=== PATIENT | female | born 1980 | race African-American/Black ===

== ENCOUNTER 2017-07-19 01:20 | Emergency (ER) | payer OTHER ==
[~2017-07-19] VITALS: Ht 170.2 cm; Wt 112.8 kg
[~2017-07-19 01:20] MED LIST: LISI-461 PO; METO25TA3 PO
[2017-07-19 01:25] VITALS: TEMP 36.7; Ht 170.2 cm; Wt 112.8 kg
[2017-07-19] MEDS ORDERED: SODIUM CHLORIDE 0.9% 1000ML 1,000 ML IV STA (01:42)
[2017-07-19] MEDS ORDERED: LORAZEPAM 2 MG/ML 1 ML VIAL IV STA (01:42)
[2017-07-19] MEDS ORDERED: LISI10TA PO (01:58)
[2017-07-19] MEDS ORDERED: METO50TA7 PO (01:58)
[2017-07-19 02:03] VITALS: O2SAT 98
[2017-07-19 02:10] LABS: BASO % 0.5 %; BASO ABS # 0.04 K/uL (0-0.2); COMPLETE YES; EOS % 1.8 %; HEMATOCRIT 42.2 % (37-47); IG% 0.1 %; LYMPH % 34.8 %; LYMPH ABS # 2.53 K/uL (1.2-3.4); MEAN CELL VOLUME 81.8 fL (80-100); MEAN CORPUSCULAR HEMOGLOBIN 26.9 pg (25-34); MEAN CORPUSCULAR HGB CONC 32.9 g/dl (32-36); MEAN PLATELET VOLUME 11.1 fL (7.4-10.4); MONO % 6.5 %; NEUT % 56.3 %; PLATELET COUNT 242 K/uL (130-400); RED BLOOD COUNT 5.16 M/uL (4.2-5.4); WHITE BLOOD COUNT 7.28 K/uL (4.8-10.8)
[2017-07-19 02:30] LABS: ALT/SGPT 23 U/L (12-78); AST/SGOT 13 U/L (15-37); BLOOD UREA NITROGEN 12 mg/dl (7-18); BUN/CREATININE RATIO 15.3 (10-20); CALCIUM 8.5 mg/dl (8.5-10.1); CARBON DIOXIDE 27 mmol/L (21-32); CHLORIDE 108 mmol/L (98-107); CREATININE 0.78 mg/dl (0.60-1.20); GLUCOSE 115 mg/dl (70-99); POTASSIUM 3.4 mmol/L (3.5-5.1); SODIUM 141 mmol/L (136-145)
[2017-07-19 02:34] LABS: ALKALINE PHOSPHATASE 32 U/L (45-117)
[2017-07-19 02:59] VITALS: BP 173/115; PULSE 82; O2SAT 99
--- NOTE | 2017-07-19 03:06 | EMERGENCY ROOM VISIT NOTE ---
History First contact with patient: :28 Chief Complaint: HEAD PAIN Stated Complaint: HEAD PAIN, DIZZY History of Present Illness The patient is a 37 year old female who presents to the Emergency Room with complaints of feeling stressed out and overwhelmed after finding out that her and is dying and will pass away within 24 hours. Patient states she is very upset about this. She now has a headache. Patient denies suicidal or homicidal ideations. Patient denies chest pain, dyspnea, fever, chills, cough, congestion, abdominal pain. Patient states she just feels overwhelmed about this news. She states she has a history of depression. Review of Systems See HPI for pertinent positives & negatives. A total of 10 systems reviewed and were otherwise negative. Past Medical/Surgical History Surgical Problems: (1) No pertinent past surgical history Hypertension Family History No pertinent family history Social History Smoking Status: Current Every Day Smoker Drug Use: none Marital Status: Housing Status: lives with family Occupation Status: employed Current/Historical Medications Scheduled Lisinopril (Prinivil), 10 MG PO DAILY Metoprolol Succ (Toprol Xl) (Toprol-Xl), 50 MG PO DAILY Physical Exam Vital Signs Date Time Temp Pulse Resp B/P (MAP) Pulse Ox O2 Delivery O2 Flow Rate FiO2 07/19/17 02:59 82 18 173/115 99 Room Air 07/19/17 02:03 98 Room Air 07/19/17 02:03 98 Room Air 07/19/17 01:25 36.7 76 20 198/126 98 Room Air Physical Exam VITALS: Vitals are noted on the nurse's note and reviewed by myself. Vital signs hypertensive GENERAL: Anxious tearful female who appears upset, in no acute distress, nondiaphoretic, well-developed well-nourished. SKIN: The skin was without rashes, erythema, edema, or bruising. There is no tenting of the skin. Capillary reflex less than 2 seconds. HEAD: Normocephalic atraumatic. EARS: External auditory canals clear, tympanic membranes pearly perez without erythema or effusion bilaterally. EYES: Pupils equal round and reactive to light and accommodation. Conjunctivae without injection, sclerae without icterus. Extraocular movements intact. NOSE: Patent, turbinates without inflammation or discharge. No sinus tenderness. MOUTH: Mucous membranes moist. Pharynx without erythema or exudate. Uvula midline. Airway patent. Tongue does not deviate. NECK: Supple without nuchal rigidity. No lymphadenopathy. No thyromegaly. Cervical spine is nontender. No JVD. HEART: Regular rate and rhythm without murmurs gallops or rubs. LUNGS: Clear to auscultation bilaterally without wheezes, rales or rhonchi. No dullness to percussion. No retractions or accessory muscle use. ABDOMEN: Positive bowel sounds x 4. Normal tympanic percussion. Soft, nontender, without masses or organomegaly. Dao sign negative. No guarding or rebound tenderness. MUSCULOSKELETAL: No muscle atrophy, erythema, or edema noted. NEURO: Patient was alert and oriented to person place and time. Normal sensation to light and sharp touch. No focal neurological deficits. Medical Decision & Procedures Laboratory Results 07/19/17 02:00 Red Blood Count 5.16, Mean Corpuscular Volume 81.8, Mean Corpuscular Hemoglobin 26.9, Mean Corpuscular Hemoglobin Concent 32.9, Mean Platelet Volume 11.1, Neutrophils (%) (Auto) 56.3, Lymphocytes (%) (Auto) 34.8, Monocytes (%) (Auto) 6.5, Eosinophils (%) (Auto) 1.8, Basophils (%) (Auto) 0.5, Neutrophils # (Auto) 4.10, Lymphocytes # (Auto) 2.53, Monocytes # (Auto) 0.47, Eosinophils # (Auto) 0.13, Basophils # (Auto) 0.04 07/19/17 02:00 Test 07/19/17 02:00 White Blood Count 7.28 K/uL (4.8-10.8) Red Blood Count 5.16 M/uL (4.2-5.4) Hemoglobin 13.9 g/dL (12.0-16.0) Hematocrit 42.2 % (37-47) Mean Corpuscular Volume 81.8 fL (80-100) Mean Corpuscular Hemoglobin 26.9 pg (25-34) Mean Corpuscular Hemoglobin Concent 32.9 g/dl (32-36) Platelet Count 242 K/uL (130-400) Mean Platelet Volume 11.1 fL (7.4-10.4) Neutrophils (%) (Auto) 56.3 % Lymphocytes (%) (Auto) 34.8 % Monocytes (%) (Auto) 6.5 % Eosinophils (%) (Auto) 1.8 % Basophils (%) (Auto) 0.5 % Neutrophils # (Auto) 4.10 K/uL (1.4-6.5) Lymphocytes # (Auto) 2.53 K/uL (1.2-3.4) Monocytes # (Auto) 0.47 K/uL (0.11-0.59) Eosinophils # (Auto) 0.13 K/uL (0-0.5) Basophils # (Auto) 0.04 K/uL (0-0.2) RDW Standard Deviation 43.3 fL (36.4-46.3) RDW Coefficient of Variation 14.5 % (11.5-14.5) Immature Granulocyte % (Auto) 0.1 % Immature Granulocyte # (Auto) 0.01 K/uL (0.00-0.02) Anion Gap 6.0 mmol/L (3-11) Est Creatinine Clear Calc Drug Dose 129.2 ml/min Estimated GFR () 113.4 Estimated GFR (Non- 97.8 BUN/Creatinine Ratio 15.3 (10-20) Calcium Level 8.5 mg/dl (8.5-10.1) Total Bilirubin 0.2 mg/dl (0.2-1) Direct Bilirubin < 0.1 mg/dl (0-0.2) Aspartate Amino Transf (AST/SGOT) 13 U/L (15-37) Alanine Aminotransferase (ALT/SGPT) 23 U/L (12-78) Alkaline Phosphatase 32 U/L (45-117) Troponin I < 0.015 ng/ml (0-0.045) Total Protein 7.5 gm/dl (6.4-8.2) Albumin 3.3 gm/dl (3.4-5.0) Medications Administered Medications (Trade) Dose Ordered Sig/Ronny Route Start Time Stop Time Status Last Admin Dose Admin Sodium Chloride 1,000 ml @ 999 mls/hr Q1H1M STAT IV 07/19/17 01:42 07/19/17 02:42 DC 07/19/17 02:00 999 MLS/HR Lorazepam (Ativan Inj) 1 mg NOW STAT IV 07/19/17 01:42 07/19/17 01:43 DC 07/19/17 02:01 1 MG ED Course Prior records/ancillary studies reviewed and summarized above. Nursing notes reviewed. The patient's history was concerning for feeling overwhelmed and stressed with headache after hearing that news about her grandmother passing away. Differential diagnosis: Etiologies such as situational response, stress reaction, behavior health, metabolic, infection, hypo/hyperglycemia, electrolyte abnormalities, cardiac sources, intracerebral event, toxicologic, neurologic, as well as others were entertained. Physical examination: As above. ER treatment provided: IV Lock Ativan On reassessment the patient felt better. Diagnostics interpretation by me: ECG: Normal sinus, normal intervals, no acute ST-T wave changes, impression normal sinus rhythm interpreted by myself The labs revealed negative troponin. Stable H&H Exam and history seem consistent with headache and high blood pressure most likely related to patient's recent bad news about her grandmother passing. This mostly the is a stress reaction. Patient felt better after being medicated as above. She denies any suicidal or homicidal ideations. She is advised to rest, decrease stress and follow-up family care in a few days or here in the ER sooner for headache, fevers, chest pains, no S4 yourself, worsening signs or symptoms or as needed. By the evaluation outlined above emergent etiologies such as infection, electrolyte abnormalities, cardiac sources, intracerebral event, toxologic, neurologic, abnormalities blood glucose, metabolic, as well as others were deemed relatively unlikely. The pt informed about the findings as listed above. All questions were answered and pleased with the treatment. Return instructions were outlined and the patient was discharged in stable condition. Outpatient prescription management: ativan Referral: The patient was referred back to primary care physician for follow-up in 2 to 3 days for a recheck of the current condition. case reviewed with my Attending Medical Decision As above Impression Primary Impression: Stress reaction Departure Information Dispostion Home / Self-Care Condition GOOD Referrals Disha CHOU M.D. (PCP) Patient Instructions My [facility] Additional Instructions DO NOT drive, drink alcohol, operate machinery, or perform dangerous activities today. You were given medications in the ER that can affect your ability to safely function or operate a vehicle. Ibuprofen(Motrin, Advil) may be used for fever or pain. Use 600mg every six hours as needed. Take with food. Avoid using more than 2400mg in a 24 hour period. Do not use 2400mg per day for more than three consecutive days without physician direction. Prolonged inappropriate use can lead to stomach upset or ulcers. (AND/OR) Acetaminophen(Tylenol) may be used for fever or pain. Use 1000mg every six hours as needed. Avoid using more than 3000mg in a 24 hour period. Ativan 1 m tablet every 6-8 hours as needed for anxiety. No alcohol Or driving on this medication. Rest and drink plenty of fluids as tolerated. Decrease stress. Continue current medications. Return to the ER immediately for abdominal pain, vomiting, fevers, chest pains, difficulty breathing, mood problems, worsening of your condition, or as needed. Follow up with your primary physician in 2-3 days for a recheck of your current condition.
[2017-07-19] MEDS ORDERED: ATIVAN 1MG HOMEPACK PO ONE (03:15)
== END 2017-07-19 03:22 | disposition home or self-care (01) ==
LOC: C.EDB 01:20
DX: F43.9 Reaction to severe stress, unspecified (principal); I10 Essential (primary) hypertension; F32.9 Major depressive disorder, single episode, unspecified; F17.210 Nicotine dependence, cigarettes, uncomplicated; Z79.899 Other long term (current) drug therapy

== ENCOUNTER 2024-01-22 20:47 | Observation (INO) ==
--- NOTE | 2024-01-22 21:29 | Emergency Department Note ---
Impression & Plan Vertigo, Abnormal angiogram of head, Hypomagnesemia, Hyperglycemia ED Provider Note NAME: MEAGAN DONNELLY AGE: 43 SEX: F : 1980 ARRIVES VIA: Walk-In INFORMANT: Patient ED PROVIDER(S): Kam Valiente DO CHIEF COMPLAINT: Dizzy and nauseated HPI: Patient is a 43-year-old female who presents to the ER for 3 to 4 days worth of dizziness. She notes she feels the room spinning. This generally occurs in the afternoon. It resolves throughout the remainder of the day. It is worse with movement of the head and any changing of positions. If she states still goes away. She denies any change or loss of vision. No chest pain or shortness of breath. No weakness or numbness in the arms or legs. She does admit to some nausea. No dysuria urgency or frequency. No other exacerbating or remitting factors. ADDITIONAL HISTORY OBTAINED: Per HPI Chronic Medical/Social Conditions Affecting Care: Per HPI PAST MEDICAL HISTORY:See Below PAST SURGICAL HISTORY:See Below FAMILY HISTORY:See Below SOCIAL HISTORY:See Below HOME MEDICATIONS:See Below ALLERGIES:See Below VITALS:See Below PHYSICAL EXAMINATION: GENERAL: Sitting up in bed, alert, well appearing, well nourished, no distress, non-toxic EYE EXAM: normal conjunctiva. PERRL and EOM's intact. OROPHARYNX: no exudate, no erythema, lips, buccal mucosa, and tongue normal and mucous membranes are moist NECK: supple, no nuchal rigidity, no adenopathy, non-tender LUNGS: Clear to auscultation. Normal chest wall mechanics HEART: no murmurs, S1 normal and S2 normal ABDOMEN: abdomen soft, non-tender, normo-active bowel sounds, no masses, no rebound or guarding. BACK: Back is symmetrical on inspection and there is no deformity, no midline tenderness, no CVA tenderness. SKIN: no rashes and no bruising UPPER EXTREMITIES: upper extremities are grossly normal. LOWER EXTREMITIES: No pitting edema. NEURO EXAM: Normal sensorium, cranial nerves II-XII intact, normal speech, no weakness of arms, no weakness of legs. No drift. Finger to nose intact. Gross sensation intact. MEDICAL DECISION MAKING: Patient is a 43-year-old female who presents ER for above-stated complaint. IV was established blood work was obtained. Labs show no significant leukocytosis or anemia. BMP with mild hypokalemia 3.2. Creatinine slightly elevated at 1.6. LFTs bilirubin was unremarkable. Mag at 1.4. Lipase was normal. hCG was negative. UA was contaminated. No urinary symptoms. She was given Antivert and fluids and her symptoms did not improve. CT angio of the head and neck does suggest abnormality of the right vert. This was discussed with Dr. Taz Lara from [facility] neurology. He recommended admission and MRI and full workup. I discussed this with the patient as well as the hospitalist for further evaluation management treatment. Consults/Care Managements Discussions: Per [facility] Triage Nursing notes reviewed. Limited review of prior medical records performed Vital Signs: reviewed and remarkable for no significant abnormalities Differential diagnosis: Differential diagnosis includes etiologies such as benign positional vertigo, dehydration, hypovolemia, anemia, tumor, infection, hypoglycemia, electrolyte abnormalities, cardiac sources, intracerebral event, toxicologic, neurological, as well as others were entertained. ER treatment provided: See below Diagnostics interpreted by me include EKG and cardiac monitoring as listed below: -Cardiac Monitoring: An order was placed for continuous cardiac monitoring. The monitor shows a rate of 80 with sinus rhythm. -ECG: Sinus rhythm rate 85 Normal axis No PVCs QTc 442 -Laboratory studies:Interpreted by me as stated above in MDM and shown below. Imaging studies: Xrays: As interpreted by me: Portable AP upright 1 view of the chest shows no focal CTs show: CT angios of the head and neck as described above Procedures:none Critical Care: None Past Med/Surg History Medical History Diabetes Hypertension Surgical History History of carpal tunnel surgery Social History Smoking Status: Current some day smoker Tobacco Type: Cigarettes Preferred Language: Lebanese Feels Safe at Home: Yes Allergies Allergies Allergy/AdvReac Type Severity Reaction Status Date / Time No Known Allergies Allergy Verified 01/23/24 00:05 Home Meds Home Medications Medication Instructions Recorded Confirmed hydrochlorothiazide 25 mg tablet 25 mg PO QAM 11/22/18 01/22/24 lisinopril 40 mg tablet 40 mg PO QAM 11/22/18 01/23/24 metformin 500 mg tablet,extended 1,000 mg PO QDD 11/22/18 01/23/24 release 24 hr metoprolol succinate 100 mg 100 mg PO QAM 11/22/18 01/23/24 tablet,extended release 24 hr albuterol sulfate 90 mcg/actuation 2 puff inhalation Q4H PRN Wheezing 09/21/22 01/23/24 aerosol inhaler amlodipine 5 mg tablet 5 mg PO QAM 09/21/22 01/23/24 metoprolol succinate 50 mg 50 mg PO QAM 09/21/22 01/22/24 tablet,extended release 24 hr hydralazine 25 mg tablet 25 mg PO DAILY 03/01/23 01/22/24 liraglutide 0.6 mg/0.1 mL (18 mg/3 1.8 mg subcut DAILY 01/22/24 01/22/24 mL) subcutaneous pen injector (eXpresso 3-Raul) escitalopram oxalate 10 mg tablet 10 mg PO QAM 01/23/24 01/23/24 Results & Data (ED) Vital Signs Vital Signs - 24 hr 01/22/24 20:51 01/22/24 21:09 01/22/24 21:10 Temperature 36.1 C L Temperature Source Temporal Artery Scan Pulse Rate 86 86 88 Pulse Rate [Finger] Pulse Rate from SpO2 Sensor Pulse Rhythm [Finger] Respiratory Rate 16 17 Respiratory Effort / Characteristics Respiratory Depth Blood Pressure 135/89 Blood Pressure [Left Arm] Blood Pressure Mean 104 Blood Pressure Mean [Left Arm] Pulse Oximetry 98 Oxygen Delivery Method Room Air Sepsis Recent Fever Within 48 Hours No Sepsis New/Unexplained Change in Mental Status No Sepsis Action Taken by Nursing No Action Required 01/22/24 21:10 01/22/24 21:16 01/22/24 21:16 Temperature Temperature Source Pulse Rate 94 H 90 90 Pulse Rate [Finger] Pulse Rate from SpO2 Sensor 90 Pulse Rhythm [Finger] Respiratory Rate 15 20 20 Respiratory Effort / Characteristics Respiratory Depth Blood Pressure 116/90 Blood Pressure [Left Arm] Blood Pressure Mean 99 Blood Pressure Mean [Left Arm] Pulse Oximetry 98 98 Oxygen Delivery Method Sepsis Recent Fever Within 48 Hours Sepsis New/Unexplained Change in Mental Status Sepsis Action Taken by Nursing 01/22/24 21:17 01/22/24 21:20 01/22/24 21:30 Temperature Temperature Source Pulse Rate 99 H 78 Pulse Rate [Finger] 87 Pulse Rate from SpO2 Sensor 80 78 Pulse Rhythm [Finger] Regular Respiratory Rate 14 12 14 Respiratory Effort / Characteristics Non-Labored Respiratory Depth Normal Blood Pressure Blood Pressure [Left Arm] 116/90 Blood Pressure Mean Blood Pressure Mean [Left Arm] 98 Pulse Oximetry 98 99 99 Oxygen Delivery Method Room Air Sepsis Recent Fever Within 48 Hours Sepsis New/Unexplained Change in Mental Status Sepsis Action Taken by Nursing 01/22/24 21:55 01/22/24 22:00 01/22/24 22:03 Temperature Temperature Source Pulse Rate 93 H 81 81 Pulse Rate [Finger] Pulse Rate from SpO2 Sensor 81 80 Pulse Rhythm [Finger] Respiratory Rate 11 L 15 15 Respiratory Effort / Characteristics Respiratory Depth Blood Pressure Blood Pressure [Left Arm] Blood Pressure Mean Blood Pressure Mean [Left Arm] Pulse Oximetry 98 99 Oxygen Delivery Method Sepsis Recent Fever Within 48 Hours Sepsis New/Unexplained Change in Mental Status Sepsis Action Taken by Nursing 01/22/24 22:03 01/22/24 22:10 01/22/24 22:20 Temperature Temperature Source Pulse Rate 81 75 74 Pulse Rate [Finger] Pulse Rate from SpO2 Sensor 76 75 Pulse Rhythm [Finger] Respiratory Rate 15 12 16 Respiratory Effort / Characteristics Respiratory Depth Blood Pressure 119/74 Blood Pressure [Left Arm] Blood Pressure Mean 95 Blood Pressure Mean [Left Arm] Pulse Oximetry 99 98 100 Oxygen Delivery Method Sepsis Recent Fever Within 48 Hours Sepsis New/Unexplained Change in Mental Status Sepsis Action Taken by Nursing 01/22/24 22:30 01/22/24 22:30 01/22/24 22:40 Temperature Temperature Source Pulse Rate 75 75 89 Pulse Rate [Finger] Pulse Rate from SpO2 Sensor 75 88 Pulse Rhythm [Finger] Respiratory Rate 13 13 21 Respiratory Effort / Characteristics Respiratory Depth Blood Pressure 130/88 Blood Pressure [Left Arm] Blood Pressure Mean 101 Blood Pressure Mean [Left Arm] Pulse Oximetry 100 100 97 Oxygen Delivery Method Sepsis Recent Fever Within 48 Hours Sepsis New/Unexplained Change in Mental Status Sepsis Action Taken by Nursing 01/22/24 22:50 01/22/24 23:00 01/22/24 23:00 Temperature Temperature Source Pulse Rate 82 71 71 Pulse Rate [Finger] Pulse Rate from SpO2 Sensor 77 72 Pulse Rhythm [Finger] Respiratory Rate 15 12 12 Respiratory Effort / Characteristics Respiratory Depth Blood Pressure 135/94 Blood Pressure [Left Arm] Blood Pressure Mean 121 Blood Pressure Mean [Left Arm] Pulse Oximetry 98 99 99 Oxygen Delivery Method Sepsis Recent Fever Within 48 Hours Sepsis New/Unexplained Change in Mental Status Sepsis Action Taken by Nursing 01/22/24 23:10 01/22/24 23:20 01/22/24 23:30 Temperature Temperature Source Pulse Rate 76 89 76 Pulse Rate [Finger] Pulse Rate from SpO2 Sensor 78 90 76 Pulse Rhythm [Finger] Respiratory Rate 26 H 21 16 Respiratory Effort / Characteristics Respiratory Depth Blood Pressure Blood Pressure [Left Arm] Blood Pressure Mean Blood Pressure Mean [Left Arm] Pulse Oximetry 99 96 99 Oxygen Delivery Method Sepsis Recent Fever Within 48 Hours Sepsis New/Unexplained Change in Mental Status Sepsis Action Taken by Nursing 01/22/24 23:31 01/22/24 23:31 01/22/24 23:40 Temperature Temperature Source Pulse Rate 75 75 84 Pulse Rate [Finger] Pulse Rate from SpO2 Sensor 76 82 Pulse Rhythm [Finger] Respiratory Rate 18 18 12 Respiratory Effort / Characteristics Respiratory Depth Blood Pressure 148/96 H Blood Pressure [Left Arm] Blood Pressure Mean 109 Blood Pressure Mean [Left Arm] Pulse Oximetry 99 99 99 Oxygen Delivery Method Sepsis Recent Fever Within 48 Hours Sepsis New/Unexplained Change in Mental Status Sepsis Action Taken by Nursing 01/22/24 23:50 01/23/24 00:00 01/23/24 00:00 Temperature Temperature Source Pulse Rate 81 80 80 Pulse Rate [Finger] Pulse Rate from SpO2 Sensor 80 83 Pulse Rhythm [Finger] Respiratory Rate 17 12 12 Respiratory Effort / Characteristics Respiratory Depth Blood Pressure 143/100 H Blood Pressure [Left Arm] Blood Pressure Mean 106 Blood Pressure Mean [Left Arm] Pulse Oximetry 99 100 100 Oxygen Delivery Method Sepsis Recent Fever Within 48 Hours Sepsis New/Unexplained Change in Mental Status Sepsis Action Taken by Nursing 01/23/24 00:10 01/23/24 00:20 01/23/24 00:30 Temperature Temperature Source Pulse Rate 72 86 71 Pulse Rate [Finger] Pulse Rate from SpO2 Sensor 69 80 72 Pulse Rhythm [Finger] Respiratory Rate 8 L 11 L 14 Respiratory Effort / Characteristics Respiratory Depth Blood Pressure Blood Pressure [Left Arm] Blood Pressure Mean Blood Pressure Mean [Left Arm] Pulse Oximetry 98 99 98 Oxygen Delivery Method Sepsis Recent Fever Within 48 Hours Sepsis New/Unexplained Change in Mental Status Sepsis Action Taken by Nursing 01/23/24 00:31 01/23/24 00:31 01/23/24 00:40 Temperature Temperature Source Pulse Rate 71 71 76 Pulse Rate [Finger] Pulse Rate from SpO2 Sensor 77 76 Pulse Rhythm [Finger] Respiratory Rate 16 16 14 Respiratory Effort / Characteristics Respiratory Depth Blood Pressure 139/88 Blood Pressure [Left Arm] Blood Pressure Mean 99 Blood Pressure Mean [Left Arm] Pulse Oximetry 98 98 98 Oxygen Delivery Method Room Air Sepsis Recent Fever Within 48 Hours Sepsis New/Unexplained Change in Mental Status Sepsis Action Taken by Nursing 01/23/24 00:50 Temperature Temperature Source Pulse Rate 74 Pulse Rate [Finger] Pulse Rate from SpO2 Sensor 76 Pulse Rhythm [Finger] Respiratory Rate 17 Respiratory Effort / Characteristics Respiratory Depth Blood Pressure Blood Pressure [Left Arm] Blood Pressure Mean Blood Pressure Mean [Left Arm] Pulse Oximetry 98 Oxygen Delivery Method Sepsis Recent Fever Within 48 Hours Sepsis New/Unexplained Change in Mental Status Sepsis Action Taken by Nursing Laboratory Data 01/22/24 21:04 01/22/24 21:04 Lab Results 01/22/24 01/22/24 01/22/24 Range/Units 21:04 21:05 21:44 WBC 7.40 (4.8-10.8) K/ul RBC 5.54 H (4.20-5.40) M/uL Hgb 14.3 (12.0-16.0) g/dl Hct 43.0 (37.0-47.0) % MCV 77.6 L (80.0-100.0) fL MCH 25.8 (25.0-34.0) pg MCHC 33.3 (32.0-36.0) g/dL RDW Std Deviation 41.7 (36.4-46.3) fL RDW Coeff of Kd 15.0 H (11.5-14.5) % Plt Count 324 (130-400) K/uL MPV 11.8 (9.4-12.4) fL Immature Gran % (Auto) 0.4 % Neut % (Auto) 56.1 % Lymph % (Auto) 28.8 % Routt % (Auto) 13.0 % Eos % (Auto) 0.5 % Baso % (Auto) 1.2 % Neut # (Auto) 4.15 (1.40-6.50) K/uL Lymph # (Auto) 2.13 (1.20-3.40) K/uL [place] # (Auto) 0.96 H (0.11-0.59) K/uL Eos # (Auto) 0.04 (0.00-0.50) K/uL Baso # (Auto) 0.09 (0.00-0.20) K/uL Immature Gran # (Auto) 0.03 (0.01-0.20) K/uL Sodium 138 (136-145) mmol/L Potassium 3.2 L (3.5-5.1) mmol/L Chloride 100 (98-107) mmol/L Carbon Dioxide 26 (21-32) mmol/L Anion Gap 12 H (3-11) BUN 24 H (6-23) mg/dl Creatinine 1.65 H (0.6-1.2) mg/dl Est Cr Clr Drug Dosing 55.6 ml/min Est GFR ( Amer) 43.9 ml/min Est GFR (Non-Af Amer) 37.9 ml/min BUN/Creatinine Ratio 14.5 (10-20) Glucose 146 H (70-99(Fasting)) mg/dl Calcium 10.0 (8.6-10.3) mg/dl Magnesium 1.4 L (1.7-2.4) mg/dl Total Bilirubin 0.5 (0.2-1.0) mg/dl AST 17 (13-39) U/L ALT 19 (7-52) U/L Alkaline Phosphatase 36 (34-104) U/L Troponin I High Sens 10.0 (0-14) pg/ml Total Protein 7.8 (6.0-8.3) gm/dl Albumin 4.4 (3.4-5.0) gm/dl Globulin 3.4 (2.5-4.0) gm/dl Albumin/Globulin Ratio 1.3 (0.9-2) Lipase 52 (11-82) U/L HCG, Qual Negative (Negative) Urine Color Dark Yellow Urine Appearance Turbid A (Clear) Urine pH 5.0 (4.5-7.5) Ur Specific [place] 1.029 (1.000-1.030) Urine Protein 2+ H (Negative) Urine Glucose (UA) Negative (Negative) Urine Ketones 1+ H (Negative) Urine Blood Negative (Negative) Urine Nitrite Negative (Negative) Urine Bilirubin 1+ H (Negative) Urine Urobilinogen Negative (Negative) Ur Leukocyte Esterase Trace H (Negative) Urine WBC (Auto) 10-30 H (0-5) /hpf Urine RBC (Auto) 0-4 (0-4) /hpf U Hyaline Cast (Auto) 1-5 (0-5) /lpf U Epithel Cells (Auto) >30 H (0-5) /lpf Urine Bacteria (Auto) 4+ H (Negative) Urine Yeast Not Reportable Administered Medications Discontinued Medications Sodium Chloride (Nss) 1,000 mls @ 999 mls/hr IV .Q1H1M KIP Stop: 01/22/24 23:30 Last Infusion: 01/22/24 23:34 Dose: Infused Documented By: Admin: 01/22/24 22:22 Dose: 999 mls/hr Documented By: Infusion: 01/22/24 22:22 Dose: Infused Documented By: Admin: 01/22/24 21:44 Dose: 999 mls/hr Documented By: SOLO Sodium Chloride (Nss) 500 mls @ 999 mls/hr IV .Q31M ONE Stop: 01/22/24 23:58 Last Infusion: 01/23/24 00:15 Dose: Infused Documented By: Admin: 01/22/24 23:42 Dose: 999 mls/hr Documented By: SOLO Ioversol (Optiray 320 125ml) 118 ml IV ONCE ONE Stop: 01/22/24 21:56 Last Admin: 01/22/24 21:55 Dose: 118 ml Documented By: LAURA Meclizine HCl (Meclizine Hcl 25 Mg Tab) 25 mg PO NOW STA Stop: 01/22/24 21:29 Last Admin: 01/22/24 21:43 Dose: 25 mg Documented By: SOLO Potassium Chloride (Potassium Chloride 10 Meq Tabcr) 40 meq PO NOW STA Stop: 01/22/24 23:29 Last Admin: 01/22/24 23:41 Dose: 40 meq Documented By: SOLO Imaging Data Radiologist's Impression: Head CTA 01/22/24 21:27 Exam(s): CTA HEAD W/WO Contrast IV Amt: 118 cc opti 320 EXAM: CT Angiography Head Without and With Intravenous Contrast CLINICAL HISTORY: Reason for exam: dizzy. TECHNIQUE: Axial computed tomographic angiography images of the head without and with intravenous contrast. CTDI is 38.03 mGy and DLP is 1204.43 mGy-cm. Automated exposure control was utilized for the study. A dose lowering technique was utilized adhering to the principles of ALARA. MIP reconstructed images were created and reviewed. CONTRAST: Patient received 118 cc opti 320 of IV contrast COMPARISON: None. FINDINGS: VASCULATURE: Right internal carotid artery: No acute findings. Intracranial segment is patent with no significant stenosis. No aneurysm. Right anterior cerebral artery: Unremarkable. No occlusion or significant stenosis. No aneurysm. Right middle cerebral artery: Unremarkable. No occlusion or significant stenosis. No aneurysm. Right posterior cerebral artery: Unremarkable. No occlusion or significant stenosis. No aneurysm. Right vertebral artery: There is diffuse very small size/hypoplastic right vertebral artery with the distal aspect suboptimally visualized, difficult to exclude stenosis or near occlusion versus congenital small size. Left internal carotid artery: No acute findings. Intracranial segment is patent with no significant stenosis. No aneurysm. Left anterior cerebral artery: Unremarkable. No occlusion or significant stenosis. No aneurysm. Left middle cerebral artery: Unremarkable. No occlusion or significant stenosis. No aneurysm. Left posterior cerebral artery: Unremarkable. No occlusion or significant stenosis. No aneurysm. Left vertebral artery: There is a dominant left-sided vertebral artery otherwise patent and within normal limits. Basilar artery: Unremarkable. No occlusion or significant stenosis. No aneurysm. HEAD: Brain: No acute findings. No hemorrhage. No edema. Normal enhancement. Ventricles: Unremarkable. No ventriculomegaly. Bones/joints: No acute fracture. Soft tissues: Unremarkable. Sinuses: Unremarkable as visualized. No acute sinusitis. Mastoid air cells: Unremarkable as visualized. No mastoid effusion. 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 Otherwise negative CT angiogram of the brain with no focal stenosis, occlusion or aneurysm. Electronically signed by: Rose Mclean MD 01/22/24 22:29 PM Neck CTA 01/22/24 21:27 Exam(s): CTA NECK With Contrast IV Amt: 118 cc opti 320 EXAM: CT Angiography Neck With Intravenous Contrast CLINICAL HISTORY: Reason for exam: dizzy. TECHNIQUE: Routine carotid CT angiography protocol was performed with intravenous contrast. NASCET criteria using the distal ICAs for comparison were used for evaluation of stenoses. CTDI is 38.03 mGy and DLP is 1204.43 mGy-cm. Automated exposure control was utilized for the study. A dose lowering technique was utilized adhering to the principles of ALARA. MIP reconstructed images were created and reviewed. CONTRAST: Patient received 118 cc opti 320 of IV contrast COMPARISON: None. FINDINGS: VASCULATURE: Right common carotid artery: Unremarkable. No occlusion or significant stenosis. No dissection. Right internal carotid artery: Unremarkable. Extracranial segment is patent with no occlusion or significant stenosis. No dissection. Right external carotid artery: Unremarkable. No occlusion. Right vertebral artery: Diffuse very small size of the right vertebral artery otherwise normal preserved patency. No occlusion or significant stenosis. No dissection. Left common carotid artery: Unremarkable. No occlusion or significant stenosis. No dissection. Left internal carotid artery: Unremarkable. Extracranial segment is patent with no occlusion or significant stenosis. No dissection. Left external carotid artery: Unremarkable. No occlusion. Left vertebral artery: Dominant left-sided vertebral artery otherwise normal left vertebral artery. No occlusion or significant stenosis. No dissection. NECK: Bones/joints: Unremarkable. No acute fracture. Soft tissues: Unremarkable. Lung apices: Clear. CAROTID STENOSIS REFERENCE USING NASCET CRITERIA: % ICA stenosis = (1 - narrowest ICA diameter/diameter of distal cervical ICA) x 100. Mild - <50% stenosis. Moderate - 50-69% stenosis. Severe - 70-94% stenosis. Near occlusion - 95-99% stenosis. Occluded - 100% stenosis. IMPRESSION: Negative CT angiogram of the neck with no focal stenosis, occlusion or dissection seen. Electronically signed by: Rose Mclean MD 01/22/24 22:23 PM Discharge Plan Visit Data Chief Complaint: Vertigo Stated Complaint: DIZZY, NAUSEA, SLIGHT VERTIGO ED Provider: Kam Valiente Discharge Problem: Vertigo, Abnormal angiogram of head, Hypomagnesemia, Hyperglycemia Forms Stand Alone Forms: My [facility] Prescriptions Prescriptions: No Action metoprolol succinate 100 mg tablet extended release 24 hr 100 mg PO QAM Rx Instructions: TOTAL DOSE 150 MG--TAKES WITH 50 MG TAB. hydrochlorothiazide 25 mg tablet 25 mg PO QAM lisinopril 40 mg tablet 40 mg PO QAM metformin 500 mg tablet extended release 24 hr 1,000 mg PO QDD metoprolol succinate 50 mg tablet extended release 24 hr 50 mg PO QAM Rx Instructions: TOTAL DOSE 150 MG--TAKES WITH 100 MG TAB. amlodipine 5 mg tablet 5 mg PO QAM albuterol sulfate 90 mcg/actuation HFA aerosol inhaler 2 puff INHALATION Q4H PRN (Reason: Wheezing) hydralazine 25 mg tablet 25 mg PO DAILY Rx Instructions: ORDERED TID BUT TAKES ONLY DAILY Victoza 3-Raul 0.6 mg/0.1 mL (18 mg/3 mL) pen injector 1.8 mg SUBCUT DAILY escitalopram oxalate 10 mg tablet 10 mg PO QAM Referrals Referrals: Hanna Sierra MD [Physician] -
[2024-01-22 21:38] LABS: Albumin Globulin Ratio 1.3 (0.9-2); Albumin Level 4.4 gm/dl (3.4-5.0); BUN Creatinine Ratio 14.5 (10-20); Basophils # (auto) 0.09 K/uL (0.00-0.20); Basophils % (auto) 1.2 %; Bilirubin,Total 0.5 mg/dl (0.2-1.0); Creatinine Clr Calc Pharmacy 55.6 ml/min; Eosinophils # (auto) 0.04 K/uL (0.00-0.50); Eosinophils % (auto) 0.5 %; Est GFR (African American) 43.9 ml/min; Est GFR (Non-African American) 37.9 ml/min; Globulin 3.4 gm/dl (2.5-4.0); Hemoglobin 14.3 g/dl (12.0-16.0); Immature Granulocytes # (auto) 0.03 K/uL (0.01-0.20); Immature Granulocytes % (auto) 0.4 %; Lymphocytes # (auto) 2.13 K/uL (1.20-3.40); Lymphocytes % (auto) 28.8 %; Mean Corpuscular Hemoglobin 25.8 pg (25.0-34.0); Mean Corpuscular Hgb Conc 33.3 g/dL (32.0-36.0); Mean Corpuscular Volume 77.6 fL (80.0-100.0); Mean Platelet Volume 11.8 fL (9.4-12.4); Monocytes # (auto) 0.96 K/uL (0.11-0.59); Neutrophils # (auto) 4.15 K/uL (1.40-6.50); Neutrophils % (auto) 56.1 %; Platelet Count 324 K/uL (130-400); Potassium 3.2 mmol/L (3.5-5.1); RDW Standard Deviation 41.7 fL (36.4-46.3); Red Blood Count 5.54 M/uL (4.20-5.40); Total Protein 7.8 gm/dl (6.0-8.3)
[2024-01-22] MEDS: MECLIZINE HCL 25 MG TAB PO STA (21:43)
[2024-01-22] MEDS: SODIUM CHLORIDE 0.9% 1,000 ML IV SCH (21:44)
[2024-01-22 21:48] LABS: Pregnancy Test, Serum Negative (Negative)
[2024-01-22 21:55] LABS: Appearance Urine Turbid (Clear); Bacteria Urine Automated 4+ (Negative); Blood Urine Negative (Negative); Color Urine Dark Yellow; Epithelial Cell Urine Auto >30 /lpf (0-5); Glucose Urine UA Negative (Negative); Ketones Urine 1+ (Negative); Leukocyte Esterase Urine Trace (Negative); Nitrite Urine Negative (Negative); Protein Urine 2+ (Negative); Specific Gravity Urine 1.029 (1.000-1.030); Urobilinogen Urine Negative (Negative)
[2024-01-22] MEDS: OPTIRAY 320 125ml IV ONE (21:55)
[2024-01-22 21:59] LABS: Bilirubin Urine 1+ (Negative)
[2024-01-22 22:18] LABS: RBC Urine Automated 0-4 /hpf (0-4)
--- NOTE | 2024-01-22 22:24 | CT Scan Report ---
Exam(s): CTA NECK With Contrast IV Amt: 118 cc opti 320 EXAM: CT Angiography Neck With Intravenous Contrast CLINICAL HISTORY: Reason for exam: dizzy. TECHNIQUE: Routine carotid CT angiography protocol was performed with intravenous contrast. NASCET criteria using the distal ICAs for comparison were used for evaluation of stenoses. CTDI is 38.03 mGy and DLP is 1204.43 mGy-cm. Automated exposure control was utilized for the study. A dose lowering technique was utilized adhering to the principles of ALARA. MIP reconstructed images were created and reviewed. CONTRAST: Patient received 118 cc opti 320 of IV contrast COMPARISON: None. FINDINGS: VASCULATURE: Right common carotid artery: Unremarkable. No occlusion or significant stenosis. No dissection. Right internal carotid artery: Unremarkable. Extracranial segment is patent with no occlusion or significant stenosis. No dissection. Right external carotid artery: Unremarkable. No occlusion. Right vertebral artery: Diffuse very small size of the right vertebral artery otherwise normal preserved patency. No occlusion or significant stenosis. No dissection. Left common carotid artery: Unremarkable. No occlusion or significant stenosis. No dissection. Left internal carotid artery: Unremarkable. Extracranial segment is patent with no occlusion or significant stenosis. No dissection. Left external carotid artery: Unremarkable. No occlusion. Left vertebral artery: Dominant left-sided vertebral artery otherwise normal left vertebral artery. No occlusion or significant stenosis. No dissection. NECK: Bones/joints: Unremarkable. No acute fracture. Soft tissues: Unremarkable. Lung apices: Clear. CAROTID STENOSIS REFERENCE USING NASCET CRITERIA: % ICA stenosis = (1 - narrowest ICA diameter/diameter of distal cervical ICA) x 100. Mild - <50% stenosis. Moderate - 50-69% stenosis. Severe - 70-94% stenosis. Near occlusion - 95-99% stenosis. Occluded - 100% stenosis. IMPRESSION: Negative CT angiogram of the neck with no focal stenosis, occlusion or dissection seen. Electronically signed by: Rose Mclean MD 01/22/24 22:23 PM
--- NOTE | 2024-01-22 22:30 | CT Scan Report ---
Exam(s): CTA HEAD W/WO Contrast IV Amt: 118 cc opti 320 EXAM: CT Angiography Head Without and With Intravenous Contrast CLINICAL HISTORY: Reason for exam: dizzy. TECHNIQUE: Axial computed tomographic angiography images of the head without and with intravenous contrast. CTDI is 38.03 mGy and DLP is 1204.43 mGy-cm. Automated exposure control was utilized for the study. A dose lowering technique was utilized adhering to the principles of ALARA. MIP reconstructed images were created and reviewed. CONTRAST: Patient received 118 cc opti 320 of IV contrast COMPARISON: None. FINDINGS: VASCULATURE: Right internal carotid artery: No acute findings. Intracranial segment is patent with no significant stenosis. No aneurysm. Right anterior cerebral artery: Unremarkable. No occlusion or significant stenosis. No aneurysm. Right middle cerebral artery: Unremarkable. No occlusion or significant stenosis. No aneurysm. Right posterior cerebral artery: Unremarkable. No occlusion or significant stenosis. No aneurysm. Right vertebral artery: There is diffuse very small size/hypoplastic right vertebral artery with the distal aspect suboptimally visualized, difficult to exclude stenosis or near occlusion versus congenital small size. Left internal carotid artery: No acute findings. Intracranial segment is patent with no significant stenosis. No aneurysm. Left anterior cerebral artery: Unremarkable. No occlusion or significant stenosis. No aneurysm. Left middle cerebral artery: Unremarkable. No occlusion or significant stenosis. No aneurysm. Left posterior cerebral artery: Unremarkable. No occlusion or significant stenosis. No aneurysm. Left vertebral artery: There is a dominant left-sided vertebral artery otherwise patent and within normal limits. Basilar artery: Unremarkable. No occlusion or significant stenosis. No aneurysm. HEAD: Brain: No acute findings. No hemorrhage. No edema. Normal enhancement. Ventricles: Unremarkable. No ventriculomegaly. Bones/joints: No acute fracture. Soft tissues: Unremarkable. Sinuses: Unremarkable as visualized. No acute sinusitis. Mastoid air cells: Unremarkable as visualized. No mastoid effusion. 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 Otherwise negative CT angiogram of the brain with no focal stenosis, occlusion or aneurysm. Electronically signed by: Rose Mclean MD 01/22/24 22:29 PM
[2024-01-22] MEDS: POTASSIUM CHLORIDE 10 MEQ TABCR PO STA (23:41)
[2024-01-22] MEDS: SODIUM CHLORIDE 0.9% 500 ML IV ONE (23:42)
[2024-01-23 00:29] LABS: Magnesium 1.4 mg/dl (1.7-2.4)
--- NOTE | 2024-01-23 01:30 | History & Physical Report ---
Date of Service January 23, 2024 Assessment & Plan (1) Dizziness: Plan: Likely BPPV given spinning description Rule out orthostasis given some worsening with bending over. Rule out CVA given abnormal brain vasculature on CT angio ARF, possible clinical dehydration given ketonuria HTN, slightly elevated hyperlipidemia, not on maintenance Rx DM 2 on oral medications, suboptimal control as of hemoglobin A1c of 7.16 December 2203 mood disorder, stable past tobacco abuse OBS Neurochecks Supportive management for BPPV Silvino maneuver by PT if still persistent in a.m. Check orthostatic vitals MRI brain Re: Dizziness with abnormal CT angio Additional stroke workup contingent on MRI results Permissive hypertension for now Monitor creatinine response to IVF, hold lisinopril until creatinine back to baseline Basal bolus insulin, ISS BG goal 1 10-1 40, carb count coverage DVT prophylaxis with Heparin subcu Full code Text document was generated using [employer] voice recognition software. It may contain grammatical or spelling errors. Kindly contact undersigned for clarification of any documentation item in question. History of Present Illness Chief Complaint: Dizziness Primary Care Provider: Heather Wiggins PA-C History obtained from patient and records. Medical history significant for HTN, hyperlipidemia, DM 2 on oral medications, mood disorder, past tobacco abuse. Last ER visit November 2023 for ectopic . Patient given methotrexate at the ER and discharged home by OB service. Few days history of dizziness described as both spinning and lightheadedness. Symptoms somewhat made worse with head motion and bending over.. No actual headache, hearing loss, or tinnitus symptoms. Intermittent episodes lasting minutes throughout the day. Patient wondering if symptoms secondary to decision to stop smoking recently. No chest pain, no SOB, no unusual cough symptoms. 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 Allergies Allergy/AdvReac Type Severity Reaction Status Date / Time No Known Allergies Allergy Verified 01/23/24 00:05 Home Medications Medication Instructions Recorded Confirmed Type hydrochlorothiazide 25 mg tablet 25 mg PO QAM 11/22/18 01/22/24 History lisinopril 40 mg tablet 40 mg PO QAM 11/22/18 01/23/24 History metformin 500 mg tablet,extended 1,000 mg PO QDD 11/22/18 01/23/24 History release 24 hr metoprolol succinate 100 mg 100 mg PO QAM 11/22/18 01/23/24 History tablet,extended release 24 hr albuterol sulfate 90 mcg/actuation 2 puff inhalation Q4H PRN Wheezing 09/21/22 01/23/24 History aerosol inhaler amlodipine 5 mg tablet 5 mg PO QAM 09/21/22 01/23/24 History metoprolol succinate 50 mg 50 mg PO QAM 09/21/22 01/22/24 History tablet,extended release 24 hr hydralazine 25 mg tablet 25 mg PO DAILY 03/01/23 01/22/24 History liraglutide 0.6 mg/0.1 mL (18 mg/3 1.8 mg subcut DAILY 01/22/24 01/22/24 History mL) subcutaneous pen injector (Victoza 3-Raul) escitalopram oxalate 10 mg tablet 10 mg PO QAM 01/23/24 01/23/24 History Past Med/Surg History Medical History Diabetes Hypertension Surgical History History of carpal tunnel surgery Social History Smoking Status: Never smoker Tobacco Type: Cigarettes Second Hand Exposure: No; Do You Dip or Chew Tobacco: No; Tobacco Cessation Education Requested by Patient: No Hx Alcohol Use: No Hx Substance Use: No Preferred Language: Mexican Communication Ability: Effective Dockmaster Required: No Beliefs That Will Affect Care: None Current Living Situation: Family Other Information That Helps Us Care for You: No Feels Safe at Home: Yes Safety Concerns: Feels Safe At This Time Assistive Devices: None Review of Systems Review of Systems: As per HPI, all other systems reviewed and negative Physical Exam Physical Exam: GENERAL: Comfortable, pleasant, obese, no respiratory distress SKIN: Normal color, warm HEENT: [place] palpebral conjunctivae, no ptosis, dry buccal mucosa NECK : Supple, no tenderness CHEST : CTA, no tenderness HEART : RRR, no obvious murmurs ABDOMEN: Some distention, nontender EXTREMITIES : Minimal LE swelling, no LE, tenderness, no other conspicuous deformities noted NEUROLOGIC : Coherent, no facial asymmetry, no other gross focality Results & Data Results & Data Vital Signs (Past 12 Hours) Vital Signs Temp Pulse Pulse Resp BP BP Pulse Ox 01/23/24 00:50 74 17 98 01/23/24 00:40 76 14 98 01/23/24 00:31 71 16 139/88 98 01/23/24 00:31 71 16 98 01/23/24 00:30 71 14 98 01/23/24 00:20 86 11 L 99 01/23/24 00:10 72 8 L 98 01/23/24 00:00 80 12 143/100 H 100 01/23/24 00:00 80 12 100 01/22/24 23:50 81 17 99 01/22/24 23:40 84 12 99 01/22/24 23:31 75 18 99 01/22/24 23:31 75 18 148/96 H 99 01/22/24 23:30 76 16 99 01/22/24 23:20 89 21 96 01/22/24 23:10 76 26 H 99 01/22/24 23:00 71 12 135/94 99 01/22/24 23:00 71 12 99 01/22/24 22:50 82 15 98 01/22/24 22:40 89 21 97 01/22/24 22:30 75 13 100 01/22/24 22:30 75 13 130/88 100 01/22/24 22:20 74 16 100 01/22/24 22:10 75 12 98 01/22/24 22:03 81 15 119/74 99 01/22/24 22:03 81 15 99 01/22/24 22:00 81 15 98 01/22/24 21:55 93 H 11 L 01/22/24 21:30 78 14 99 01/22/24 21:20 99 H 12 99 01/22/24 21:17 87 14 116/90 98 01/22/24 21:16 90 20 98 01/22/24 21:16 90 20 116/90 98 01/22/24 21:10 94 H 15 01/22/24 21:10 88 01/22/24 21:09 86 17 01/22/24 20:51 36.1 C L 86 16 135/89 98 O2 Del Method 01/23/24 00:50 01/23/24 00:40 01/23/24 00:31 Room Air 01/23/24 00:31 01/23/24 00:30 01/23/24 00:20 01/23/24 00:10 01/23/24 00:00 01/23/24 00:00 01/22/24 23:50 01/22/24 23:40 01/22/24 23:31 01/22/24 23:31 01/22/24 23:30 01/22/24 23:20 01/22/24 23:10 01/22/24 23:00 01/22/24 23:00 01/22/24 22:50 01/22/24 22:40 01/22/24 22:30 01/22/24 22:30 01/22/24 22:20 01/22/24 22:10 01/22/24 22:03 01/22/24 22:03 01/22/24 22:00 01/22/24 21:55 01/22/24 21:30 01/22/24 21:20 01/22/24 21:17 Room Air 01/22/24 21:16 01/22/24 21:16 01/22/24 21:10 01/22/24 21:10 01/22/24 21:09 01/22/24 20:51 Room Air Laboratory Results Laboratory Results WBC 7.40 K/ul (4.8-10.8) 01/22/24 21:04 RBC 5.54 M/uL (4.20-5.40) H 01/22/24 21:04 Hgb 14.3 g/dl (12.0-16.0) 01/22/24 21:04 Hct 43.0 % (37.0-47.0) 01/22/24 21:04 MCV 77.6 fL (80.0-100.0) L 01/22/24 21:04 MCH 25.8 pg (25.0-34.0) 01/22/24 21:04 MCHC 33.3 g/dL (32.0-36.0) 01/22/24 21:04 RDW Std Deviation 41.7 fL (36.4-46.3) 01/22/24 21:04 RDW Coeff of Kd 15.0 % (11.5-14.5) H 01/22/24 21:04 Plt Count 324 K/uL (130-400) 01/22/24 21:04 MPV 11.8 fL (9.4-12.4) 01/22/24 21:04 Immature Gran % (Auto) 0.4 % 01/22/24 21:04 Neut % (Auto) 56.1 % 01/22/24 21:04 Lymph % (Auto) 28.8 % 01/22/24 21:04 [place] % (Auto) 13.0 % 01/22/24 21:04 Eos % (Auto) 0.5 % 01/22/24 21:04 Baso % (Auto) 1.2 % 01/22/24 21:04 Neut # (Auto) 4.15 K/uL (1.40-6.50) 01/22/24 21:04 Lymph # (Auto) 2.13 K/uL (1.20-3.40) 01/22/24 21:04 [place] # (Auto) 0.96 K/uL (0.11-0.59) H 01/22/24 21:04 Eos # (Auto) 0.04 K/uL (0.00-0.50) 01/22/24 21:04 Baso # (Auto) 0.09 K/uL (0.00-0.20) 01/22/24 21:04 Immature Gran # (Auto) 0.03 K/uL (0.01-0.20) 01/22/24 21:04 Sodium 138 mmol/L (136-145) 01/22/24 21:04 Potassium 3.2 mmol/L (3.5-5.1) L 01/22/24 21:04 Chloride 100 mmol/L (98-107) 01/22/24 21:04 Carbon Dioxide 26 mmol/L (21-32) 01/22/24 21:04 Anion Gap 12 (3-11) H 01/22/24 21:04 BUN 24 mg/dl (6-23) H 01/22/24 21:04 Creatinine 1.65 mg/dl (0.6-1.2) H 01/22/24 21:04 Est Cr Clr Drug Dosing 55.6 ml/min 01/22/24 21:04 Est GFR ( Amer) 43.9 ml/min 01/22/24 21:04 Est GFR (Non-Af Amer) 37.9 ml/min 01/22/24 21:04 BUN/Creatinine Ratio 14.5 (10-20) 01/22/24 21:04 Glucose 146 mg/dl (70-99(Fasting)) H 01/22/24 21:04 Calcium 10.0 mg/dl (8.6-10.3) 01/22/24 21:04 Magnesium 1.4 mg/dl (1.7-2.4) L 01/22/24 21:04 Total Bilirubin 0.5 mg/dl (0.2-1.0) 01/22/24 21:04 AST 17 U/L (13-39) 01/22/24 21:04 ALT 19 U/L (7-52) 01/22/24 21:04 Alkaline Phosphatase 36 U/L (34-104) 01/22/24 21:04 Troponin I High Sens 10.0 pg/ml (0-14) 01/22/24 21:04 Total Protein 7.8 gm/dl (6.0-8.3) 01/22/24 21:04 Albumin 4.4 gm/dl (3.4-5.0) 01/22/24 21:04 Globulin 3.4 gm/dl (2.5-4.0) 01/22/24 21:04 Albumin/Globulin Ratio 1.3 (0.9-2) 01/22/24 21:04 Lipase 52 U/L (11-82) 01/22/24 21:04 HCG, Qual Negative (Negative) 01/22/24 21:05 Urine Color Dark Yellow 01/22/24 21:44 Urine Appearance Turbid (Clear) A 01/22/24 21:44 Urine pH 5.0 (4.5-7.5) 01/22/24 21:44 Ur Specific [place] 1.029 (1.000-1.030) 01/22/24 21:44 Urine Protein 2+ (Negative) H 01/22/24 21:44 Urine Glucose (UA) Negative (Negative) 01/22/24 21:44 Urine Ketones 1+ (Negative) H 01/22/24 21:44 Urine Blood Negative (Negative) 01/22/24 21:44 Urine Nitrite Negative (Negative) 01/22/24 21:44 Urine Bilirubin 1+ (Negative) H 01/22/24 21:44 Urine Urobilinogen Negative (Negative) 01/22/24 21:44 Ur Leukocyte Esterase Trace (Negative) H 01/22/24 21:44 Urine WBC (Auto) 10-30 /hpf (0-5) H 01/22/24 21:44 Urine RBC (Auto) 0-4 /hpf (0-4) 01/22/24 21:44 U Hyaline Cast (Auto) 1-5 /lpf (0-5) 01/22/24 21:44 U Epithel Cells (Auto) >30 /lpf (0-5) H 01/22/24 21:44 Urine Bacteria (Auto) 4+ (Negative) H 01/22/24 21:44 Urine Yeast Not Reportable 01/22/24 21:44 Impressions Head CTA 01/22/24 21:27 Exam(s): CTA HEAD W/WO Contrast IV Amt: 118 cc opti 320 EXAM: CT Angiography Head Without and With Intravenous Contrast CLINICAL HISTORY: Reason for exam: dizzy. TECHNIQUE: Axial computed tomographic angiography images of the head without and with intravenous contrast. CTDI is 38.03 mGy and DLP is 1204.43 mGy-cm. Automated exposure control was utilized for the study. A dose lowering technique was utilized adhering to the principles of ALARA. MIP reconstructed images were created and reviewed. CONTRAST: Patient received 118 cc opti 320 of IV contrast COMPARISON: None. FINDINGS: VASCULATURE: Right internal carotid artery: No acute findings. Intracranial segment is patent with no significant stenosis. No aneurysm. Right anterior cerebral artery: Unremarkable. No occlusion or significant stenosis. No aneurysm. Right middle cerebral artery: Unremarkable. No occlusion or significant stenosis. No aneurysm. Right posterior cerebral artery: Unremarkable. No occlusion or significant stenosis. No aneurysm. Right vertebral artery: There is diffuse very small size/hypoplastic right vertebral artery with the distal aspect suboptimally visualized, difficult to exclude stenosis or near occlusion versus congenital small size. Left internal carotid artery: No acute findings. Intracranial segment is patent with no significant stenosis. No aneurysm. Left anterior cerebral artery: Unremarkable. No occlusion or significant stenosis. No aneurysm. Left middle cerebral artery: Unremarkable. No occlusion or significant stenosis. No aneurysm. Left posterior cerebral artery: Unremarkable. No occlusion or significant stenosis. No aneurysm. Left vertebral artery: There is a dominant left-sided vertebral artery otherwise patent and within normal limits. Basilar artery: Unremarkable. No occlusion or significant stenosis. No aneurysm. HEAD: Brain: No acute findings. No hemorrhage. No edema. Normal enhancement. Ventricles: Unremarkable. No ventriculomegaly. Bones/joints: No acute fracture. Soft tissues: Unremarkable. Sinuses: Unremarkable as visualized. No acute sinusitis. Mastoid air cells: Unremarkable as visualized. No mastoid effusion. 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 Otherwise negative CT angiogram of the brain with no focal stenosis, occlusion or aneurysm. Electronically signed by: Rose Mclean MD 01/22/24 22:29 PM Neck CTA 01/22/24 21:27 Exam(s): CTA NECK With Contrast IV Amt: 118 cc opti 320 EXAM: CT Angiography Neck With Intravenous Contrast CLINICAL HISTORY: Reason for exam: dizzy. TECHNIQUE: Routine carotid CT angiography protocol was performed with intravenous contrast. NASCET criteria using the distal ICAs for comparison were used for evaluation of stenoses. CTDI is 38.03 mGy and DLP is 1204.43 mGy-cm. Automated exposure control was utilized for the study. A dose lowering technique was utilized adhering to the principles of ALARA. MIP reconstructed images were created and reviewed. CONTRAST: Patient received 118 cc opti 320 of IV contrast COMPARISON: None. FINDINGS: VASCULATURE: Right common carotid artery: Unremarkable. No occlusion or significant stenosis. No dissection. Right internal carotid artery: Unremarkable. Extracranial segment is patent with no occlusion or significant stenosis. No dissection. Right external carotid artery: Unremarkable. No occlusion. Right vertebral artery: Diffuse very small size of the right vertebral artery otherwise normal preserved patency. No occlusion or significant stenosis. No dissection. Left common carotid artery: Unremarkable. No occlusion or significant stenosis. No dissection. Left internal carotid artery: Unremarkable. Extracranial segment is patent with no occlusion or significant stenosis. No dissection. Left external carotid artery: Unremarkable. No occlusion. Left vertebral artery: Dominant left-sided vertebral artery otherwise normal left vertebral artery. No occlusion or significant stenosis. No dissection. NECK: Bones/joints: Unremarkable. No acute fracture. Soft tissues: Unremarkable. Lung apices: Clear. CAROTID STENOSIS REFERENCE USING NASCET CRITERIA: % ICA stenosis = (1 - narrowest ICA diameter/diameter of distal cervical ICA) x 100. Mild - <50% stenosis. Moderate - 50-69% stenosis. Severe - 70-94% stenosis. Near occlusion - 95-99% stenosis. Occluded - 100% stenosis. IMPRESSION: Negative CT angiogram of the neck with no focal stenosis, occlusion or dissection seen. Electronically signed by: Rose Mclean MD 01/22/24 22:23 PM Diagnostic Findings EKG as per my interpretation : Rate 85, NSR, normal axis, no ischemia
[2024-01-23] MEDS ORDERED: MECLIZINE HCL 25 MG TAB PO PRN (01:33)
[2024-01-23] MEDS ORDERED: PROMETHAZINE HCL 12.5 MG in SODIUM CHLORIDE 0.9% 50 ML IV PRN (01:33)
[2024-01-23] MEDS ORDERED: PHARMACIST DISCHARGE MED REC CONSULT PRN (01:33)
[2024-01-23] MEDS ORDERED: LORazepam 0.5 MG TAB PO PRN (01:33)
--- NOTE | 2024-01-23 02:44 | Magnetic Resonance Report ---
Exam(s): MRI HEAD Without Contrast EXAM: MR Head Without Intravenous Contrast CLINICAL HISTORY: Reason for exam: vertigo. TECHNIQUE: Magnetic resonance images of the head/brain without intravenous contrast in multiple planes. COMPARISON: CT brain 03/01/2023. FINDINGS: Brain: Few, small scattered, foci of increased signal within the deep white matter most compatible with mild microangiopathic disease versus sequela of migraine headaches. No hemorrhage. No restricted diffusion abnormality to suggest acute stroke. Ventricles: Unremarkable. No ventriculomegaly. Bones/joints: Unremarkable. No acute fracture. Sinuses: Unremarkable as visualized. No acute sinusitis. Mastoid air cells: Unremarkable as visualized. No mastoid effusion. Orbits: Unremarkable as visualized. IMPRESSION: Mild microangiopathic white matter changes versus sequela of chronic headaches. Otherwise no acute stroke or intracranial hemorrhage. No intracranial space-occupying lesion. Electronically signed by: Rose Mclean MD 01/23/24 02:43 AM
--- NOTE | 2024-01-23 02:46 | Communication Note ---
Date of Service: January 23, [address] Valiente about the patient whom has had vertiginous complaints for the past 4 days. CTA shows R vert likely ends in PICA with a dominant ve rtebral artery. It sounds as though this is likely peripheral vertigo--however given CTA report would be reasonable to obtain MRI brain (this can be with and without which would also screen for cerebellopontine angle lesions). If MRI brain is unremarkable for ischemia, no need for further stroke evaluation and should consider follow up with physical therapy or balance center for further evaluation. If evidence of ischemia would recommend further discussion with Neurology regarding additional recommendations
[2024-01-23] MEDS ORDERED: GLUCAGON FOR INJ 1 MG VIAL SQ PRN (02:47)
[2024-01-23] MEDS ORDERED: GLUCOSE 40% GEL 15 GM TUBE PO PRN (02:47)
[2024-01-23] MEDS ORDERED: GLUCOSE 10 TAB/TUBE PO PRN (02:47)
[2024-01-23] MEDS ORDERED: DEXTROSE 50% 50 ML SYRINGE IV PRN (02:47)
[2024-01-23] MEDS ORDERED: ACETAMINOPHEN 325 MG TAB PO PRN (02:47)
[2024-01-23] MEDS ORDERED: CARBOHYDRATES FOR HYPOGLYCEMIA PO PRN (02:47)
[2024-01-23] MEDS: INSULIN ASPART PER UNIT CHARGE SC SCH (03:02)
[2024-01-23] MEDS: NSS + 20MEQ KCL 20 MEQ/1,000 ML BAG IV ONE (03:29)
[2024-01-23] MEDS: HEPARIN SOD 5,000 UNIT/0.5 ML VIAL SQ SCH (05:18)
--- NOTE | 2024-01-23 07:28 | XRay Report ---
XR chest 1V portable CLINICAL HISTORY: Chest pain, nonspecific COMPARISON STUDY: Chest radiograph and chest CT April or 2023. FINDINGS: Lung volumes are normal. Lungs are clear. There is no pneumothorax or pleural effusion. Car diac size is normal. Mediastinal contours are normal. There is no evidence for pulmonary edema. IMPRESSION: No acute cardiopulmonary findings. ACT 112: Negative or not required by law. Electronically signed by: Augustus Herrera M.D. 01/23/2024 7:27 AM
[2024-01-23 07:58] LABS: Basophils # (auto) 0.09 K/uL (0.00-0.20); Basophils % (auto) 1.1 %; Eosinophils # (auto) 0.13 K/uL (0.00-0.50); Eosinophils % (auto) 1.6 %; Hematocrit (blood only) 38.6 % (37.0-47.0); Hemoglobin 12.5 g/dl (12.0-16.0); Immature Granulocytes # (auto) 0.02 K/uL (0.01-0.20); Immature Granulocytes % (auto) 0.2 %; Lymphocytes % (auto) 38.6 %; Mean Corpuscular Hemoglobin 25.9 pg (25.0-34.0); Mean Corpuscular Hgb Conc 32.4 g/dL (32.0-36.0); Mean Corpuscular Volume 79.9 fL (80.0-100.0); Mean Platelet Volume 11.4 fL (9.4-12.4); Monocytes # (auto) 0.92 K/uL (0.11-0.59); Monocytes % (auto) 11.1 %; Neutrophils # (auto) 3.92 K/uL (1.40-6.50); Neutrophils % (auto) 47.4 %; Platelet Count 267 K/uL (130-400); RDW Coefficient of Variation 15.3 % (11.5-14.5); RDW Standard Deviation 44.4 fL (36.4-46.3); Red Blood Count 4.83 M/uL (4.20-5.40); White Blood Count 8.28 K/ul (4.8-10.8)
[2024-01-23 08:10] LABS: BUN Creatinine Ratio 22.9 (10-20); Calcium 8.5 mg/dl (8.6-10.3); Chol HDL Ratio 3.5 (0-5); Creatinine Clr Calc Pharmacy 111.8 ml/min; Est GFR (African American) 100.8 ml/min; Potassium 3.5 mmol/L (3.5-5.1)
--- OUTSIDE RECORDS SUMMARY | 2024-01-23 08:22 | External Medical Summary | Summary of Care ---
Author Name Unknown Organization [facility] Address [address] [facility] [place] [address] Phone [phone] Care Team Providers Care Implementation Lead Name Role Phone Heather Wiggins PA-C Primary Care Provide r Reason for Visit * Reason Onset Date Comments Medication Refill 12/25/2023 Encounter Details Date Type Department Care Team (Late st Contact Info) Description 12/25/2023 Refill Family Practice [facility] [address] [facility] [place] [address] Heather Wiggins PA-C [address] [facility] [address] Type 2 diabetes mellitus with hemoglobin A1c goal of less than 7.0% (HCC) Allergies No known active allergiesdocumented as of this encounter (statuses as of 01/15/2024) Medications Medication Sig Dispensed Refills Start Date End Date Status OneTouch Verio w/Device KitIndications:Ty pe 2 diabetes mellitus with hemoglobin A1c goal of less than 7.0% (HCC) Use up to 4 times a day E11.9 1 Kit 0 03/22/2021 Active OneTouch Verio In Vitro Strip (Glucose Blood)Indications :Type 2 diabetes mellitus with hemoglobin A1c goal of less than 7.0% (HCC) Use up to 4 times a day E11.9 100 Strip 11 03/22/2021 Active OneTouch Delica Lancets 33GIndications:Ty pe 2 diabetes mellitus with hemoglobin A1c goal of less than 7.0% (HCC) Use up to 4 times a day E11.9 100 Each 4 03/22/2021 Active BD Pen Needle Jolene 2nd Gen 32G X 4 MM (Insulin Pen Needle) Use once daily with Victoza 100 Each 3 05/11/2022 Active metFORMIN HCl ER 500 MG Oral Tablet Extended Release 24 Hour (Glucophage XR)Indications:Ty pe 2 diabetes mellitus with hemoglobin A1c goal of less than 7.0% ([facility]) TAKE 4 TABLETS BY MOUTH DAILY WITH DINNER. 360 Tablet 1 01/11/2023 Active Additional Information Patient taking differently: 1,000 mg, Indications: 2 tablets in am, Reported on 03/21/2023 amLODIPine Besylate 5 MG Oral Tablet (Norvasc)Indicati ons:HTN, goal below 130/80 Take 1 Tablet by mouth in the morning. 90 Tablet 3 01/20/2023 Active hydroCHLOROthiazi de 25 MG Oral Tablet (Hydrodiuril) TAKE 1 TABLET BY MOUTH EVERY DAY 90 Tablet 3 02/02/2023 Active Metoprolol Succinate ER 50 MG Oral Tablet Extended Release 24 Hour (toPROL XL)Indications:HT N, goal below 130/80 Take 1 tablet by mouth every day at the same time as the 100 mg tab 90 Tablet 3 02/07/2023 Active Additional Information Patient taking differently:, Take 1 tablet by mouth every day at the same time as the 100 mg tab,Indications: in am, Reported on 03/21/2023 Lisinopril 40 MG Oral TabletIndications :Type 2 diabetes mellitus with hemoglobin A1c goal of less than 7.0% ([facility]),Microalbumi maude due to type 2 diabetes mellitus ([facility]),HTN, goal below 130/80 Take 1 Tablet by mouth in the morning. 90 Tablet 1 02/07/2023 Active Albuterol Sulfate HFA 108 (90 Base) MCG/ACT Inhalation Aerosol Solution INHALE 2 PUFFS BY MOUTH EVERY 4 HOURS NEEDED FOR WHEEZING 18 g 1 02/07/2023 Active Escitalopram Oxalate 10 MG Oral Tablet (Lexapro)Indicati ons:ALEX (generalized anxiety disorder) Take 1 Tablet by mouth in the morning. 30 Tablet 5 07/31/2023 Active hydrALAZINE HCl 25 MG Oral Tablet (Apresoline)Indic ations:HTN, goal below 130/80 Take 1 Tablet by mouth in the morning and 1 Tablet at noon and 1 Tablet before bedtime. 90 Tablet 5 07/31/2023 Active Victoza 18 MG/3ML Subcutaneous Solution Pen-injector (Liraglutide)Lenka cations:Type 2 diabetes mellitus with hemoglobin A1c goal of less than 7.0% (HCC) Inject 1.8mg subcutaneously daily 3 mL 5 12/26/2023 Active Metoprolol Succinate ER 100 MG Oral Tablet Extended Release 24 Hour (toPROL XL)Indications:HT N, goal below 130/80 TAKE 1 TABLET BY MOUTH DAILY WITH 50 MG FOR A TOTAL OF 150 MG DAILY. 90 Tablet 3 07/13/2022 01/02/20 24 Discontinu ed(Refill) Victoza 18 MG/3ML Subcutaneous Solution Pen-injector (Liraglutide)Lenka cations:Type 2 diabetes mellitus with hemoglobin A1c goal of less than 7.0% (HCC) INJECT 0.6MG SUBCUTANEOUSLY DAILY FOR 1 WEEK THEN INCREASE TO 1.2MG DAILY 3 mL 1 07/31/2023 12/25/19 24 Discontinu ed(Refill) documented as of this encounter (statuses as of 01/15/2024) Active Problems Problem Noted Date Diagnosed Date Class 2 severe obesity due t o excess calories with serious comorbidity and body mass index (BMI) of 38.0 to 38.9 in adult 12/13/2023 Type 2 diabetes mellitus wit h diabetic mononeuropathy, without long-term current use of insulin 12/13/2023 Food insecurity 12/26/2022 Overview: Per [facility] Protocol Major depressive disorder, single episode, moder ate 11/18/2022 AMA (advanced maternal age) multigravida 35+, unspecified trimester 07/25/2022 Chronic kidney disease (CKD) 07/25/2022 Overview: 07/25/2022: CKD Stage 1 Most recent Hb: 13.8 on 03/17/21 Most recent Cr: 0.9 on 12/28/21 Most recent BUN: 13 on 12/28/21 Most recent GFR: 80 on 12/28/21 History of delivery, currently 07/25/2022 Overview: Get more history Severe obesity with body mas s index (BMI) of 35.0 to 39.9 with serious comorbidity 08/20/2019 History of colon polyps 04/09/2019 Overview: 03/31-csope, sig tics, xle P- Repeat exam in 3 years given multiple polyps, young age--:- Persistent proteinuria 02/08/2019 Dyslipidemia, goal LDL below 100 01/07/2018 Moderate depressive disorder 12/04/2017 Alcohol ingestion, more than 4 drinks/day on alcohol screening 12/04/2017 Pap smear for cervical cancer screening 05/15/20 17 Overview: Neg 12/29 Skin tags, multiple acquired 12/02/2016 Non compliance w medication regimen 07/26/2016 Abnormal facial hair 12/22/2015 History of gestational diabetes 09/07/2015 Type 2 diabetes mellitus wit h hemoglobin A1c goal of less than 7.0% 08/30/2015 Overview: HbA1c 03/17/21: 9.7% HTN, goal below 130/80 08/30/2015 Tobacco use disorder 08/30/2015 documented as of this encounter (statuses as of 01/15/2024) Resolved Problems Problem Noted Date Diagnosed Date Resolved Date Microalbuminuria due to type 2 diabetes mellitus 01/07/2018 11/18/2022 IUD (intrauterine device) in place 05/15/2017 03/24/2021 Overview: 02/2015 Obesity, Class I, BMI 30-34.9 02/11/2016 11/18/2022 Depression 08/30/2015 01/03/2018 documented as of this encounter (statuses as of 01/15/2024) Immunizations Name Administration Dates Next Due Hepatitis B, 20+ yrs 08/10/2017,10/26/2016,12/22 Pneumococcal Conjugate Vacci ne, 20-valent ([id number]) 07/31/2023 Pneumococcal Polysaccharide PPV23 (Pneumovax) 01/03/2018 Seasonal Influenza, PF, 6 M & above, IM , (FluLaval or Fluzone) 07/31/2023,09/14/2020,08/20/2019,01/01,08/10/2017 Seasonal Influenza, Quadriva lent, No Preserve, IM 10/26/2016,08/28/2015 TDAP (age 10 and older)(Boostrix) 05/15/2017 documented as of this encounter Social History Tobacco Use Types Packs/Day Years Used Date Smoking Tobacco: Every Day Cigarettes 0.5 21 Smokeless Tobacco: Never Alcohol Use Standard Drinks/Week Comments Yes 0 (1 standard drink = 0.6 oz pur e alcohol) occ AUDIT-C Answer Date Recorded Q1: How often do you have a drink containing alc ohol? 2-3 times a week 03/24/2021 Q2: How many drinks containi ng alcohol do you have on a typical day when you are drinking? Not asked 03/24/2021 Q3: How often do you have si x or more drinks on one occasion? Not asked 03/24/2021 PHQ-2 Answer Date Recorded PHQ Adult Total Score 0 06/02/2022 Hunger Vital Sign Answer Date Recorded Within the past 12 months, y ou worried that your food would run out before you got the money to buy more. Sometimes true Within the past 12 months, t he food you bought just didn't last and you didn't have money to get more. Sometimes true 06/2023 Sex and Gender Information Value Date Recorded Sex Assigned at Female 03/28/2019 12:58 PM EDT Gender Identity Female 03/28/2019 12:58 PM EDT Sexual Orientation Straight 03/28/2019 12 :58 PM EDT Job Start Date Occupation Industry Not on file Not on file Not on file documented as of this encounter Miscellaneous Notes * Telephone Encounter - Rosana Feliciano LPN - 01/15/2024 3:56 PM EST My g message sent to patient. * Telephone Encounter - Ginger Flower RN - 12/27/2023 9:03 AM EST Left message for pt to call back. Please address below. * Telephone Encounter - Heather Wiggins PA-C - 12/26/2023 1:59 PM EST Signed Prescriptions: Disp Refills Victoza 18 MG/3ML Subcutaneous Solution Pe*3 mL 5 Sig: Inject 1.8mg subcutaneously dailyAuthorizing Provider: HEATHER WIGGINS * Telephone Encounter - Heather Wiggins PA-C - 12/26/2023 1:59 PM EST Dose increased to 1.8mg daily because last A1C was up. Please let patient know. * Telephone Encounter - Aline Lui MED ASSIST - 12/25/2023 1:16 PM EST Pending Prescriptions: Disp Refills Victoza 18 MG/3ML Subcutaneous Solution Pe*3 mL 1 Sig: INJECT 0.6MG SUBCUTANEOUSLY DAILY FOR 1 WEEK THEN INCREASE TO 1.2MG DAILY * Telephone Encounter - Aline Lui MED ASSIST - 12/25/2023 1:15 PM EST Did you pend patient's preferred pharmacy and medication before forwarding?yes Pharmacy: [id number] [address] [place] [address] Pending Prescriptions: Disp Refills Victoza 18 MG/3ML Subcutaneous Solution P*3 mL 1 Sig: INJECT 0.6MG SUBCUTANEOUSLY DAILY FOR 1 WEEK THEN INCREASE TO 1.2MG DAILY Last Visit: 12/13/2023 (in office), Visit date not found (telemedicine) Next Visit: Visit date not found If no future appointments scheduled, and last appointment is greater than a year ago, please schedule patient for a follow-up appointment Last date the medication was ordered: 07/31/2023 Is this request for a controlled substance?No Urine Drug Screen:No results found for this or any previous visit. Patient Phone Numbers Labs: Lab Results Component Value Date/Time CREAT 0.7 12/19/2023 02:37 PM CREAT 0.67 12/01/2023 12:00 AM CREAT 0.8 05/19/2020 12:43 PM POTASSIUM 4.2 12/19/2023 02:37 PM POTASSIUM 3.4 (L) 12/01/2023 12:00 AM POTASSIUM 3.8 05/19/2020 12:43 PM TSH 1.07 04/19/2023 09:03 AM TSH 1.01 05/19/2020 12:43 PM LDLCALC 117 06/02/2022 01:12 PM LDLCALC 71 03/28/2019 01:28 PM LDLDIRECT 89 06/19/2018 12:10 PM ALT 19 12/19/2023 02:37 PM ALT 21 01/15/2020 11:06 AM HGBA1C 7.3 (H) 12/19/2023 02:37 PM HGBA1C 7.8 (H) 05/19/2020 12:43 PM * Telephone Encounter - Estefany Julian OSA - 12/25/2023 12:54 PM EST Did you pend patient's preferred pharmacy and medication before forwarding?yes Pharmacy: [id number] [address] [facility] Pending Prescriptions: Disp Refills Victoza 18 MG/3ML Subcutaneous Solution P*3 mL 1 Sig: INJECT 0.6MG SUBCUTANEOUSLY DAILY FOR 1 WEEK THEN INCREASE TO 1.2MG DAILY Last Visit: 12/13/2023 (in office), Visit date not found (telemedicine) Next Visit: Visit date not found If no future appointments scheduled, and last appointment is greater than a year ago, please schedule patient for a follow-up appointment Last date the medication was ordered: 07/31/23 Is this request for a controlled substance?No Urine Drug Screen:No results found for this or any previous visit. Patient Phone Numbers Labs: Lab Results Component Value Date/Time CREAT 0.7 12/19/2023 02:37 PM CREAT 0.67 12/01/2023 12:00 AM CREAT 0.8 05/19/2020 12:43 PM POTASSIUM 4.2 12/19/2023 02:37 PM POTASSIUM 3.4 (L) 12/01/2023 12:00 AM POTASSIUM 3.8 05/19/2020 12:43 PM TSH 1.07 04/19/2023 09:03 AM TSH 1.01 05/19/2020 12:43 PM LDLCALC 117 06/02/2022 01:12 PM LDLCALC 71 03/28/2019 01:28 PM LDLDIRECT 89 06/19/2018 12:10 PM ALT 19 12/19/2023 02:37 PM ALT 21 01/15/2020 11:06 AM HGBA1C 7.3 (H) 12/19/2023 02:37 PM HGBA1C 7.8 (H) 05/19/2020 12:43 PM documented in this encounter Plan of Treatment Upcoming Encounters Date Type Department Care Team (Late st Contact Info) Description 01/24/2024 2:00 PM EDT Office Visit Gynecology/Obstetrics [facility] [address] [place] [address] Linda Chanel PA-C [address] [place] [address] 04/05/2024 1:30 PM EDT Office Visit Cardiology, [facility] [address] [place] [address] Kelsey Curry CRNP [address] [place] [address] Scheduled Procedures Name Priority Associated Diagnoses Date/Ti me COLONOSCOPY FLEXIBLE PROXIMA L DIAGNOSTIC Recall History of colonic polyps Health Maintenance Due Date Last Done Comments DISCUSS TOBACCO CESSATION (REFER TO SMARTSET #5572) 1981 HPV/Co-Test 2011 Diabetic Foot Exam 03/17/2022 03/17/2021, 0 05/19/2020, 03/28/2019, Additional history exists Mammogram 05/30/2023 05/30/2022 Depression Screening 06/02/2023 06/02/2022 COVID-19 Vaccine (2022- season) 2023 B-12 12/21/2023 12/21/2022, 09/13, 12/28/2021, Additional history exists Cervical Cancer Screening 03/24/2024 Pap Smear 03/24/2024 03/24/2021, 06/14, 07/06/2017, Additional history exists Diabetic Eye Exam 12/13/2024 12/13/2023, , 10/17/2019, Additional history exists GFR 12/19/2024 12/19/2023, 11/13, 11/17/2023, Additional history exists COLONOSCOPY-EVERY 3 YRS AGES 18-100 05/06/2025 05/06/2022, 05/06/2022, 04/09/2019, Additional history exists DTaP,Tdap,and Td Vaccines (2 - Td or Tdap) 05/15/2027 05/15/2017 Lipid Panel 06/02/2027 06/02/2022, 05/0 03/2021, 03/28/2019, Additional history exists Hepatitis B Completed 08/10/2017, 10/13, 12/22/2015 COLONOSCOPY-ANNUAL AGES 18-100 Discontinued 05/06/2022, 05/06/2022, 04/09/2019, Additional history exists Albumin/Creatinine Ratio Discontinued 022, 03/17/2021, 08/20/2019, Additional history exists Influenza Vaccine (FLU shot) Completed 07/31/2023, 09/14/2020, 08/20/2019, Additional history exists Pneumococcal Vaccine: Pediatrics (0 to 5 Years) and At-Risk Patients (6 to 64 Years) Completed 07/31/2023, 01/03/2018 GARDASIL-HPV IMMUNIZATION SERIES Aged Out No longer eligible based on patient's age to complete this topic MENINGOCOCCAL (MENACTRA/MENVEO) Aged Out No longer eligible based on patient's age to complete this topic documented as of this encounter Medical Devices Not on filedocumented as of this encounter Visit Diagnoses Diagnosis Type 2 diabetes mellitus with hemoglobin A1c goal of less than 7.0% (HCC) documented in this encounter Advance Directives Latest Code Status on File Code Status Date Activated Date Inactivated Comments Full Code 03/24/2023 8:08 AM 03/24/2023 1:26 PM This order reflects the patients wishes and were consensually agreed upon. Question Answer Comments Discussion of Advance Directives occurred with: Patient Care Teams Implementation Lead Relationship Specialty Start Date End Date Heather Wiggins PA-C [address] [place] [address] PCP - General Physician Hand Filer Balance Wheel 11/08/23 documented as of this encounter
--- OUTSIDE RECORDS SUMMARY | 2024-01-23 08:23 | External Medical Summary | Summary of Care ---
Author Name Unknown Organization [facility] Address [address] [facility] [address] Phone [phone] Care Team Providers Care Data Entry Coordinator Name Role Phone Heather Wiggins PA-C Primary Care Provide r Reason for Visit * Reason Onset Date Comments Medication Refill 12/25/2023 Encounter Details Date Type Department Care Team (Late st Contact Info) Description 12/25/2023 Refill Family Practice [facility] [address] [facility] [place] [address] [facility] [address] Type 2 diabetes mellitus with hemoglobin A1c goal of less than 7.0% (HCC) Allergies No known active allergiesdocumented as of this encounter (statuses as of 12/27/2023) Medications Medication Sig Dispensed Refills Start Date [...] with Victoza 100 Each 3 05/11/2022 Active Metoprolol Succinate ER 100 MG Oral Tablet Extended Release 24 Hour (toPROL XL)Indications:HT N, goal below 130/80 TAKE 1 TABLET BY MOUTH DAILY WITH 50 MG FOR A TOTAL OF 150 MG DAILY. 90 Tablet 3 07/13/2022 Active Additional Information Patient taking differently: Indications: in am, Reported on 03/21/2023 metFORMIN HCl ER 500 MG Oral Tablet Extended Release 24 Hour (Glucophage XR)Indications:Ty pe 2 diabetes mellitus with hemoglobin A1c goal of less than 7.0% ([facility]) TAKE 4 TABLETS BY MOUTH DAILY WITH DINNER. 360 Tablet 1 01/11/2023 Active Additional Information Patient taking differently: 1,000 mg, Indications: 2 tablets in am, Reported on 03/21/2023 amLODIPine Besylate 5 MG Oral Tablet (Norvasc)Eseti ons:HTN, goal below 130/80 Take 1 Tablet [...] hemoglobin A1c goal of less than 7.0% ([facility]),Microalbumi maude due to type 2 diabetes mellitus (HCC),HTN, goal below 130/80 Take 1 Tablet by [...] subcutaneously daily 3 mL 5 12/26/2023 Active Victoza 18 MG/3ML Subcutaneous Solution Pen-injector (Liraglutide)Lenka cations:Type 2 diabetes mellitus with hemoglobin A1c goal of less than 7.0% (HCC) INJECT 0.6MG SUBCUTANEOUSLY DAILY FOR 1 WEEK THEN INCREASE TO 1.2MG DAILY 3 mL 1 07/31/2023 12/25/19 24 Discontinu ed(Refill) documented as of this encounter (statuses as of 12/27/2023) Active Problems Problem Noted Date Diagnosed Date Class 2 severe obesity due t o excess calories with serious comorbidity and body mass index (BMI) of 38.0 to 38.9 in adult 12/13/2023 Type 2 diabetes mellitus wit h diabetic mononeuropathy, without long-term current use of insulin 12/13/2023 Food insecurity 12/26/2022 Overview: Per [facility] Protocol Major depressive disorder, single [...] as of this encounter (statuses as of 12/27/2023) Resolved Problems Problem Noted Date Diagnosed Date Resolved Date Microalbuminuria due to type 2 diabetes mellitus 01/07/2018 11/18/2022 IUD (intrauterine device) in place 05/15/2017 03/24/2021 Overview: 02/2015 Obesity, Class I, BMI 30-34.9 02/11/2016 11/18/2022 Depression 08/30/2015 01/03/2018 documented as of this encounter (statuses as of 12/27/2023) Immunizations Name Administration Dates Next Due Hepatitis B, 20+ yrs 08/10/2017,10/26/2016,12/22 Pneumococcal Conjugate Vacci ne, 20-valent ([id number]) 07/31/2023 Pneumococcal Polysaccharide PPV23 (Pneumovax) 01/03/2018 Seasonal [...] encounter Miscellaneous Notes * Telephone Encounter - Heather Wiggins PA-C [...] know. * Telephone Encounter - Aline Lui Morphy - 12/25/2023 1:16 PM EST Pending Prescriptions: Disp Refills Victoza 18 MG/3ML Subcutaneous Solution Pe*3 mL 1 Sig: INJECT 0.6MG SUBCUTANEOUSLY DAILY FOR 1 WEEK THEN INCREASE TO 1.2MG DAILY * Telephone Encounter - Aline Lui MED ASSIST - 12/25/2023 1:15 PM EST Did you pend patient's preferred pharmacy and medication before forwarding?yes Pharmacy: [id number] [address] [place] [address] Pending Prescriptions: Disp Refills Victoza 18 MG/3ML [...] and medication before forwarding?yes Pharmacy: [id number] [address] [place] [address] Pending Prescriptions: Disp Refills Victoza 18 MG/3ML [...] or any previous visit. Patient Phone Numbers [facility] [phone] Labs: Lab Results Component Value Date/Time CREAT [...] 01/24/2024 2:00 PM EDT Office Visit Gynecology/Obstetrics [facility] [address] [place] [address] Linda Chanel PA-C [address] [place] [address] 04/05/2024 1:30 PM EDT Office Visit Cardiology, [facility] [address] [place] [address] Kelsey Curry CRNP [address] [place] [address] Scheduled Procedures Name Priority Associated Diagnoses Date/Ti me COLONOSCOPY FLEXIBLE PROXIMA L DIAGNOSTIC Recall History of colonic polyps Health Maintenance Due Date Last Done Comments DISCUSS TOBACCO CESSATION (REFER TO SMARTSET #2249) 1981 COVID-19 Vaccine (#1) 01/13/1982 HPV/Co-Test 2011 Diabetic Foot Exam 03/17/2022 03/17/2021, 0 05/19/2020, 03/28/2019, Additional history exists Mammogram 05/30/2023 05/30/2022 Depression Screening 06/02/2023 06/02/2022 B-12 12/21/2023 12/21/2022, 09/13, 12/28/2021, Additional history [...] Tdap) 05/15/2027 05/15/2017 Lipid Panel 06/02/2027 06/02/2022, 0503/2021, 03/28/2019, Additional history exists Hepatitis B Completed [...] Advance Directives occurred with: Patient Care Teams Data Entry Coordinator Relationship Specialty Start Date End Date Heather Wiggins PA-C [address] [place] [address] PCP - General Physician Skidder Lever Operator 11/08/23 documented as of this encounter
--- OUTSIDE RECORDS SUMMARY | 2024-01-23 08:23 | External Medical Summary ---
Author Name Unknown Address Unknown Organization K01:LABORATORY [address] [facility] [address] Laboratory Report Ordering Provider Test Date Status LUIS MASON 12/28/2023 15:12:39 Final hCG can serve as a screening assay for . However, early may not give a positive hCG test result. In addition, some non- women may have a hCG result slightly higher than the reference limit. Careful interpretation of the hCG with clinical history is required to determine whether the patient may be .
Postmenopausal women have higher hCG than premenopausal women. The reference interval for non- premenopausal women is <= 1 mIU/mL, and for postmenopausal women is <= 7 mIU/mL. Observation Date Value Abnormality Reference (Units ) Status Choriogonadotropin.intact +Beta subunit [Units/volume] in Serum or Plasma 12/28/2023 15:12:39 <0.6 <=1.0 (mIU/mL) Final Performing Location LAB[facility] - [facility] [address] [facility] [address]
--- OUTSIDE RECORDS SUMMARY | 2024-01-23 08:23 | External Medical Summary | Summary of Care ---
Author Name Unknown Organization [facility] Address [address] [facility] [place] [address] Phone [phone] Care Team Providers Care Nurses Medical Assistants Phlebotomists Name Role Phone Heather Wiggins PA-C Primary Care Provide r Reason for Visit * Reason Onset Date Comments Medication Refill 12/25/2023 Encounter Details Date Type Department Care Team (Late st Contact Info) Description 12/25/2023 Refill Family Practice [facility] [address] [facility] [place] [address] Heather [facility]ins [facility]C [facility] [address] Type 2 diabetes mellitus with hemoglobin A1c [...] hemoglobin A1c goal of less than 7.0% ([facility]) TAKE 4 TABLETS BY MOUTH [...] hemoglobin A1c goal of less than 7.0% ([facility]),Microalbumi maude due to type 2 [...] yrs 08/10/2017,10/26/2016,12/22 Pneumococcal Conjugate Vacci ne, 20-valent ([id number]) 07/31/2023 Pneumococcal Polysaccharide PPV23 (Pneumovax) 01/03/2018 Seasonal [...] encounter Miscellaneous Notes * Telephone Encounter - Ginger Flower RN [...] know. * Telephone Encounter - Aline Lui Conisus - 12/25/2023 1:16 PM EST Pending Prescriptions: Disp Refills Victoza 18 MG/3ML Subcutaneous Solution Pe*3 mL 1 Sig: INJECT 0.6MG SUBCUTANEOUSLY DAILY FOR 1 WEEK THEN INCREASE TO 1.2MG DAILY * Telephone Encounter - Aline Lui Conisus - 12/25/2023 1:15 PM EST Did you pend patient's preferred pharmacy and medication before forwarding?yes Pharmacy: [id number] [facility] Pending Prescriptions: Disp Refills Victoza 18 MG/3ML [...] pharmacy and medication before forwarding?yes Pharmacy: E [id number] [address] [place] [address] Pending Prescriptions: Disp Refills Victoza 18 MG/3ML [...] 01/24/2024 2:00 PM EDT Office Visit Gynecology/Obstetrics [facility] [address] [place] [address] Linda Chanel PA-C [address] [place] [address] 04/05/2024 1:30 PM EDT Office Visit Cardiology, [facility] [address] [place] [address] Kelsey Curry CRNP [address] [place] [address] Scheduled Procedures Name Priority Associated Diagnoses Date/Ti me COLONOSCOPY FLEXIBLE PROXIMA L DIAGNOSTIC Recall History of colonic polyps Health Maintenance Due Date Last Done Comments DISCUSS TOBACCO CESSATION (REFER TO SMARTSET #9490) 1981 COVID-19 Vaccine (#1) 01/13/1982 HPV/Co-Test 2011 [...] 04/09/2019, Additional history exists Albumin/Creatinine Ratio Discontinued 09/28/2 022, 03/17/2021, 08/20/2019, Additional history exists Influenza [...] Advance Directives occurred with: Patient Care Teams Nurses Medical Assistants Phlebotomists Relationship Specialty Start Date End Date Heather Wiggins PA-C [address] [place] [address] PCP - General Physician Radiology Special Procedure Tech 11/08/23 documented as of this encounter
--- OUTSIDE RECORDS SUMMARY | 2024-01-23 08:23 | External Medical Summary | Summary of Care ---
Author Name Unknown Organization [facility] Address [address] [place] [address] Phone [phone] Care Team Providers Care Cloth Shrinking Tester Name Role Phone Heather Wiggins PA-C Primary Care Provide r Reason for Visit * Reason Comments Outpatient Testing Encounter Details Date Type Department Care Team (Late st Contact Info) Description 12/28/2023 3:20 PM EST Laboratory Laboratory [facility] [address] [place] [id number] [facility] [address] [place] [address] Right ovarian without intrauterine Allergies No known active allergiesdocumented as of this encounter (statuses as of 12/28/2023) Medications Medication Sig Dispensed Refills Start Date End Date Status OneTouch Verio w/Device KitIndications:Typ e 2 diabetes mellitus with hemoglobin A1c goal of less than 7.0% (HCC) Use up to 4 times a day E11.9 1 Kit 0 03/22/2021 Active OneTouch Verio In Vitro Strip (Glucose Blood)Indications: Type 2 diabetes mellitus with hemoglobin A1c goal of less than 7.0% (HCC) Use up to 4 times a day E11.9 100 Strip 11 03/22/2021 Active OneTouch Delica Lancets 33GIndications:Typ e 2 diabetes mellitus with hemoglobin A1c goal of less than 7.0% (HCC) Use up to 4 times a day E11.9 100 Each 4 03/22/2021 Active BD Pen Needle Jolene 2nd Gen 32G X 4 MM (Insulin Pen Needle) Use once daily with Victoza 100 Each 3 05/11/2022 Active Metoprolol Succinate ER 100 MG Oral Tablet Extended Release 24 Hour (toPROL XL)Indications:HTN , goal below 130/80 TAKE 1 TABLET BY MOUTH DAILY WITH 50 MG FOR A TOTAL OF 150 MG DAILY. 90 Tablet 3 07/13/2022 Active Additional Information Patient taking differently: Indications: in am, Reported on 03/21/2023 metFORMIN HCl ER 500 MG Oral Tablet Extended Release 24 Hour (Glucophage XR)Indications:Typ e 2 diabetes mellitus with hemoglobin A1c goal of less than 7.0% ([facility]) TAKE 4 TABLETS BY MOUTH DAILY WITH DINNER. 360 Tablet 1 01/11/2023 Active Additional Information Patient taking differently: 1,000 mg, Indications: 2 tablets in am, Reported on 03/21/2023 amLODIPine Besylate 5 MG Oral Tablet (Norvasc)Esetio ns:HTN, goal below 130/80 Take 1 Tablet by mouth in the morning. 90 Tablet 3 01/20/2023 Active hydroCHLOROthiazid e 25 MG Oral Tablet (Hydrodiuril) TAKE 1 TABLET BY MOUTH EVERY DAY 90 Tablet 3 02/02/2023 Active Metoprolol Succinate ER 50 MG Oral Tablet Extended Release 24 Hour (toPROL XL)Indications:HTN , goal below 130/80 Take 1 tablet by mouth every day at the same time as the 100 mg tab 90 Tablet 3 02/07/2023 Active Additional Information Patient taking differently:, Take 1 tablet by mouth every day at the same time as the 100 mg tab,Indications: in am, Reported on 03/21/2023 Lisinopril 40 MG Oral TabletIndications: Type 2 diabetes mellitus with hemoglobin A1c goal of less than 7.0% (HCC),Microalbumin uria due to type 2 diabetes mellitus (HCC),HTN, goal below 130/80 Take 1 Tablet by mouth in the morning. 90 Tablet 1 02/07/2023 Active Albuterol Sulfate HFA 108 (90 Base) MCG/ACT Inhalation Aerosol Solution INHALE 2 PUFFS BY MOUTH EVERY 4 HOURS NEEDED FOR WHEEZING 18 g 1 02/07/2023 Active Escitalopram Oxalate 10 MG Oral Tablet (Lexapro)Esetio ns:ALEX (generalized anxiety disorder) Take 1 Tablet by mouth in the morning. 30 Tablet 5 07/31/2023 Active hydrALAZINE HCl 25 MG Oral Tablet (Apresoline)Indica tions:HTN, goal below 130/80 Take 1 Tablet by mouth in the morning and 1 Tablet at noon and 1 Tablet before bedtime. 90 Tablet 07/31/2023 Active Victoza 18 MG/3ML Subcutaneous Solution Pen-injector (Liraglutide)Indic ations:Type 2 diabetes mellitus with hemoglobin A1c goal of less than 7.0% (HCC) Inject 1.8mg subcutaneously daily 3 mL 5 12/26/2023 Active documented as of this encounter (statuses as of 12/28/2023) Active Problems Problem Noted Date Diagnosed Date Class 2 severe obesity due t o excess calories with serious comorbidity and body mass index (BMI) of 38.0 to 38.9 in adult 12/13/2023 Type 2 diabetes mellitus wit h diabetic mononeuropathy, without long-term current use of insulin 12/13/2023 Food insecurity 12/26/2022 Overview: Per [facility] Protocol Major depressive disorder, single [...] as of this encounter (statuses as of 12/28/2023) Resolved Problems Problem Noted Date Diagnosed Date Resolved Date Microalbuminuria due to type 2 diabetes mellitus 01/07/2018 11/18/2022 IUD (intrauterine device) in place 05/15/2017 03/24/2021 Overview: 02/2015 Obesity, Class I, BMI 30-34.9 02/11/2016 11/18/2022 Depression 08/30/2015 01/03/2018 documented as of this encounter (statuses as of 12/28/2023) Immunizations Name Administration Dates Next Due Hepatitis B, 20+ yrs 08/10/2017,10/26/2016,12/22 Pneumococcal Conjugate Vacci ne, 20-valent ([id number]) 07/31/2023 Pneumococcal Polysaccharide PPV23 (Pneumovax) 01/03/2018 Seasonal [...] on file documented as of this encounter Plan of Treatment Upcoming Encounters Date Type Department Care Team (Late st Contact Info) Description 01/24/2024 2:00 PM EDT Office Visit Gynecology/Obstetrics [facility] [address] [place] [address] Linda Chanel PA-C [address] [place] [address] 04/05/2024 1:30 PM EDT Office Visit Cardiology, [facility] [address] [place] [address] Kelsey Curry CRNP [address] [place] [address] Pending Results Name Type Priority Associated Diagnoses Date /Time BETA-HCG, QUANTITATIVE Lab Routine Right ovarian without intrauterine 12/28/2023 3:12 PM EST Scheduled Procedures Name Priority Associated Diagnoses Date/Ti me COLONOSCOPY FLEXIBLE PROXIMA L DIAGNOSTIC Recall History of colonic polyps Health Maintenance Due Date Last Done Comments DISCUSS TOBACCO CESSATION (REFER TO SMARTSET #9647) 1981 COVID-19 Vaccine (#1) 01/13/1982 HPV/Co-Test 2011 [...] Tdap) 05/15/2027 05/15/2017 Lipid Panel 06/02/2027 06/02/2022, 03/2021, 03/28/2019, Additional history exists Hepatitis B [...] as of this encounter Visit Diagnoses Diagnosis Right ovarian without intrauterine documented in this encounter Advance Directives Latest Code Status on File Code Status Date Activated Date Inactivated Comments Full Code 03/24/2023 8:08 AM 03/24/2023 1:26 PM This order reflects the patients wishes and were consensually agreed upon. Question Answer Comments Discussion of Advance Directives occurred with: Patient Care Teams Cloth Shrinking Tester Relationship Specialty Start Date End Date Heather Wiggins PA-C [address] [place] [address] PCP - General Physician Photographer Finish 11/08/23 documented as of this encounter
--- OUTSIDE RECORDS SUMMARY | 2024-01-23 08:23 | External Medical Summary | Summary of Care ---
Author Name Unknown Organization [facility] Address [address] [facility] [address] Phone [phone] Care Team Providers Care Ice Cream Man Name Role Phone Heather Wiggins PA-C Primary Care Provide r Reason for Visit * Reason Onset Date Comments Medication Refill 01/02/2024 Encounter Details Date Type Department Care Team (Late st Contact Info) Description 01/02/2024 Refill Family Practice [facility] [address] [facility] [place] [address] [facility] [address] HTN, goal below 130/80 Allergies No known active allergiesdocumented as of this encounter (statuses as of 01/02/2024) Medications Medication Sig Dispensed Refills Start Date [...] A1c goal of less than 7.0% (HCC) TAKE 4 TABLETS BY MOUTH DAILY WITH [...] hemoglobin A1c goal of less than 7.0% (HCC),Microalbumi maude due to type 2 diabetes mellitus [...] XL)Indications:HT N, goal below 130/80 Take 1 Tablet by mouth in the morning. TAKE 1 TABLET BY MOUTH DAILY WITH 50 MG FOR A TOTAL OF 150 MG DAILY. Strength: 100 mg. 90 Tablet 3 01/02/2024 Active Metoprolol Succinate ER 100 MG Oral Tablet Extended Release 24 Hour (toPROL XL)Indications:HT N, goal below 130/80 TAKE 1 TABLET BY MOUTH DAILY WITH 50 MG FOR A TOTAL OF 150 MG DAILY. 90 Tablet 3 07/13/2022 01/02/20 24 Discontinu ed(Refill) documented as of this encounter (statuses as of 01/02/2024) Active Problems Problem Noted Date Diagnosed Date Class 2 severe obesity due t o excess calories with serious comorbidity and body mass index (BMI) of 38.0 to 38.9 in adult 12/13/2023 Type 2 diabetes mellitus wit h diabetic mononeuropathy, without long-term current use of insulin 12/13/2023 Food insecurity 12/26/2022 Overview: Per [facility] Protocol Major depressive disorder, single episode, [...] as of this encounter (statuses as of 01/02/2024) Resolved Problems Problem Noted Date Diagnosed Date Resolved Date Microalbuminuria due to type 2 diabetes mellitus 01/07/2018 11/18/2022 IUD (intrauterine device) in place 05/15/2017 03/24/2021 Overview: 02/2015 Obesity, Class I, BMI 30-34.9 02/11/2016 11/18/2022 Depression 08/30/2015 01/03/2018 documented as of this encounter (statuses as of 01/02/2024) Immunizations Name Administration Dates Next Due Hepatitis B, 20+ yrs 08/10/2017,10/26/2016,12/22 Pneumococcal Conjugate Vacci ne, 20-valent ([id number]) 07/31/2023 Pneumococcal Polysaccharide PPV23 (Pneumovax) 01/03/2018 Seasonal [...] encounter Miscellaneous Notes * Telephone Encounter - Dolores Johnson PA-C - 01/02/2024 1:46 PM ESTSigned Prescriptions: Disp Refills Metoprolol Succinate ER 100 MG Oral Tablet*90 Tab*3 Sig: Take 1 Tablet by mouth in the morning. TAKE 1 TABLET BY MOUTH DAILY WITH 50 MG FOR A TOTAL OF 150 MG DAILY. Strength: 100 mg. Authorizing Provider: DOLORES JOHNSON * Telephone Encounter - Aline Lui MED ASSIST - 01/02/2024 1:24 PM EST Pending Prescriptions: Disp Refills Metoprolol Succinate ER 100 MG Oral Tablet*90 Tab*3 * Telephone Encounter - Aline Lui MED ASSIST - 01/02/2024 1:23 PM EST Did you pend patient's preferred pharmacy and medication before forwarding?yes Pharmacy: [id number] [facility] Pending Prescriptions: Disp Refills Metoprolol Succinate ER 100 MG Oral Table*90 Tab*3 Last Visit: 12/13/2023 (in office), Visit date not found (telemedicine) Next Visit: Visit date not found If no future appointments scheduled, and last appointment is greater than a year ago, please schedule patient for a follow-up appointment Last date the medication was ordered: 07/13/2022 Is this request for a controlled substance?No Urine Drug Screen:No results found for this or any previous visit. Patient Phone Numbers [employer] [phone] Labs: Lab Results Component Value Date/Time CREAT [...] Telephone Encounter - Estefany Julian OSA - 01/02/2024 1:01 PM EST Did you pend patient's preferred pharmacy and medication before forwarding?yes Pharmacy: [id number] [id number] [facility] Pending Prescriptions: Disp Refills Metoprolol Succinate ER 100 MG Oral Table*90 Tab*3 Last Visit: 12/13/2023 (in office), Visit date not found (telemedicine) Next Visit: Visit date not found If no future appointments scheduled, and last appointment is greater than a year ago, please schedule patient for a follow-up appointment Last date the medication was ordered: 07/13/22 Is this request for a controlled substance?No Urine Drug Screen:No results found for this or any previous visit. Patient Phone Numbers [employer] [phone] Labs: Lab Results Component Value Date/Time CREAT [...] 01/24/2024 2:00 PM EDT Office Visit Gynecology/Obstetrics [facility] [address] [place] [address] Linda Chanel PA-C [address] [place] [address] 04/05/2024 1:30 PM EDT Office Visit Cardiology, [facility] [address] [place] [address] Kelsey Curry CRNP [address] [place] [address] Scheduled Procedures Name Priority Associated Diagnoses Date/Ti me COLONOSCOPY FLEXIBLE PROXIMA L DIAGNOSTIC Recall History of colonic polyps Health Maintenance Due Date Last Done Comments DISCUSS TOBACCO CESSATION (REFER TO SMARTSET #3291) 1981 HPV/Co-Test 2011 Diabetic Foot Exam 03/17/2022 03/17/2021, 0 05/19/2020, 03/28/2019, Additional history exists Mammogram 05/30/2023 05/30/2022 Depression Screening 06/02/2023 06/02/2022 COVID-19 Vaccine ( season) 2023 B-12 12/21/2023 12/21/2022, 09/13, 12/28/2021, [...] as of this encounter Visit Diagnoses Diagnosis HTN, goal below 130/80 Unspecified essential hypertension documented in this encounter Advance Directives Latest Code Status on File Code Status Date Activated Date Inactivated Comments Full Code 03/24/2023 8:08 AM 03/24/2023 1:26 PM This order reflects the patients wishes and were consensually agreed upon. Question Answer Comments Discussion of Advance Directives occurred with: Patient Care Teams Ice Cream Man Relationship Specialty Start Date End Date Heather Wiggins PA-C [address] [place] [address] PCP - General Physician Plate And Weld Inspector 11/08/23 documented as of this encounter
--- OUTSIDE RECORDS SUMMARY | 2024-01-23 08:23 | External Medical Summary | Summary of Care ---
Author Name Unknown Organization [facility] Address [address] [facility] [place] [address] Phone [phone] Care Team Providers Care Betting Agency Counter Clerk Name Role Phone Heather Wiggins PA-C Primary Care Provide r Encounter Details Date Type Department Care Team (Late st Contact Info) Description 12/14/2023 Telephone Gynecology/Obstetrics [facility] [address] [place] [address] Miguel Ángel Connolly MD [address] [place] [address] Allergies No known active allergiesdocumented as of this encounter (statuses as of 12/26/2023) Medications Medication Sig Dispensed Refills Start Date [...] hemoglobin A1c goal of less than 7.0% ([facility]) TAKE 4 TABLETS BY MOUTH DAILY WITH DINNER. 360 Tablet 1 01/11/2023 Active Additional Information Patient taking differently: 1,000 mg, Indications: 2 tablets in am, Reported on 03/21/2023 amLODIPine Besylate 5 MG Oral Tablet (Norvasc)Indicatio ns:HTN, goal below 130/80 Take 1 Tablet [...] hemoglobin A1c goal of less than 7.0% ([facility]),Microalbumin uria due to type 2 diabetes mellitus (HCC),HTN, goal below 130/80 Take 1 Tablet by mouth in the morning. 90 Tablet 1 02/07/2023 Active Albuterol Sulfate HFA 108 (90 Base) MCG/ACT Inhalation Aerosol Solution INHALE 2 PUFFS BY MOUTH EVERY 4 HOURS NEEDED FOR WHEEZING 18 g 1 02/07/2023 Active Escitalopram Oxalate 10 MG Oral Tablet (Lexapro)Indicatio ns:ALEX (generalized anxiety disorder) Take 1 Tablet by mouth in the morning. 30 Tablet 5 07/31/2023 Active Victoza 18 MG/3ML Subcutaneous Solution Pen-injector (Liraglutide)Indic ations:Type 2 diabetes mellitus with hemoglobin A1c goal of less than 7.0% (HCC) INJECT 0.6MG SUBCUTANEOUSLY DAILY FOR 1 WEEK THEN INCREASE TO 1.2MG DAILY 3 mL 1 07/31/2023 Active hydrALAZINE HCl 25 MG Oral Tablet (Apresoline)Indica tions:HTN, goal below 130/80 Take 1 Tablet by mouth in the morning and 1 Tablet at noon and 1 Tablet before bedtime. 90 Tablet 5 07/31/2023 Active Doxycycline Hyclate 100 MG Oral CapsuleIndications :Bronchitis, complicated Take 1 Capsule by mouth in the morning and 1 Capsule before bedtime. Do all this for 10 days. Until gone.. 20 Capsule 0 12/13/2023 documented as of this encounter (statuses as of 12/26/2023) Active Problems Problem Noted Date Diagnosed Date Class 2 severe obesity due t o excess calories with serious comorbidity and body mass index (BMI) of 38.0 to 38.9 in adult 12/13/2023 Type 2 diabetes mellitus wit h diabetic mononeuropathy, without long-term current use of insulin 12/13/2023 Food insecurity 12/26/2022 Overview: Per [facility] Protocol Major depressive disorder, single [...] as of this encounter (statuses as of 12/26/2023) Resolved Problems Problem Noted Date Diagnosed Date Resolved Date Microalbuminuria due to type 2 diabetes mellitus 01/07/2018 11/18/2022 IUD (intrauterine device) in place 05/15/2017 03/24/2021 Overview: 02/2015 Obesity, Class I, BMI 30-34.9 02/11/2016 11/18/2022 Depression 08/30/2015 01/03/2018 documented as of this encounter (statuses as of 12/26/2023) Immunizations Name Administration Dates Next Due Hepatitis B, 20+ yrs 08/10/2017,10/26/2016,12/22 Pneumococcal Conjugate Vacci ne, 20-valent ([id number]) 07/31/2023 Pneumococcal Polysaccharide PPV23 (Pneumovax) 01/03/2018 Seasonal [...] encounter Miscellaneous Notes * Telephone Encounter - Janett Rose RN - 12/14/2023 9:08 AM EST Patient returned call and made aware she verbalized understanding. * Telephone Encounter - Eli Haddad LPN - 12/14/2023 8:53 AM EST left message for patient to call office * Telephone Encounter - Miguel Ángel Connolly MD - 12/14/2023 8:38 AM EST Recommend f/u BHCG weekly until it turns 0. Last one was 21 on 12/06. She may have another one this week. Thank you documented in this encounter Plan of Treatment Upcoming Encounters Date Type Department Care Team (Late st Contact Info) Description 01/24/2024 2:00 PM EDT Office Visit Gynecology/Obstetrics [facility] [address] [place] [address] Linda Chanel PA-C [address] [place] [address] 04/05/2024 1:30 PM EDT Office Visit Cardiology, [facility] [address] [place] [address] Kelsey Curry CRNP [address] [place] [address] Scheduled Procedures Name Priority Associated Diagnoses Date/Ti me COLONOSCOPY FLEXIBLE PROXIMA L DIAGNOSTIC Recall History of colonic polyps Health Maintenance Due Date Last Done Comments DISCUSS TOBACCO CESSATION (REFER TO SMARTSET #3291) 1981 COVID-19 Vaccine (#1) 01/13/1982 HPV/Co-Test 2011 [...] Not on filedocumented as of this encounter Advance Directives Latest Code Status on File Code Status Date Activated Date Inactivated Comments Full Code 03/24/2023 8:08 AM 03/24/2023 1:26 PM This order reflects the patients wishes and were consensually agreed upon. Question Answer Comments Discussion of Advance Directives occurred with: Patient Care Teams Betting Agency Counter Clerk Relationship Specialty Start Date End Date Heather Wiggins PA-C [address] [place] [address] PCP - General Physician General Forecaster 11/08/23 documented as of this encounter
--- OUTSIDE RECORDS SUMMARY | 2024-01-23 08:23 | External Medical Summary | Summary of Care ---
Author Name Unknown Organization [facility] Address [address] [facility] [place] [address] Phone [phone] Care Team Providers Care Die Designer Name Role Phone Heather Wiggins PA-C Primary Care Provide r Reason for Visit * Reason Onset Date Comments Medication Refill 12/25/2023 Encounter Details Date Type Department Care Team (Late st Contact Info) Description 12/25/2023 Refill Family Practice [facility] [address] [facility] [place] [address] Heather [facility]ins [facility]C [facility] [address] Type 2 diabetes mellitus with hemoglobin A1c [...] goal of less than 7.0% ([facility]) TAKE 4 TABLETS BY MOUTH DAILY WITH [...] goal of less than 7.0% ([facility]),Microalbumi maude due to type 2 diabetes mellitus [...] yrs 08/10/2017,10/26/2016,12/22 Pneumococcal Conjugate Vacci ne, 20-valent ([id number]) 07/31/2023 Pneumococcal Polysaccharide PPV23 (Pneumovax) 01/03/2018 Seasonal [...] know. * Telephone Encounter - Aline Lui [employer] - 12/25/2023 1:16 PM EST Pending Prescriptions: Disp Refills Victoza 18 MG/3ML Subcutaneous Solution Pe*3 mL 1 Sig: INJECT 0.6MG SUBCUTANEOUSLY DAILY FOR 1 WEEK THEN INCREASE TO 1.2MG DAILY * Telephone Encounter - Aline Lui MED ASSIST - 12/25/2023 1:15 PM EST Did you pend patient's preferred pharmacy and medication before forwarding?yes Pharmacy: [id number] [address] [place] [address] Pending Prescriptions: Disp Refills Victoza 18 MG/3ML [...] and medication before forwarding?yes Pharmacy: [id number] [address] [place] [address] Pending Prescriptions: Disp Refills Victoza 18 MG/3ML [...] or any previous visit. Patient Phone Numbers [employer] [phone] Labs: Lab Results Component Value Date/Time CREAT [...] 01/24/2024 2:00 PM EDT Office Visit Gynecology/Obstetrics [facility] [address] [place] [address] Linda Chanel PA-C [address] [place] [address] 04/05/2024 1:30 PM EDT Office Visit Cardiology, [facility] [address] [place] [address] Kelsey Curry CRNP [address] [place] [address] Scheduled Procedures Name Priority Associated Diagnoses Date/Ti me COLONOSCOPY FLEXIBLE PROXIMA L DIAGNOSTIC Recall History of colonic polyps Health Maintenance Due Date Last Done Comments DISCUSS TOBACCO CESSATION (REFER TO SMARTSET #8361) 1980 COVID-19 Vaccine (#1) 01/13/1982 HPV/Co-Test 2011 [...] Advance Directives occurred with: Patient Care Teams Die Designer Relationship Specialty Start Date End Date Heather Wiggins PA-C [address] [place] [address] PCP - General Physician Mosaic Technician 11/08/23 documented as of this encounter
--- OUTSIDE RECORDS SUMMARY | 2024-01-23 08:24 | External Medical Summary | Summary of Care ---
Author Name Unknown Organization [facility] [address] [facility] [address] Phone [phone] Care Team Providers Care Wood Floor Refinisher Name Role Phone Heather Wiggins PA-C Primary Care Provide r Reason for Visit * Reason Onset Date Comments Information 12/21/2023 DM eye Encounter Details Date Type Department Care Team (Late st Contact Info) Description 12/21/2023 Telephone Family Practice [facility] [address] [facility] [place] [address] [facility] [address] Information (DM eye) Allergies No known active allergiesdocumented as of this encounter (statuses as of 12/21/2023) Medications Medication Sig Dispensed Refills Start Date [...] 03/21/2023 amLODIPine Besylate 5 MG Oral Tablet (Norvasc)Martha ns:HTN, goal below 130/80 Take 1 Tablet [...] Active Escitalopram Oxalate 10 MG Oral Tablet (Lexapro)Martha ns:ALEX (generalized anxiety disorder) Take 1 Tablet [...] days. Until gone.. 20 Capsule 0 12/13/2023 Active documented as of this encounter (statuses as of 12/21/2023) Active Problems Problem Noted Date Diagnosed Date Class 2 severe obesity due t o excess calories with serious comorbidity and body mass index (BMI) of 38.0 to 38.9 in adult 12/13/2023 Type 2 diabetes mellitus wit h diabetic mononeuropathy, without long-term current use of insulin 12/13/2023 Food insecurity 12/26/2022 Overview: Per [facility] Protocol Major depressive disorder, single episode, [...] as of this encounter (statuses as of 12/21/2023) Resolved Problems Problem Noted Date Diagnosed Date Resolved Date Microalbuminuria due to type 2 diabetes mellitus 01/07/2018 11/18/2022 IUD (intrauterine device) in place 05/15/2017 03/24/2021 Overview: 02/2015 Obesity, Class I, BMI 30-34.9 02/11/2016 11/18/2022 Depression 08/30/2015 01/03/2018 documented as of this encounter (statuses as of 12/21/2023) Immunizations Name Administration Dates Next Due Hepatitis B, 20+ yrs 08/10/2017,10/26/2016,12/22 Pneumococcal Conjugate Vacci ne, 20-valent ([id number]) 07/31/2023 Pneumococcal Polysaccharide PPV23 (Pneumovax) 01/03/2018 Seasonal [...] encounter Miscellaneous Notes * Telephone Encounter - Brittney Velarde LPN - 12/21/2023 1:36 PM EST Patient with a positive Diabetic Retinopathy scan. There is mild retinopathy in right eye Outreach action taken: Left Message and MyChart message sent Brittney Velarde LPN documented in this encounter Plan of Treatment Upcoming Encounters Date Type Department Care Team (Late st Contact Info) Description 01/24/2024 2:00 PM EDT Office Visit Gynecology/Obstetrics Veronica Ward [address] [place] [address] Linda Chanel PA-C [address] [place] [address] 04/05/2024 1:30 PM EDT Office Visit Cardiology, [facility] [address] [place] [address] Kelsey Curry CRNP [address] [place] [address] Scheduled Procedures Name Priority Associated Diagnoses Date/Ti [...] Advance Directives occurred with: Patient Care Teams Wood Floor Refinisher Relationship Specialty Start Date End Date Heather Wiggins PA-C [address] [place] [address] PCP - General Physician Facilities Planner 11/08/23 documented as of this encounter
--- OUTSIDE RECORDS SUMMARY | 2024-01-23 08:24 | External Medical Summary | Summary of Care ---
Author Name Unknown Organization [facility] Address [address] [place] [address] Phone [phone] Care Team Providers Care Die Cutter Name Role Phone Heather Wiggins PA-C Primary Care Provide r Encounter Details Date Type Department Care Team (Late st Contact Info) Description 12/13/2023 9:00 AM EST Office Visit [facility] 200 [facility] [place] [address] Heather Wiggins PA-C [address] [facility] [address] Bronchitis, complicated*; Ovarian without intrauterine , unspecified laterality; Type 2 diabetes mellitus with hemoglobin A1c goal of less than 7.0% (HCC); Type 2 diabetes mellitus with diabetic mononeuropathy, without long-term current use of insulin ([facility]); HTN, goal below 130/80; ALEX (generalized anxiety disorder); Major depressive disorder, single episode, moderate ([facility]); Body mass index 36.0-36.9, adult Allergies No known active allergiesdocumented as of this encounter (statuses as of 12/14/2023) Medications Medication Sig Dispensed Refills Start Date [...] day E11.9 100 Strip 11 03/22/2021 Active OneManuel Barcenas Lancets 33GIndications:Typ e 2 diabetes mellitus with [...] days. Until gone.. 20 Capsule 0 12/13/2023 4 Active documented as of this encounter (statuses as of 12/14/2023) Active Problems Problem Noted Date Diagnosed Date Class 2 severe obesity due t o excess calories with serious comorbidity and body mass index (BMI) of 38.0 to 38.9 in adult 12/13/2023 Type 2 diabetes mellitus wit h diabetic mononeuropathy, without long-term current use of insulin 12/13/2023 Food insecurity 12/26/2022 Overview: Per [email or web address] Protocol Major depressive disorder, single [...] as of this encounter (statuses as of 12/14/2023) Resolved Problems Problem Noted Date Diagnosed Date Resolved Date Microalbuminuria due to type 2 diabetes mellitus 01/07/2018 11/18/2022 IUD (intrauterine device) in place 05/15/2017 03/24/2021 Overview: 02/2015 Obesity, Class I, BMI 30-34.9 02/11/2016 11/18/2022 Depression 08/30/2015 01/03/2018 documented as of this encounter (statuses as of 12/14/2023) Immunizations Name Administration Dates Next Due Hepatitis B, 20+ yrs 08/10/2017,10/26/2016,12/22 Pneumococcal Conjugate Vacci ne, 20-valent ([id number]) 07/31/2023 Pneumococcal Polysaccharide PPV23 (Pneumovax) 01/03/2018 Seasonal [...] on file documented as of this encounter Last Filed Vital Signs Vital Sign Reading Time Taken Comments Blood Pressure 124/78 12/13/2023 8:56 AM EST Pulse 84 12/13/2023 8:56 AM EST Temperature 35.9 C (96.6 F) 12/13/2023 8:56 AM ES T Respiratory Rate 18 12/13/2023 8:56 AM EST Oxygen Saturation - - Inhaled Oxygen Concentration - - Weight 104.3 kg (230 lb) 12/13/2023 8:56 AM EST Height 170.2 cm (5' 7.01") 12/13/2023 8:56 AM ES T Body Mass Index 36.01 12/13/2023 8:56 AM EST documented in this encounter Progress Notes * Heather Wiggins PA-C - 12/13/2023 8:18 PM EST Subjective Gauri Meehan is a 43 year old female that presents for No chief complaint on file. 43 y/o female presents for routine follow-up. Has recently been following with sponge buffer for ectopic . Was in the ER twice, given two methotrexate shots. Is still having some bleeding and cramping. Last HCG draw was last Monday, level was at 21. She hasn't heard back from OB to see when she needs a recheck. Otherwise is doing well. BP is stabilized. She is taking all her medications as prescribed. Is due to have routine labs drawn. She needs her appt with nephrology and cardiology rescheduled for her BP. She can reschedule these today. Having cough, congestion x 3 weeks. Has not been on any medications for it. Denies fevers, chills, chest pain, SOB,nausea, vomiting, diarrhea. Routine -labs ordered -DM eye exam done today -COVId booster recommended Allergies and medications reviewed and updated today. Objective BP 124/78 | Pulse 84 | Temp 35.9 C (96.6 F) (Tympanic) | Resp 18 | Ht 1.702 m (5' 7.01") | Wt 104.3 kg (230 lb) | LMP (LMP Unknown) | BMI 36.01 kg/m | BSA 2.22 m Body mass index is 36.01 kg/m. BP Readings from Last 3 Encounters: 12/13/23 124/78 11/16/23 136/96 07/31/23 144/96 Wt Readings from Last 3 Encounters: 12/13/23 104.3 kg (230 lb) 11/16/23 105.2 kg (232 lb) 07/31/23 103.8 kg (228 lb 12.8 oz) Physical Exam Vitals and nursing note reviewed. Constitutional: General: She is not in acute distress. Appearance: Normal appearance. HENT: Head: Normocephalic and atraumatic. Right Ear: Tympanic membrane and ear canal normal. Left Ear: Tympanic membrane and ear canal normal. Nose: Congestion present. Comments: Erythematous, edematous mucosa with thick discharge. Mouth/Throat: Mouth: Mucous membranes are moist. Pharynx: No oropharyngeal exudate or posterior oropharyngeal erythema. Eyes: General: No scleral icterus. Extraocular Movements: Extraocular movements intact. Conjunctiva/sclera: Conjunctivae normal. Pupils: Pupils are equal, round, and reactive to light. Cardiovascular: Rate and Rhythm: Normal rate and regular rhythm. Heart sounds: Normal heart sounds. No murmur heard. No friction rub. No gallop. Pulmonary: Breath sounds: No stridor. Wheezing and rhonchi present. No rales. Abdominal: General: Bowel sounds are normal. Palpations: Abdomen is soft. Tenderness: There is no abdominal tenderness. There is no right CVA tenderness or left CVA tenderness. Musculoskeletal: General: No swelling, tenderness or deformity. Normal range of motion. Cervical back: Neck supple. No muscular tenderness. Right lower leg: No edema. Left lower leg: No edema. Lymphadenopathy: Cervical: No cervical adenopathy. Skin: General: Skin is warm and dry. Capillary Refill: Capillary refill takes less than 2 seconds. Findings: No rash. Neurological: General: No focal deficit present. Mental Status: She is alert and oriented to person, place, and time. Cranial Nerves: No cranial nerve deficit. Gait: Gait normal. Deep Tendon Reflexes: Reflexes normal. Psychiatric: Mood and Affect: Mood normal. Behavior: Behavior normal. Assessment and plan 1. Bronchitis, complicated -doxycycline as prescribed - Doxycycline Hyclate 100 MG Oral Capsule; Take 1 Capsule by mouth in the morning and 1 Capsule before bedtime. Do all this for 10 days. Until gone.. Dispense: 20 Capsule; Refill: 0 2. Ovarian without intrauterine , unspecified laterality -will reach out to RADAR TESTER to see when they want the next HCG to be drawn 3. Type 2 diabetes mellitus with hemoglobin A1c goal of less than 7.0% ([facility]) -labs as ordered, DM eye done today -continue current med regimen for the time being - TELEMEDICINE DIABETIC EYE - HEMOGLOBIN A1C; Future - COMPREHENSIVE METABOLIC PANEL; Future 4. Type 2 diabetes mellitus with diabetic mononeuropathy, without long-term current use of insulin (HCC) 5. HTN, goal below 130/80 -good control today -reschedule cardio and nephro - COMPREHENSIVE METABOLIC PANEL; Future 6. ALXE (generalized anxiety disorder) 7. Major depressive disorder, single episode, moderate (HCC) 8. Body mass index 36.0-36.9, adult Follow up Follow-up: Return in about 6 months (around 06/12/2024). | Check-out note: Routine follow-up Nephrology reschedule Cardio reschedule Total time today including reviewing chart before the visit, pertinent labs, imaging reports, face to face time, and documentation time was 30 minutes. The above was discussed and understanding was expressed. Heather Wiggins PA-C documented in this encounter Nursing Notes * Rosana Feliciano LPN - 12/13/2023 8:55 AM EST Gauri Fisher Meehan presents for annual physical exam. Medications & HM reviewed. Patient having some pain in her right ankle. She also reports sweating really bad at night. documented in this encounter Plan of Treatment Upcoming Encounters Date Type Department Care Team (Late st Contact Info) Description 12/18/2023 1:00 PM EST Office Visit Nephrology, [facility] [address] [place] [address] Saurav Fu MD [address] [place] [address] 01/24/2024 2:00 PM EDT Office Visit Gynecology/Obstetrics [facility] [address] [place] [address] Linda Chanel PA-C [address] [place] [address] 04/05/2024 1:30 PM EDT Office Visit Cardiology, [facility] [place] [address] [place] [address] Kelsey Curry CRNP [address] [place] [address] Scheduled Orders Name Type Priority Associated Diagnoses Orde r Schedule HEMOGLOBIN A1C Lab Routine Type 2 diabetes mellitus with hemoglobin A1c goal of less than 7.0% (HCC) Expected: 12/13/2023 (Approximate), Expires: 12/12/2024 COMPREHENSIVE METABOLIC PANEL Lab Routine HTN, goal below 130/80 Type 2 diabetes mellitus with hemoglobin A1c goal of less than 7.0% (HCC) Expected: 12/13/2023 (Approximate), Expires: 12/12/2024 Scheduled Procedures Name Priority Associated Diagnoses Date/Ti me COLONOSCOPY FLEXIBLE PROXIMA L DIAGNOSTIC Recall History of colonic polyps Health Maintenance Due Date Last Done Comments DISCUSS TOBACCO CESSATION (REFER TO SMARTSET #8570) 1981 COVID-19 Vaccine (#1) 01/13/1982 HPV/Co-Test 2011 Diabetic Foot Exam 03/17/2022 03/17/2021, 0 05/19/2020, 03/28/2019, Additional history exists Diabetic Eye Exam 04/06/2022 04/06/2021, , 11/01/2018 Mammogram 05/30/2023 05/30/2022 Depression Screening 06/02/2023 06/02/2022 B-12 12/21/2023 12/21/2022, 09/13, 12/28/2021, Additional history exists Cervical Cancer Screening 03/24/2024 Pap Smear 03/24/2024 03/24/2021, 06/14, 07/06/2017, Additional history exists GFR 12/01/2024 12/01/2023, 03/2024, 11/14/2023, Additional history exists COLONOSCOPY-EVERY 3 YRS AGES 18-100 05/06/2025 05/06/2022, 05/06/2022, 04/09/2019, Additional history exists DTaP,Tdap,and Td Vaccines (2 - Td or Tdap) 05/15/2027 05/15/2017 Lipid Panel 06/02/2027 06/02/2022, 0 03/2021, 03/28/2019, Additional history exists Hepatitis B [...] as of this encounter Visit Diagnoses Diagnosis Bronchitis, complicated- Primary Bronchitis, not specified as acute or chronic Ovarian without intrauterine , unspecified laterality Type 2 diabetes mellitus with hemoglobin A1c goal of less than 7.0% (HCC) Type 2 diabetes mellitus with diabetic mononeuropathy, without long-term current use of insulin (HCC) HTN, goal below 130/80 Unspecified essential hypertension ALEX (generalized anxiety disorder) Generalized anxiety disorder Major depressive disorder, single episode, moderate (HCC) Major depressive disorder, single episode, moderate Body mass index 36.0-36.9, adult Body Mass Index 36.0-36.9, adult documented in this encounter Advance Directives Latest Code Status on File Code Status Date Activated Date Inactivated Comments Full Code 03/24/2023 8:08 AM 03/24/2023 1:26 PM This order reflects the patients wishes and were consensually agreed upon. Question Answer Comments Discussion of Advance Directives occurred with: Patient Care Teams Die Cutter Relationship Specialty Start Date End Date Heather Wiggins PA-C [address] [place] [address] PCP - General Physician Seconds Handler 11/08/23 documented as of this encounter
--- OUTSIDE RECORDS SUMMARY | 2024-01-23 08:24 | External Medical Summary ---
Author Name Unknown Address Unknown Organization [id number]:[facility] - [address] [facility] [address] Laboratory Report Ordering Provider Test Date Status MAY PAREDES 12/19/2023 14:37:37 Final Observation Date Value Abnormality Reference (Units ) Status HbA1C 12/19/2023 14:37:37 7.3 Above high normal 4. 0-5.6 (%) Final The use of HbA1c to monitor glycemic status is based on normal hemoglobin and HbA composition. This test should not be used in patients with abnormal hemoglobin that affects the half life of the red blood cell or the in vivo glycation rates. Glucose, estimated average 12/19/2023 14:37:37 163 Above high normal <126 (mg/dL) Kevin solis Performing Location [facility] - [address] [facility] [address]
--- OUTSIDE RECORDS SUMMARY | 2024-01-23 08:24 | External Medical Summary ---
Author Name Unknown Address Unknown Organization [id number]:LABORATORY [address] [facility] [address] Laboratory Report Ordering Provider Test Date Status LUIS MASON 12/19/2023 14:37:37 Final hCG can serve as a screening [...] +Beta subunit [Units/volume] in Serum or Plasma 12/19/2023 14:37:37 <0.6 <=1.0 (mIU/mL) Final Performing Location [facility] [place] [facility] [address] [facility] [address] [facility] [address]
--- OUTSIDE RECORDS SUMMARY | 2024-01-23 08:24 | External Medical Summary | Summary of Care ---
Author Name Unknown Organization [facility] Address [address] [place] [address] Phone [phone] Care Team Providers Care Diamond Setter Apprentice Name Role Phone Heather Wiggins PA-C Primary Care Provide r Encounter Details Date Type Department Care Team (Late st Contact Info) Description 12/13/2023 9:00 AM EST Office Visit [facility] 200 [facility] [place] [address] Heather [facility]iggins PA-C [address] [facility] [address] Bronchitis, complicated*; Ovarian without intrauterine , unspecified laterality; Type 2 diabetes mellitus with hemoglobin A1c goal of less than 7.0% (HCC); Type 2 diabetes mellitus with diabetic mononeuropathy, without long-term current use of insulin ([facility]); HTN, goal below 130/80; ALEX (generalized anxiety disorder); Major depressive disorder, single episode, moderate ([facility]); Body mass index 36.0-36.9, adult Allergies No known active allergiesdocumented as of this encounter (statuses as of 12/13/2023) Medications Medication Sig Dispensed Refills Start Date [...] as of this encounter (statuses as of 12/13/2023) Active Problems Problem Noted Date Diagnosed Date Class 2 severe obesity due t o excess calories with serious comorbidity and body mass index (BMI) of 38.0 to 38.9 in adult 12/13/2023 Type 2 diabetes mellitus wit h diabetic mononeuropathy, without long-term current use of insulin 12/13/2023 Food insecurity 12/26/2022 Overview: Per [facility] Protocol Major depressive disorder, single [...] as of this encounter (statuses as of 12/13/2023) Resolved Problems Problem Noted Date Diagnosed Date Resolved Date Microalbuminuria due to type 2 diabetes mellitus 01/07/2018 11/18/2022 IUD (intrauterine device) in place 05/15/2017 03/24/2021 Overview: 02/2015 Obesity, Class I, BMI 30-34.9 02/11/2016 11/18/2022 Depression 08/30/2015 01/03/2018 documented as of this encounter (statuses as of 12/13/2023) Immunizations Name Administration Dates Next Due Hepatitis B, 20+ yrs 08/10/2017,10/26/2016,12/22 Pneumococcal Conjugate Vacci ne, 20-valent ([id number]) 07/31/2023 Pneumococcal Polysaccharide PPV23 (Pneumovax) 01/03/2018 Seasonal [...] routine follow-up. 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 Was in the ER [...] , unspecified laterality -will reach out to SENIOR OFFICER to see when they want the next HCG to be drawn 3. Type 2 diabetes mellitus with hemoglobin A1c goal of less than 7.0% ([facility]) -labs as ordered, DM eye done today -continue current med regimen for the time being - TELEMEDICINE DIABETIC EYE - HEMOGLOBIN A1C; Future - COMPREHENSIVE METABOLIC PANEL; Future 4. Type 2 diabetes mellitus with diabetic mononeuropathy, without long-term current use of insulin (HCC) 5. HTN, goal below 130/80 -good control today -reschedule cardio and nephro - COMPREHENSIVE METABOLIC PANEL; Future 6. ALEX (generalized anxiety disorder) 7. Major depressive disorder, [...] 12/18/2023 1:00 PM EST Office Visit Nephrology, [facility] [address] [place] [address] Saurav Fu MD [address] [place] [address] 01/24/2024 2:00 PM EDT Office Visit Gynecology/Obstetrics [facility] [address] [place] [address] Linda Chanel PA-C [address] [place] [address] 04/05/2024 1:30 PM EDT Office Visit Cardiology, [facility] [place] [address] [place] [address] Kelsey Curry CRNP [address] [place] [address] Scheduled Orders Name Type Priority Associated Diagnoses [...] Comments DISCUSS TOBACCO CESSATION (REFER TO SMARTSET #9359) 1981 COVID-19 Vaccine (#1) 01/13/1982 HPV/Co-Test 2011 [...] Advance Directives occurred with: Patient Care Teams Diamond Setter Apprentice Relationship Specialty Start Date End Date Heather Wiggins PA-C [address] [place] [address] PCP - General Physician Mica Washer Gluer 11/08/23 documented as of this encounter
--- OUTSIDE RECORDS SUMMARY | 2024-01-23 08:24 | External Medical Summary ---
Author Name Unknown Address Unknown Organization K09:[facility] [place] [address] [place] [address] Laboratory Report Ordering Provider Test Date Status MAY PAREDES 12/19/2023 14:37:37 Final Observation Date Value Abnormality Reference (Units ) Status BUN 12/19/2023 14:37:37 17 6-20 (mg/dL) Final Creatinine 12/19/2023 14:37:37 0.7 0.5-1.0 (mg/dL) Final Glomerular filtration rate/1.73 sq M.predicted [Volume Rate/Area] in Serum, Plasma or Blood by Creatinine-based formula (CKD-EPI) 12/19/2023 14:37:37 >90 >=60 (mL/min) Final eGFR is calculated based on the CKD-EPI 2020 equation SODIUM 12/19/2023 14:37:37 139 135-146 (m mol/L) Final Potassium 12/19/2023 14:37:37 4.2 3.5-5.1 (m mol/L) Final Cl 12/19/2023 14:37:37 105 98-107 (mm ol/L) Final CO2 12/19/2023 14:37:37 24 22-32 (mmo l/L) Final Anion gap 12/19/2023 14:37:37 10 7-15 (mmol /L) Final Glucose 12/19/2023 14:37:37 123 Above high normal 70 -120 (mg/dL) Final Albumin 12/19/2023 14:37:37 4.0 3.8-5.0 (g /dL) Final AST (Aspartate aminotransferase) 12/19/2023 14:37:37 18 10-35 (U/L) Fin al Alk Phos 12/19/2023 14:37:37 41 35-130 (U/ L) Final Bilirubin, Total 12/19/2023 14:37:37 <0.2 <=1 .2 (mg/dL) Final Calcium 12/19/2023 14:37:37 9.2 8.4-10.2 ( mg/dL) Final Protein 12/19/2023 14:37:37 7.0 6.0-8.3 (g /dL) Final ALT (Alanine aminotransferase) 12/19/2023 14:37:37 19 10-35 (U/L) Kevin solis Performing Location [facility] [place] [address] [place] [address]
--- OUTSIDE RECORDS SUMMARY | 2024-01-23 08:24 | External Medical Summary | Summary of Care ---
Author Name Unknown Organization [facility] Address [address] [place] [address] Phone [phone] Care Team Providers Care Mapping Pilot Name Role Phone Heather Wiggins PA-C Primary Care Provide r Reason for Visit * Reason Comments Outpatient Testing Encounter Details Date Type Department Care Team (Late st Contact Info) Description 12/19/2023 2:50 PM EST Laboratory Laboratory [facility] [place] [address] [place] [address] [facility] [address] [place] [address] Right ovarian without intrauterine ; Type 2 diabetes mellitus with hemoglobin A1c goal of less than 7.0% (HCC); HTN, goal below 130/80 Allergies No known active allergiesdocumented as of this encounter (statuses as of 12/19/2023) Medications Medication Sig Dispensed Refills Start Date [...] 03/21/2023 amLODIPine Besylate 5 MG Oral Tablet (Norvasc)Rituo ns:HTN, goal below 130/80 Take 1 Tablet [...] hemoglobin A1c goal of less than 7.0% ([facility]) INJECT 0.6MG SUBCUTANEOUSLY DAILY FOR 1 WEEK [...] as of this encounter (statuses as of 12/19/2023) Active Problems Problem Noted Date Diagnosed Date Class 2 severe obesity due t o excess calories with serious comorbidity and body mass index (BMI) of 38.0 to 38.9 in adult 12/13/2023 Type 2 diabetes mellitus wit h diabetic mononeuropathy, without long-term current use of insulin 12/13/2023 Food insecurity 12/26/2022 Overview: Per [facility] Protocol Major depressive disorder, single [...] as of this encounter (statuses as of 12/19/2023) Resolved Problems Problem Noted Date Diagnosed Date Resolved Date Microalbuminuria due to type 2 diabetes mellitus 01/07/2018 11/18/2022 IUD (intrauterine device) in place 05/15/2017 03/24/2021 Overview: 02/2015 Obesity, Class I, BMI 30-34.9 02/11/2016 11/18/2022 Depression 08/30/2015 01/03/2018 documented as of this encounter (statuses as of 12/19/2023) Immunizations Name Administration Dates Next Due Hepatitis B, 20+ yrs 08/10/2017,10/26/2016,12/22 Pneumococcal Conjugate Vacci ne, 20-valent ([id number]) 07/31/2023 Pneumococcal Polysaccharide PPV23 (Pneumovax) 01/03/2018 Seasonal [...] 01/24/2024 2:00 PM EDT Office Visit Gynecology/Obstetrics [facility] [address] [place] [address] Linda Chanel PA-C [address] [place] [address] 04/05/2024 1:30 PM EDT Office Visit Cardiology, [facility] [address] [place] [address] Kelsey Curry CRNP [address] [place] [address] Pending Results Name Type Priority Associated Diagnoses Date /Time BETA-HCG, QUANTITATIVE Lab Routine Right ovarian without intrauterine 12/19/2023 2:37 PM EST HEMOGLOBIN A1C Lab Routine Type 2 diabetes mellitus with hemoglobin A1c goal of less than 7.0% (HCC) 12/19/2023 2:37 PM EST COMPREHENSIVE METABOLIC PANEL Lab Routine HTN, goal below 130/80 Type 2 diabetes mellitus with hemoglobin A1c goal of less than 7.0% (HCC) 12/19/2023 2:37 PM EST Scheduled Procedures Name Priority Associated Diagnoses Date/Ti me COLONOSCOPY FLEXIBLE PROXIMA L DIAGNOSTIC Recall History of colonic polyps Health Maintenance Due Date Last Done Comments DISCUSS TOBACCO CESSATION (REFER TO SMARTSET #8961) 1981 COVID-19 Vaccine (#1) 01/13/1982 HPV/Co-Test 2011 Diabetic Foot Exam 03/17/2022 03/17/2021, 0 05/19/2020, 03/28/2019, Additional history exists Mammogram 05/30/2023 05/30/2022 Depression Screening 06/02/2023 06/02/2022 B-12 12/21/2023 12/21/2022, 09/13, 12/28/2021, Additional history exists Cervical Cancer Screening 03/24/2024 Pap Smear 03/24/2024 03/24/2021, 06/14, 07/06/2017, Additional history exists GFR 12/01/2024 12/01/2023, 03/2024, 11/14/2023, Additional history exists Diabetic Eye Exam 12/13/2024 12/13/2023, , 10/17/2019, Additional history exists COLONOSCOPY-EVERY 3 YRS AGES 18-100 05/06/2025 05/06/2022, 05/06/2022, 04/09/2019, Additional history exists DTaP,Tdap,and Td Vaccines (2 - Td or Tdap) 05/15/2027 05/15/2017 Lipid Panel 06/02/2027 06/02/2022, 050 03/2021, 03/28/2019, Additional history exists Hepatitis B [...] Visit Diagnoses Diagnosis Right ovarian without intrauterine Type 2 diabetes mellitus with hemoglobin A1c goal of less than 7.0% (HCC) HTN, goal below 130/80 Unspecified essential hypertension documented in this encounter Advance Directives Latest Code Status on File Code Status Date Activated Date Inactivated Comments Full Code 03/24/2023 8:08 AM 03/24/2023 1:26 PM This order reflects the patients wishes and were consensually agreed upon. Question Answer Comments Discussion of Advance Directives occurred with: Patient Care Teams Mapping Pilot Relationship Specialty Start Date End Date Heather Wiggins PA-C [address] [place] [address] PCP - General Physician Cobbler Mckay 11/08/23 documented as of this encounter
--- OUTSIDE RECORDS SUMMARY | 2024-01-23 08:24 | External Medical Summary | Summary of Care ---
Author Name Unknown Organization [facility] Address [address] [facility] [place] [address] Phone [phone] Care Team Providers Care Cabinet Installer Name Role Phone Heather Wiggins PA-C Primary Care Provide r Encounter Details Date Type Department Care Team (Late st Contact Info) Description 12/14/2023 Telephone Gynecology/Obstetrics [facility] [address] [place] [address] Miguel Ángel Connolly MD [address] [place] [address] Allergies No known active allergiesdocumented as of [...] hemoglobin A1c goal of less than 7.0% ([facility]) TAKE 4 TABLETS BY MOUTH DAILY [...] hemoglobin A1c goal of less than 7.0% ([facility]),Microalbumin uria due to type 2 diabetes [...] insulin 12/13/2023 Food insecurity 12/26/2022 Overview: Per [facility] Protocol Major depressive disorder, single [...] yrs 08/10/2017,10/26/2016,12/22 Pneumococcal Conjugate Vacci ne, 20-valent ([id number]) 07/31/2023 Pneumococcal Polysaccharide PPV23 (Pneumovax) 01/03/2018 Seasonal [...] 12/18/2023 1:00 PM EST Office Visit Nephrology, [facility] [address] [place] [address] Saurav Fu MD [address] [facility] [place] [address] 01/24/2024 2:00 PM EDT Office Visit Gynecology/Obstetrics [facility] [address] [place] [address] Linda Chanel PA-C [address] [place] [address] 04/05/2024 1:30 PM EDT Office Visit Cardiology, [facility] [address] [place] [address] Kelsey Curry CRNP [address] [place] [address] Scheduled Procedures Name Priority Associated Diagnoses Date/Ti me COLONOSCOPY FLEXIBLE PROXIMA L DIAGNOSTIC Recall History of colonic polyps Health Maintenance Due Date Last Done Comments DISCUSS TOBACCO CESSATION (REFER TO SMARTSET #3297) 1981 COVID-19 Vaccine (#1) 01/13/1982 HPV/Co-Test 2011 [...] Advance Directives occurred with: Patient Care Teams Cabinet Installer Relationship Specialty Start Date End Date Heather Wiggins PA-C [address] [place] [address] PCP - General Physician Security Architect 11/08/23 documented as of this encounter
--- OUTSIDE RECORDS SUMMARY | 2024-01-23 08:24 | External Medical Summary | Summary of Care ---
Author Name Unknown Organization [facility] Address [address] [place] [address] Phone [phone] Care Team Providers Care Assistant Press Operator Name Role Phone Heather Wiggins PA-C Primary Care Provide r Encounter Details Date Type Department Care Team (Late st Contact Info) Description 12/13/2023 9:00 AM EST Office Visit [facility] [address] [facility] [place] [address] Heather [facility]iggins PA-C [facility] [address] Bronchitis, complicated*; Ovarian without intrauterine , unspecified laterality; Type 2 diabetes mellitus with hemoglobin A1c goal of less than 7.0% (HCC); Type 2 diabetes mellitus with diabetic mononeuropathy, without long-term current use of insulin ([facility]); HTN, goal below 130/80; ALEX (generalized anxiety disorder); Major depressive disorder, single episode, moderate ([facility]); Body mass index 36.0-36.9, adult [...] insulin 12/13/2023 Food insecurity 12/26/2022 Overview: Per [facility] Protocol Major depressive disorder, single [...] yrs 08/10/2017,10/26/2016,12/22 Pneumococcal Conjugate Vacci ne, 20-valent ([id number]) 07/31/2023 Pneumococcal Polysaccharide PPV23 (Pneumovax) 01/03/2018 Seasonal [...] routine follow-up. Has recently been following with supervisor respiratory for ectopic . Was in the ER [...] , unspecified laterality -will reach out to [employer] to see when they want the next HCG to be drawn 3. Type 2 diabetes mellitus with hemoglobin A1c goal of less than 7.0% ([facility]) -labs as ordered, DM eye [...] 12/18/2023 1:00 PM EST Office Visit Nephrology, [facility] [address] [place] [address] Saurav Fu MD [address] [place] [address] 01/24/2024 2:00 PM EDT Office Visit Gynecology/Obstetrics [facility] [address] [place] [address] Linda Chanel PA-C [address] [place] [address] 04/05/2024 1:30 PM EDT Office Visit Cardiology, [facility] [place] [address] [place] [address] Kelsey Curry CRNP [address] [place] [address] Scheduled Orders Name Type Priority Associated Diagnoses [...] Comments DISCUSS TOBACCO CESSATION (REFER TO SMARTSET #1650) 1981 COVID-19 Vaccine (#1) 01/13/1982 HPV/Co-Test 2011 [...] Advance Directives occurred with: Patient Care Teams Assistant Press Operator Relationship Specialty Start Date End Date Heather Wiggins PA-C [address] [place] [address] PCP - General Physician Spreader Operator 11/08/23 documented as of this encounter
--- OUTSIDE RECORDS SUMMARY | 2024-01-23 08:24 | External Medical Summary | Summary of Care ---
Author Name Unknown Organization [facility] Address [address] [facility] [place] [address] Phone [phone] Care Team Providers Care Asparagus Buncher Name Role Phone Heather Wiggins PA-C Primary Care Provide r Encounter Details Date Type Department Care Team (Late st Contact Info) Description 12/14/2023 Orders Only PATIENT PORTAL DO NOT DELETE THIS DEPT USED BY [place] [id number] Allergies No known active allergiesdocumented as of [...] insulin 12/13/2023 Food insecurity 12/26/2022 Overview: Per [facility] Protocol Major depressive disorder, single episode, [...] yrs 08/10/2017,10/26/2016,12/22 Pneumococcal Conjugate Vacci ne, 20-valent ([id number]) 07/31/2023 Pneumococcal Polysaccharide PPV23 (Pneumovax) 01/03/2018 Seasonal [...] 12/18/2023 1:00 PM EST Office Visit Nephrology, [facility] [address] [place] [address] Saurav Fu MD [address] [place] [address] 01/24/2024 2:00 PM EDT Office Visit Gynecology/Obstetrics [facility] [address] [place] [address] Linda Chanel PA-C [address] [place] [address] 04/05/2024 1:30 PM EDT Office Visit Cardiology, [facility] [address] [place] [address] Kelsey Curry CRNP [address] [place] [address] Scheduled Procedures Name Priority Associated Diagnoses Date/Ti me COLONOSCOPY FLEXIBLE PROXIMA L DIAGNOSTIC Recall History of colonic polyps Health Maintenance Due Date Last Done Comments DISCUSS TOBACCO CESSATION (REFER TO SMARTSET #9875) 1981 COVID-19 Vaccine (#1) 01/13/1982 HPV/Co-Test 2011 Diabetic Foot Exam 03/17/2022 03/17/2021, 0 05/19/2020, 03/28/2019, Additional history exists Diabetic Eye Exam 04/06/2022 04/06/2021, , 11/01/2018 Mammogram 05/30/2023 05/30/2022 Depression Screening 06/02/2023 06/02/2022 B-12 12/21/2023 12/21/2022, 09/13, 12/28/2021, Additional history exists Cervical Cancer Screening 03/24/2024 Pap Smear 03/24/2024 03/24/2021, 06/14, 07/06/2017, Additional history exists GFR 12/01/2024 12/01/2023, 01/0 03/2024, 11/14/2023, Additional history exists COLONOSCOPY-EVERY 3 [...] Advance Directives occurred with: Patient Care Teams Asparagus Buncher Relationship Specialty Start Date End Date Heather Wiggins PA-C [address] [place] [address] PCP - General Physician Anatomy Professor 11/08/23 documented as of this encounter
--- OUTSIDE RECORDS SUMMARY | 2024-01-23 08:24 | External Medical Summary | Summary of Care ---
Author Name Unknown Organization [facility] Address [address] [address] Phone [phone] Care Team Providers Care Audio Tape Librarian Name Role Phone Heather Wiggins PA-C Primary Care Provide r Reason for Visit * Reason Onset Date Comments Medication Refill 12/12/2023 Encounter Details Date Type Department Care Team (Late st Contact Info) Description 12/12/2023 Refill Family Practice [facility] [address] [facility] [place] [address] Heather [facility]ins PA[facility]C [facility] [address] HTN, goal below 130/80 Allergies No known [...] before bedtime. 90 Tablet 5 07/31/2023 Active documented as of this encounter (statuses as of 12/14/2023) Active Problems Problem Noted Date Diagnosed Date Class 2 severe obesity due t o excess calories with serious comorbidity and body mass index (BMI) of 38.0 to 38.9 in adult 12/13/2023 Type 2 diabetes mellitus wit h diabetic mononeuropathy, without long-term current use of insulin 12/13/2023 Food insecurity 12/26/2022 Overview: Per [facility] Protocol Major depressive disorder, single [...] Pap smear for cervical cancer screening 05/15/20 Overview: Neg 12/29 Skin tags, multiple acquired [...] yrs 08/10/2017,10/26/2016,12/22 Pneumococcal Conjugate Vacci ne, 20-valent ([id number]) 07/31/2023 Pneumococcal Polysaccharide PPV23 (Pneumovax) 01/03/2018 Seasonal [...] Telephone Encounter - Ginger Flower RN - 12/14/2023 8:36 AM EST Left message for pt to call back. Please address below. * Telephone Encounter - Heather Wiggins PA-C - 12/12/2023 4:09 PM EST Refused Prescriptions: Disp Refills Metoprolol Succinate ER 100 MG Oral Tablet*90 Tab*3 Sig: TAKE 1 TABLET BY MOUTH DAILY WITH 50 MG FOR A TOTAL OF 150 MG DAILY. Strength: 100 mgRefused By: HEATHER WIGGINS for Refusal: Dose needs clarification * Telephone Encounter - Heather Wiggins PA-C - 12/12/2023 4:08 PM EST Pt was just in the hospital for ectopic ? Please confirm she is not . This script has not been filled in over a year. Please confirm she is taking it. * Telephone Encounter - Alejandra Palacios LPN - 12/12/2023 2:54 PM EST Pending Prescriptions: Disp Refills Metoprolol Succinate ER 100 MG Oral Tablet*90 Tab*3 Sig: TAKE 1 TABLET BY MOUTH DAILY WITH 50 MG FOR A TOTAL OF 150 MG DAILY. Strength: 100 mg * Telephone Encounter - Estefany Julian OSA - 12/12/2023 1:16 PM EST Did you pend patient's preferred pharmacy and medication before forwarding?yes Pharmacy: [id number] [address] [place] [address] Pending Prescriptions: Disp Refills Metoprolol Succinate ER 100 MG Oral Table*90 Tab*3 Last Visit: 07/31/2023 (in office), Visit date not found (telemedicine) Next Visit: 12/13/2023 If no future appointments scheduled, and last appointment is greater than a year ago, please schedule patient for a follow-up appointment Last date the medication was ordered: 07/13/22 Is this request for a controlled substance?No Urine Drug Screen:No results found for this or any previous visit. Patient Phone Numbers Labs: Lab Results Component Value Date/Time CREAT 0.67 12/01/2023 12:00 AM CREAT 0.8 05/19/2020 12:43 PM POTASSIUM 3.4 (L) 12/01/2023 12:00 AM POTASSIUM 3.8 05/19/2020 12:43 PM TSH 1.07 04/19/2023 09:03 AM TSH 1.01 05/19/2020 12:43 PM LDLCALC 117 06/02/2022 01:12 PM LDLCALC 71 03/28/2019 01:28 PM LDLDIRECT 89 06/19/2018 12:10 PM ALT 17 11/17/2023 03:02 PM ALT 21 01/15/2020 11:06 AM HGBA1C 6.9 (H) 04/19/2023 09:03 AM HGBA1C 7.8 (H) 05/19/2020 12:43 PM documented in this encounter Plan of Treatment Upcoming Encounters Date Type Department Care Team (Late st Contact Info) Description 12/18/2023 1:00 PM EST Office Visit Nephrology, [facility] [address] [place] [address] Saurav Fu MD 200 [facility] [place] [address] 01/24/2024 2:00 PM EDT Office Visit Gynecology/Obstetrics [facility] [address] [place] [address] Linda Chanel PA-C [address] [place] [address] 04/05/2024 1:30 PM EDT Office Visit Cardiology, [facility] [address] [place] [address] Kelsey Curry CRNP [address] [place] [address] Scheduled Procedures Name Priority Associated Diagnoses Date/Ti me COLONOSCOPY FLEXIBLE PROXIMA L DIAGNOSTIC Recall History of colonic polyps Health Maintenance Due Date Last Done Comments DISCUSS TOBACCO CESSATION (REFER TO SMARTSET #5409) 1981 COVID-19 Vaccine (#1) 01/13/1982 HPV/Co-Test 2011 [...] Advance Directives occurred with: Patient Care Teams Audio Tape Librarian Relationship Specialty Start Date End Date Heather Wiggins PA-C [address] [place] [address] PCP - General Physician Tobacco Stemmer 11/08/23 documented as of this encounter
--- OUTSIDE RECORDS SUMMARY | 2024-01-23 08:24 | External Medical Summary | Summary of Care ---
Author Name Unknown Organization [facility] Address [address] [place] [address] Phone [phone] Care Team Providers Care Assayer Name Role Phone Heather Wiggins PA-C Primary Care Provide r Encounter Details Date Type Department Care Team (Late st Contact Info) Description 12/14/2023 Orders Only PATIENT PORTAL DO NOT DELETE THIS DEPT USED BY [place] [id number] Allergies No known active allergiesdocumented as of [...] insulin 12/13/2023 Food insecurity 12/26/2022 Overview: Per [facility] Protocol Major depressive disorder, single episode, [...] yrs 08/10/2017,10/26/2016,12/22 Pneumococcal Conjugate Vacci ne, 20-valent ([id number]) 07/31/2023 Pneumococcal Polysaccharide PPV23 (Pneumovax) 01/03/2018 Seasonal [...] Visit Nephrology, [facility] [address] [place] [address] Saurav Fu MD [address] [place] [address] 01/24/2024 2:00 PM EDT Office Visit Gynecology/Obstetrics [facility] [address] [place] [address] Linda Chanel PA-C [address] [place] [address] 04/05/2024 1:30 PM EDT Office Visit Cardiology, [facility] [address] [place] [address] Kelsey Curry CRNP [address] [place] [address] Scheduled Procedures Name Priority Associated Diagnoses Date/Ti me COLONOSCOPY FLEXIBLE PROXIMA L DIAGNOSTIC Recall History of colonic polyps Health Maintenance Due Date Last Done Comments DISCUSS TOBACCO CESSATION (REFER TO SMARTSET #3203) 1981 COVID-19 Vaccine (#1) 01/13/1982 HPV/Co-Test 2011 [...] Advance Directives occurred with: Patient Care Teams Assayer Relationship Specialty Start Date End Date Heather Wiggins PA-C [address] [place] [address] PCP - General Physician Yardage Control Clerk 11/08/23 documented as of this encounter
--- OUTSIDE RECORDS SUMMARY | 2024-01-23 08:25 | External Medical Summary | Summary of Care ---
Author Name Unknown Organization [facility] Address [address] [facility] [place] [address] Phone [phone] Care Team Providers Care Rock Duster Name Role Phone Heather Wiggins PA-C Primary Care Provide r Encounter Details Date Type Department Care Team (Late st Contact Info) Description 12/11/2023 Orders Only Family Practice [facility] [place] [address] Heather [facility]iggins PA-C [facility] [address] Allergies No known active allergiesdocumented as of this encounter (statuses as of 12/11/2023) Medications Medication Sig Dispensed Refills Start Date [...] hemoglobin A1c goal of less than 7.0% ([facility]) TAKE 4 TABLETS BY MOUTH [...] hemoglobin A1c goal of less than 7.0% ([facility]),Microalbumin uria due to type 2 diabetes mellitus [...] 1.2MG DAILY 3 mL 1 07/31/2023 Active Additional Information Patient not taking.Reported on 11/16/2023 hydrALAZINE HCl 25 MG Oral Tablet (Apresoline)Indica tions:HTN, goal below 130/80 Take 1 Tablet by mouth in the morning and 1 Tablet at noon and 1 Tablet before bedtime. 90 Tablet 5 07/31/2023 Active documented as of this encounter (statuses as of 12/11/2023) Active Problems Problem Noted Date Diagnosed Date Food insecurity 12/26/2022 Overview: Per [facility] Protocol Major depressive disorder, single episode, [...] as of this encounter (statuses as of 12/11/2023) Resolved Problems Problem Noted Date Diagnosed Date Resolved Date Microalbuminuria due to type 2 diabetes mellitus 01/07/2018 11/18/2022 IUD (intrauterine device) in place 05/15/2017 03/24/2021 Overview: 02/2015 Obesity, Class I, BMI 30-34.9 02/11/2016 11/18/2022 Depression 08/30/2015 01/03/2018 documented as of this encounter (statuses as of 12/11/2023) Immunizations Name Administration Dates Next Due Hepatitis B, 20+ yrs 08/10/2017,10/26/2016,12/22 Pneumococcal Conjugate Vacci ne, 20-valent ([id number]) 07/31/2023 Pneumococcal Polysaccharide PPV23 (Pneumovax) 01/03/2018 Seasonal [...] Description 12/13/2023 9:00 AM EST Office Visit Family Practice [facility] [place] [address] [facility] [address] [place] [address] Heather Wiggins PA-C 200 [facility] [place] [address] 01/24/2024 2:00 PM EDT Office Visit Gynecology/Obstetrics [facility] [address] [place] [address] Linda Chanel PA-C [address] [place] [address] Pending Results Name Type Priority Associated Diagnoses Date /Time OUTSIDE LAB-CORONAVIRUS (COVID-19) Lab Routine 11/14/2023 Scheduled Procedures Name Priority Associated Diagnoses Date/Ti me COLONOSCOPY FLEXIBLE PROXIMA L DIAGNOSTIC Recall History of colonic polyps Health Maintenance Due Date Last Done Comments DISCUSS TOBACCO CESSATION (REFER TO SMARTSET #9890) 1981 COVID-19 Vaccine (#1) 01/13/1982 HPV/Co-Test 2011 Diabetic Foot Exam 03/17/2022 03/17/2021, 0 05/19/2020, 03/28/2019, Additional history exists Diabetic Eye Exam 04/06/2022 04/06/2021, , 11/01/2018 Mammogram 05/30/2023 05/30/2022 Depression Screening 06/02/2023 06/02/2022 B-12 12/21/2023 12/21/2022, 09/13, 12/28/2021, Additional history exists Cervical Cancer Screening 03/24/2024 Pap Smear 03/24/2024 03/24/2021, 06/14, 07/06/2017, Additional history exists GFR 12/01/2024 12/01/2023, 0 03/2024, 11/14/2023, Additional history exists COLONOSCOPY-EVERY 3 [...] Advance Directives occurred with: Patient Care Teams Rock Duster Relationship Specialty Start Date End Date Heather Wiggins PA-C [address] [place] [address] PCP - General Physician Lead Bi Developer 11/08/23 documented as of this encounter
--- OUTSIDE RECORDS SUMMARY | 2024-01-23 08:25 | External Medical Summary | Summary of Care ---
Author Name Unknown Organization [facility] [address] [facility] [address] Phone [phone] Care Team Providers Care County Program Technician Name Role Phone Reggie Wiggins PA-C Primary Care Provide r Reason for Visit * Reason Onset Date Comments Medication Refill 12/12/2023 Encounter Details Date Type Department Care Team (Late st Contact Info) Description 12/12/2023 Refill Family Practice [facility] [address] [facility] [place] [address] Reg[facility]ins PA-C [facility] [address] HTN, goal below 130/80 Allergies No known active allergiesdocumented as of this encounter (statuses as of 12/12/2023) Medications Medication Sig Dispensed Refills Start Date [...] as of this encounter (statuses as of 12/12/2023) Active Problems Problem Noted Date Diagnosed Date Food insecurity 12/26/2022 Overview: Per [facility] Protocol Major depressive disorder, single [...] 12/04/2017 Pap smear for cervical cancer screening 07/03/20 17 Overview: Neg 12/29 Skin tags, multiple acquired 12/02/2016 Non compliance w medication regimen 07/26/2016 Abnormal facial hair 12/22/2015 History of gestational diabetes 09/07/2015 Type 2 diabetes mellitus wit h hemoglobin A1c goal of less than 7.0% 08/30/2015 Overview: HbA1c 03/17/21: 9.7% HTN, goal below 130/80 08/30/2015 Tobacco use disorder 08/30/2015 documented as of this encounter (statuses as of 12/12/2023) Resolved Problems Problem Noted Date Diagnosed Date Resolved Date Microalbuminuria due to type 2 diabetes mellitus 01/07/2018 11/18/2022 IUD (intrauterine device) in place 05/15/2017 03/24/2021 Overview: 02/2015 Obesity, Class I, BMI 30-34.9 02/11/2016 11/18/2022 Depression 08/30/2015 01/03/2018 documented as of this encounter (statuses as of 12/12/2023) Immunizations Name Administration Dates Next Due Hepatitis B, 20+ yrs 08/10/2017,10/26/2016,12/22 Pneumococcal Conjugate Vacci ne, 20-valent ([id number]) 07/31/2023 Pneumococcal Polysaccharide PPV23 (Pneumovax) 01/03/2018 Seasonal [...] encounter Miscellaneous Notes * Telephone Encounter - Reggie Wiggins PA-C - 12/12/2023 4:09 PM EST Refused Prescriptions: Disp Refills Metoprolol Succinate ER 100 MG Oral Tablet*90 Tab*3 Sig: TAKE 1TABLET BY MOUTH DAILY WITH 50 MG FOR A TOTAL OF 150 MG DAILY. Strength: 100 mgRefused By: REGGIE WIGGINS for Refusal: Dose needs clarification * Telephone Encounter - Reggie Wiggins PA-C - 12/12/2023 4:08 PM EST [...] 100 mg * Telephone Encounter - Estefany Julian, PANCHO - 12/12/2023 1:16 PM EST Did you pend patient's preferred pharmacy and medication before forwarding?yes Pharmacy: [id number] Pending Prescriptions: Disp Refills Metoprolol Succinate ER [...] or any previous visit. Patient Phone Numbers [employer] [phone] Labs: Lab Results Component Value Date/Time CREAT [...] EST Office Visit Family Practice [facility] [place] [address] [facility] [place] [address] Reggie Wiggins PA-C [address] [facility] [place] [address] 01/24/2024 2:00 PM EDT Office Visit Gynecology/Obstetrics [facility] [address] [place] [address] Linda Chanel PA-C [address] [place] [address] Scheduled Procedures Name Priority Associated Diagnoses Date/Ti me COLONOSCOPY FLEXIBLE PROXIMA L DIAGNOSTIC Recall History of colonic polyps Health Maintenance Due Date Last Done Comments DISCUSS TOBACCO CESSATION (REFER TO SMARTSET #3175) 1981 COVID-19 Vaccine (#1) 01/13/1982 HPV/Co-Test 2011 [...] Advance Directives occurred with: Patient Care Teams County Program Technician Relationship Specialty Start Date End Date Reggie Wiggins PA-C [address] [place] [address] PCP - General Physician Rehab Technician 11/08/23 documented as of this encounter
--- OUTSIDE RECORDS SUMMARY | 2024-01-23 08:25 | External Medical Summary | Summary of Care ---
Author Name Unknown Organization [facility] Address [address] [place] [address] Phone [phone] Care Team Providers Care Numerologist Name Role Phone Heather Wiggins PA-C Primary Care Provide r Reason for Visit * Reason Comments Outpatient Testing Encounter Details Date Type Department Care Team (Late st Contact Info) Description 12/06/2023 9:20 AM EST Laboratory Laboratory [facility] [address] [place] [id number] [facility] [address] [place] [id number] Right ovarian without intrauterine Allergies No known active allergiesdocumented as of this encounter (statuses as of 12/06/2023) Medications Medication Sig Dispensed Refills Start Date [...] goal of less than 7.0% ([facility]) TAKE 4 TABLETS BY MOUTH DAILY WITH [...] as of this encounter (statuses as of 12/06/2023) Active Problems Problem Noted Date Diagnosed Date Food insecurity 12/26/2022 Overview: Per [facility] Protocol Major depressive disorder, single [...] as of this encounter (statuses as of 12/06/2023) Resolved Problems Problem Noted Date Diagnosed Date Resolved Date Microalbuminuria due to type 2 diabetes mellitus 01/07/2018 11/18/2022 IUD (intrauterine device) in place 05/15/2017 03/24/2021 Overview: 02/2015 Obesity, Class I, BMI 30-34.9 02/11/2016 11/18/2022 Depression 08/30/2015 01/03/2018 documented as of this encounter (statuses as of 12/06/2023) Immunizations Name Administration Dates Next Due Hepatitis B, 20+ yrs 08/10/2017,10/26/2016,12/22 Pneumococcal Conjugate Vacci ne, 20-valent ([id number]) 07/31/2023 Pneumococcal Polysaccharide PPV23 (Pneumovax) 01/03/2018 Seasonal [...] 9:00 AM EST Office Visit Family Practice [facility] [address] [facility] [place] [address] Heather Wiggins PA-C [address] [facility] [place] [address] 01/24/2024 2:00 PM EDT Office Visit Gynecology/Obstetrics [facility] [address] [place] [address] Linda Chanel PA-C [address] [place] [address] Pending Results Name Type Priority Associated Diagnoses Date /Time BETA-HCG, QUANTITATIVE Lab Routine Right ovarian without intrauterine 12/06/2023 8:47 AM EST Scheduled Procedures Name Priority Associated Diagnoses Date/Ti me COLONOSCOPY FLEXIBLE PROXIMA L DIAGNOSTIC Recall History of colonic polyps Health Maintenance Due Date Last Done Comments DISCUSS TOBACCO CESSATION (REFER TO SMARTSET #9532) 1981 COVID-19 Vaccine (#1) 01/13/1982 HPV/Co-Test 2011 [...] Advance Directives occurred with: Patient Care Teams Numerologist Relationship Specialty Start Date End Date Heather Wiggins PA-C [address] [place] [address] PCP - General Physician Coin Teller 11/08/23 documented as of this encounter
--- OUTSIDE RECORDS SUMMARY | 2024-01-23 08:25 | External Medical Summary | Summary of Care ---
Author Name Unknown Organization [facility] Address [address] [facility] [place] [address] Phone [phone] Care Team Providers Care Upsetting Machine Operator Name Role Phone Heather Wiggins PA-C Primary Care Provide r Reason for Visit * Reason Onset Date Comments Emergency Department Follow-Up 12/04/2023 R equest records Encounter Details Date Type Department Care Team (Late st Contact Info) Description 12/04/2023 Telephone Gynecology/Obstetrics [facility] [address] [place] [address] Miguel Ángel Connolly MD [address] [place] [address] Emergency Department Follow-Up (Request re... Allergies No known active allergiesdocumented as of this encounter (statuses as of 12/04/2023) Medications Medication Sig Dispensed Refills Start Date [...] hemoglobin A1c goal of less than 7.0% ([facility]),Microalbumin uria due to type 2 diabetes mellitus [...] hemoglobin A1c goal of less than 7.0% ([facility]) INJECT 0.6MG SUBCUTANEOUSLY DAILY FOR 1 WEEK [...] as of this encounter (statuses as of 12/04/2023) Active Problems Problem Noted Date Diagnosed Date Food insecurity 12/26/2022 Overview: Per [facility] Protocol Major depressive disorder, single episode, [...] as of this encounter (statuses as of 12/04/2023) Resolved Problems Problem Noted Date Diagnosed Date Resolved Date Microalbuminuria due to type 2 diabetes mellitus 01/07/2018 11/18/2022 IUD (intrauterine device) in place 05/15/2017 03/24/2021 Overview: 02/2015 Obesity, Class I, BMI 30-34.9 02/11/2016 11/18/2022 Depression 08/30/2015 01/03/2018 documented as of this encounter (statuses as of 12/04/2023) Immunizations Name Administration Dates Next Due Hepatitis B, 20+ yrs 08/10/2017,10/26/2016,12/22 Pneumococcal Conjugate Vacci ne, 20-valent ([id number]) 07/31/2023 Pneumococcal Polysaccharide PPV23 (Pneumovax) 01/03/2018 Seasonal [...] Telephone Encounter - Janett Rose RN - 12/04/2023 10:19 AM EST Patient states that she was seen in the ER again on Monday at [facility]. Patient given rhogam on 11/14/23 for ectopic, treated with methotrexate, BHCGs trending down per labs. Patient asking if it is concerning that she is passing clots. States they are slightly larger than a quarter. Bleeding is not heavy. Changing a pad Q 2-3 hours. Denies dizziness, SOB or chest pain. Denies pain. Patient asking if this is normal. Advised bleeding and pain precautions for when to go back to ER. Advised that bleeding is expected and advised that she needs to go back to ER with any severe sx. She verbalized understating. Will get most recent ER records and review with provider. documented in this encounter Plan of Treatment Upcoming Encounters Date Type Department Care Team (Late st Contact Info) Description 12/13/2023 9:00 AM EST Office Visit Family Practice [facility] [place] [address] [place], [place] [address] Heather Wiggins PA-C [address] [place] [address] 01/24/2024 2:00 PM EDT Office Visit Gynecology/Obstetrics [facility] [address] [place] [address] Linda Chanel PA-C [address] [place] [address] Scheduled Procedures Name Priority Associated Diagnoses Date/Ti me COLONOSCOPY FLEXIBLE PROXIMA L DIAGNOSTIC Recall History of colonic polyps Health Maintenance Due Date Last Done Comments DISCUSS TOBACCO CESSATION (REFER TO SMARTSET #3293) 1980 COVID-19 Vaccine (#1) 01/13/1982 HPV/Co-Test 2011 Diabetic Foot Exam 03/17/2022 03/17/2021, 0 05/19/2020, 03/28/2019, Additional history exists Diabetic Eye Exam 04/06/2022 04/06/2021, , 11/01/2018 Mammogram 05/30/2023 05/30/2022 Depression Screening 06/02/2023 06/02/2022 B-12 12/21/2023 12/21/2022, 09/13, 12/28/2021, Additional history exists Cervical Cancer Screening 03/24/2024 Pap Smear 03/24/2024 03/24/2021, 06/14, 07/06/2017, Additional history exists GFR 11/17/2024 11/17/2023, 12/2023, 12/21/2022, Additional history exists COLONOSCOPY-EVERY 3 YRS AGES [...] Advance Directives occurred with: Patient Care Teams Upsetting Machine Operator Relationship Specialty Start Date End Date Heather Wiggins PA-C [address] [place] [address] PCP - General Physician Rag Collector 11/08/23 documented as of this encounter
--- OUTSIDE RECORDS SUMMARY | 2024-01-23 08:25 | External Medical Summary ---
Author Name Unknown Address Unknown Organization K01:LABORATORY [address] [address] Laboratory Report Ordering Provider Test Date Status LUIS MASON 12/06/2023 08:47:23 Final hCG can serve as a screening [...] Date Value Abnormality Reference (Units ) Status Choriogonadotropin.int act+Beta subunit [Units/volume] in Serum or Plasma 12/06/2023 08:47:23 21.2 Above high normal <=1.0 (mIU/mL) Final Performing Location LABORATORY [facility] [address]
--- OUTSIDE RECORDS SUMMARY | 2024-01-23 08:25 | External Medical Summary | Summary of Care ---
Author Name Unknown Organization [facility] Address [address] [place] [facility] [place] [place] [address] Phone [phone] Care Team Providers Care High School Band Teacher Name Role Phone Heather Wiggins PA-C Primary Care Provide r Reason for Visit * Reason Onset Date Comments Emergency Department Follow-Up 12/04/2023 R equest records Encounter Details Date Type Department Care Team (Late st Contact Info) Description 12/04/2023 Telephone Gynecology/Obstetrics [facility] [address] [place] [address] Miguel Ángel Connolly MD [address] [place] [address] Emergency Department Follow-Up (Request re... Allergies No [...] A1c goal of less than 7.0% ([facility]),Microalbumin uria due to type 2 diabetes [...] A1c goal of less than 7.0% ([facility]) INJECT 0.6MG SUBCUTANEOUSLY DAILY FOR 1 WEEK [...] Diagnosed Date Food insecurity 12/26/2022 Overview: Per [facility] Protocol Major depressive disorder, single episode, [...] yrs 08/10/2017,10/26/2016,12/22 Pneumococcal Conjugate Vacci ne, 20-valent ([id number]) 07/31/2023 Pneumococcal Polysaccharide PPV23 (Pneumovax) 01/03/2018 Seasonal [...] Encounter - Janett Rose RN - 12/04/2023 12:45 PM EST Patient records received. Patient was given second dose of methotrexate on Monday in ER on 12/01, was evaluated by Dr. Hickey. Should patient just continue weekly BHCG at this time? Any concern for clots she is describing? ( See message below). * Telephone Encounter - Janett Rose RN - 12/04/2023 10:19 AM EST Patient states that she was seen in the ER again on Monday at [facility]. Patient given rhogam on 11/14/23 for [...] 9:00 AM EST Office Visit Family Practice [facility] [place] [facility] [address] Heather Wiggins PA-C [address] [facility] [place] [address] 01/24/2024 2:00 PM EDT [facility] [address] [place] [address] Linda Chanel PA-C [address] [place] [address] Scheduled Procedures Name Priority Associated Diagnoses Date/Ti me COLONOSCOPY FLEXIBLE PROXIMA L DIAGNOSTIC Recall History of colonic polyps Health Maintenance Due Date Last Done Comments DISCUSS TOBACCO CESSATION (REFER TO SMARTSET #2038) 1980 COVID-19 Vaccine (#1) 01/13/1982 HPV/Co-Test 2011 [...] Advance Directives occurred with: Patient Care Teams High School Band Teacher Relationship Specialty Start Date End Date Heather Wiggins PA-C [address] [place] [address] PCP - General Physician Gas Operations Analyst 11/08/23 documented as of this encounter
--- OUTSIDE RECORDS SUMMARY | 2024-01-23 08:25 | External Medical Summary | Summary of Care ---
Author Name Unknown Organization [facility] Address [address] [place] [place] [address] Phone [phone] Care Team Providers Care Passenger Screener Name Role Phone Heather Wiggins PA-C Primary Care Provide r Reason for Visit * Reason Onset Date Comments Emergency Department Follow-Up 12/04/2023 R equest records Encounter Details Date Type Department Care Team (Late st Contact Info) Description 12/04/2023 Telephone Gynecology/Obstetrics [facility] [address] [place] [address] Miguel Ángel Connolly MD [address] [place] [address] Emergency Department Follow-Up (Request re... Allergies No [...] of less than 7.0% ([facility]),Microalbumin uria due to type 2 [...] less than 7.0% ([facility]) INJECT 0.6MG SUBCUTANEOUSLY DAILY FOR 1 WEEK [...] Diagnosed Date Food insecurity 12/26/2022 Overview: Per [facility] Protocol Major depressive disorder, single episode, [...] yrs 08/10/2017,10/26/2016,12/22 Pneumococcal Conjugate Vacci ne, 20-valent ([id number]) 07/31/2023 Pneumococcal Polysaccharide PPV23 (Pneumovax) 01/03/2018 Seasonal [...] Encounter - Janett Rose RN - 12/04/2023 2:51 PM EST Pt returned call and made aware. Reviewed Er precautions with her again. She verbalized understanding. * Telephone Encounter - Janett Rose RN - 12/04/2023 2:33 PM EST Attempted to call patient no answer, LVM to return call. * Telephone Encounter - Miguel Ángel Connolly MD - 12/04/2023 2:29 PM EST She should have BHGC today and Her endometrium was thick I told her she will have VB for a a while Thanks * Telephone Encounter - Janett Rose RN [...] in the ER again on Monday at [facility]. Patient given rhogam on 11/14/23 for [...] 9:00 AM EST Office Visit Family Practice [facility] [place] [address] [facility] [place] [address] Heather Wiggins PA-C [address] [facility] [place] [address] 01/24/2024 2:00 PM EDT Office Visit Gynecology/Obstetrics [facility] [address] [place] [address] Linda Chanel PA-C [address] [place] [address] Scheduled Procedures Name Priority Associated Diagnoses Date/Ti me COLONOSCOPY FLEXIBLE PROXIMA L DIAGNOSTIC Recall History of colonic polyps Health Maintenance Due Date Last Done Comments DISCUSS TOBACCO CESSATION (REFER TO SMARTSET #9039) 1980 COVID-19 Vaccine (#1) 01/13/1982 HPV/Co-Test 2011 Diabetic Foot Exam 03/17/2022 03/17/2021, 0 05/19/2020, 03/28/2019, Additional history exists Diabetic Eye Exam 04/06/2022 04/06/2021, , 11/01/2018 Mammogram 05/30/2023 05/30/2022 Depression Screening 06/02/2023 06/02/2022 B-12 12/21/2023 12/21/2022, 09/13, 12/28/2021, Additional history exists Cervical Cancer Screening 03/24/2024 Pap Smear 03/24/2024 03/24/2021, 06/14, 07/06/2017, Additional history exists GFR 11/17/2024 11/17/2023, 01/0 12/2023, 12/21/2022, Additional history exists COLONOSCOPY-EVERY 3 [...] Advance Directives occurred with: Patient Care Teams Passenger Screener Relationship Specialty Start Date End Date Heather Wiggins PA-C [address] [place] [address] PCP - General Physician Poultry Scalder 11/08/23 documented as of this encounter
--- OUTSIDE RECORDS SUMMARY | 2024-01-23 08:25 | External Medical Summary | Summary of Care ---
Author Name Unknown Organization [facility] Address [address] [place] [facility] [place] [place] [address] Phone [phone] Care Team Providers Care Casket Trimmer Name Role Phone Heather Wiggins PA-C Primary Care Provide r Reason for Visit * Reason Onset Date Comments Emergency Department Follow-Up 12/04/2023 R equest records Encounter Details Date Type Department Care Team (Late st Contact Info) Description 12/04/2023 Telephone Gynecology/Obstetrics [facility] [address] [place] [address] Miguel Ángel Connolly MD [address] [place] [address] Emergency Department Follow-Up (Request re... Allergies No [...] Diagnosed Date Food insecurity 12/26/2022 Overview: Per [facility] Protocol Major depressive disorder, single episode, [...] yrs 08/10/2017,10/26/2016,12/22 Pneumococcal Conjugate Vacci ne, 20-valent ([id number]) 07/31/2023 Pneumococcal Polysaccharide PPV23 (Pneumovax) 01/03/2018 Seasonal [...] in the ER again on Monday at [facility]. Patient given rhogam on 11/14/23 for ectopic, [...] 9:00 AM EST Office Visit Family Practice [facility] [address] [facility] [place] [address] Heather Wiggins PA-C [address] [facility] [place] [address] 01/24/2024 2:00 PM EDT [facility] [address] [place] [address] Linda Chanel PA-C [address] [place] [address] Scheduled Procedures Name Priority Associated Diagnoses Date/Ti me COLONOSCOPY FLEXIBLE PROXIMA L DIAGNOSTIC Recall History of colonic polyps Health Maintenance Due Date Last Done Comments DISCUSS TOBACCO CESSATION (REFER TO SMARTSET #8929) 1980 COVID-19 Vaccine (#1) 01/13/1982 HPV/Co-Test 2011 [...] Advance Directives occurred with: Patient Care Teams Casket Trimmer Relationship Specialty Start Date End Date Heather Wiggins PA-C [address] [place] [address] PCP - General Physician Border Police 11/08/23 documented as of this encounter
--- OUTSIDE RECORDS SUMMARY | 2024-01-23 08:25 | External Medical Summary | Summary of Care ---
Author Name Unknown Organization [facility] Address [address] [place] [facility] [place] [address] Phone [phone] Care Team Providers Care Wringer Machine Operator Name Role Phone Heather Wiggins PA-C Primary Care Provide r Reason for Visit * Reason Onset Date Comments Emergency Department Follow-Up 12/04/2023 R equest records Encounter Details Date Type Department Care Team (Late st Contact Info) Description 12/04/2023 Telephone Gynecology/Obstetrics [facility] [address] [place] [address] Miguel Ángel Connolly MD [address] [place] [address] Emergency Department Follow-Up (Request re... Allergies No [...] A1c goal of less than 7.0% ([facility]),Microalbumin uria due to type 2 [...] A1c goal of less than 7.0% ([facility]) INJECT 0.6MG SUBCUTANEOUSLY DAILY FOR [...] Diagnosed Date Food insecurity 12/26/2022 Overview: Per [facility] Protocol Major depressive disorder, single episode, [...] yrs 08/10/2017,10/26/2016,12/22 Pneumococcal Conjugate Vacci ne, 20-valent ([id number]) 07/31/2023 Pneumococcal Polysaccharide PPV23 (Pneumovax) 01/03/2018 Seasonal [...] encounter Miscellaneous Notes * Telephone Encounter - Miguel Ángel Connolly [...] in the ER again on Monday at [facility]. Patient given rhogam on 11/14/23 for ectopic, [...] 9:00 AM EST Office Visit [facility] [place] [address] Heather Wiggins PA-C [facility] [place] [address] 01/24/2024 2:00 PM EDT Office Visit Gynecology/Obstetrics [facility] [address] [place] [address] Linda Chanel PA-C [address] [place] [address] Scheduled Procedures Name Priority Associated Diagnoses Date/Ti [...] Advance Directives occurred with: Patient Care Teams Wringer Machine Operator Relationship Specialty Start Date End Date Heather Wiggins PA-C [address] [place] [address] PCP - General Physician Pharmaceutical Assistant 11/08/23 documented as of this encounter
[2024-01-23] MEDS: LANTUS PER UNIT CHARGE SQ SCH (08:59)
[2024-01-23] MEDS: METOPROLOL SUCC 25MG EXT REL TAB PO SCH (09:00)
[2024-01-23] MEDS ORDERED: ENOXAPARIN INJ 40 MG/0.4 ML SYR SQ SCH (09:00)
[2024-01-23] MEDS: lisinopril 40 MG TAB PO SCH (12:54)
[2024-01-23] MEDS: amLODIPine BESYLATE 5 MG TAB PO SCH (12:54)
[2024-01-23] MEDS: hydrALAZINE HCL 25 MG TAB PO SCH (12:55)
--- NOTE | 2024-01-23 14:19 | Neurology Consultation ---
Date of Consultation January 23, 2024 Assessment & Plan (1) Lightheadedness: Plan 43 y/o female with history of HTN that presented with a three to four day history of lightheadedness/dizziness upon standing. Overall, given the pt's presentation, would be concerned for orthostatic hypotension. Additionally, MRI brain with no evidence of acute findings suggestive of central vertigo. Symptoms have now improved significantly but if they persist with no identified etiology would pursue further work-up for possible peripheral vertigo as outpatient. Pt would also likely benefit from outpatient neurology evaluation for further evaluation of left upper extremity paresthesias, which have been occurring for a few months and are likely unrelated to the current presentation. 1. Orthostatic vitals 2. Outpatient Neurology follow-up with possible EMG/NCV Telehealth Consultation Telehealth Information Telehealth Information: I performed this visit using a real-time telehealth connection between my location and the patients location ([facility]). After connecting through interactive tele-video, patient was identified by name and date of and/or wristband check.Patient (or authorized healthcare business representative) was informed that this was a telemedicine visit and it was being conducted confidentially over secure lines. My office door was closed and no one else was present in the room with me.Patient (or authorized healthcare business representative) provided consent to proceed with the visit, expressed an understanding of privacy and security of the telemedicine visit, and gave permission to have a hospital business representative in the room in order to assist with the visit and to conduct portions of the visit, as needed. I informed the patient (or authorized healthcare business representative) that I reviewed their record and presented the opportunity for them to ask any questions regarding the visit today. The patient agreed to participate. History of Present Illness Reason for Consultation: dizziness, concern for right vertebral artery stenosis vs occlusion Requesting Physician: Dave York MD Attending Physician: Dave York MD History of Present Illness 43 y/o female that presented to the ED with dizziness and nausea. She states that three or four days ago, she began was doing tasks around the house, when she noticed that she had nausea and lightheadedness. This prompted her to go lay down and this sensation improved. Off and on throughout the remainder of the day, she would notice that if she would get up too fast or do too much around the house, she would feel a sensation of dizziness. Over the following days, she noticed that the symptoms were persistent. She did have an instance where her vision seemed to be blurred but she denies any visual loss or diplopia. She has had numbness/tingling involving her left hand over the last few months, but she denies any new numbness/tingling. She denies having experiencing room spinning sensation, weakness, headache, ear pain, changein hearing, or gait impairment. On today, she states that she feels tired. She states that she had mild dizziness when she stood up but this is improved from the last few days. She states that after her symptoms started she began eating less but previously had no change in PO intake. She denies any recent illness. Allergies Allergy/AdvReac Type Severity Reaction Status Date / Time No Known Allergies Allergy Verified 01/23/24 00:05 Home Medications Medication Instructions Recorded Confirmed Type hydrochlorothiazide 25 mg tablet 25 mg PO QAM 11/22/18 01/22/24 History lisinopril 40 mg tablet 40 mg PO QAM 11/22/18 01/23/24 History metformin 500 mg tablet,extended 1,000 mg PO QDD 11/22/18 01/23/24 History release 24 hr metoprolol succinate 100 mg 100 mg PO QAM 11/22/18 01/23/24 History tablet,extended release 24 hr albuterol sulfate 90 mcg/actuation 2 puff inhalation Q4H PRN Wheezing 09/21/22 01/23/24 History aerosol inhaler amlodipine 5 mg tablet 5 mg PO QAM 09/21/22 01/23/24 History metoprolol succinate 50 mg 50 mg PO QAM 09/21/22 01/22/24 History tablet,extended release 24 hr hydralazine 25 mg tablet 25 mg PO DAILY 03/01/23 01/22/24 History liraglutide 0.6 mg/0.1 mL (18 mg/3 1.8 mg subcut DAILY 01/22/24 01/22/24 History mL) subcutaneous pen injector (Victoza 3-Raul) escitalopram oxalate 10 mg tablet 10 mg PO QAM 01/23/24 01/23/24 History Patient History Medical History Diabetes Hypertension Surgical History History of carpal tunnel surgery Social History Smoking Status: Never smoker Tobacco Type: Cigarettes Second Hand Exposure: No; Do You Dip or Chew Tobacco: No; Tobacco Cessation Education Requested by Patient: No Hx Alcohol Use: No Hx Substance Use: No Preferred Language: Swedish Communication Ability: Effective [employer] Worker Required: No Beliefs That Will Affect Care: None Current Living Situation: Family Other Information That Helps Us Care for You: No Feels Safe at Home: Yes Safety Concerns: Feels Safe At This Time Assistive Devices: None Review of Systems Negative except as listed in HPI Physical Exam AAO X 3 No aphasia or dysarthria VFF EOMI, no nystagmus Facial sensations intact No facial asymmetry Tongue protrudes midline Motor: Moves all four extremities antigravity, no drift Sensation: Intact to light touch throughout Cerebellar: FTN and HTS intact Test of skew negative NIHS 0 Results & Data Vital Signs (Past 12 Hours) Vital Signs Temp Pulse Pulse Resp BP Pulse Ox O2 Del Method 01/23/24 12:58 132/86 01/23/24 11:59 150/98 H 01/23/24 11:34 36.7 C 75 16 147/89 H 98 Room Air 01/23/24 08:17 36.5 C 69 16 137/85 95 Room Air 01/23/24 07:51 72 01/23/24 07:45 Room Air 01/23/24 04:00 36.5 C 71 18 130/84 96 Room Air 01/23/24 03:04 18 Room Air Laboratory Results WBC 8.28, HGB 12.5, HCT 38.6, Plts 267, NA137, Potassium 3.5, Chloride 106, Carbon Dioxide 25, BUN 19, Creatinine 0.83, Glucose 92, Calcium 8.5, Magnesium 1.4, AST 17, ALT 19, Alkaline phosphatase 36, troponin 10.0, LDL 87, HDL 46, Lipase 52, Urinalysis trace leukocyte esterase, urine wbc 10-30, 4+ bacteria Diagnostic Findings CXR:No acute cardiopulmonary findings. 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 Otherwise negative CT angiogram of the brain with no focal stenosis, occlusion or aneurysm. MRI brain:Mild microangiopathic white matter changes versus sequela of chronic headaches. Otherwise no acute stroke or intracranial hemorrhage. No intracranial space-occupying lesion.
--- NOTE | 2024-01-23 15:47 | Hospitalist Progress Note ---
Date of Service January 23, 2024 Assessment & Plan (1) Dizziness: Plan: Rule out orthostasis -- Monitor orthostatic vitals -- HCTZ discontinued for now Rule out BPPV -- Physical therapy ordered Right vertebral artery stenosis versus occlusion --Seen on CT angiogram head CT head: Unremarkable -- Brain MRI: No acute CVA -- Neurologist consulted ARF -- Resolved HTN, slightly elevated --Usually on HCTZ, lisinopril, metoprolol, amlodipine, hydralazine Patient has not been taking all her BP meds for the past 1 to 2 weeks as she ran out of supply and insurance would not refill until January 22 --Currently, metoprolol, amlodipine, lisinopril, hydralazine continued HCTZ on hold Blood pressure seems to be at goal so far --Continue to monitor closely hyperlipidemia, not on maintenance Rx DM 2 on oral medications, suboptimal control as of hemoglobin A1c of 7.16 December 2203 --On metformin and Victoza --Follow-up as an outpatient next mood disorder, stable past tobacco abuse DVT prophylaxis with Heparin subcu Full code Disposition Possible discharge tomorrow to home tomorrow when medically stable Admission and Anticipated Discharge Date Admission Date: January 23, 2024 Subjective Follow-up for dizziness, etc. Seen with AJITH Casper at the bedside throughout whole encounter Seen resting in bed, comfortable, not in distress States she feels better today compared to yesterday Dizziness is resolving Able to ambulate to the bathroom with no dizziness No other focal neurologic deficit No headache, blurring of vision, chest pain, palpitations No abdominal pain, problems in urination, fevers or chills No other new symptom Review of Systems Review of Systems: all noted and negative except for above Physical Exam Physical Exam: General- oriented x 3, not in distress, speaks in sentences with no effort or accessory muscle use Head- atraumatic Eyes- PERRL, EOMI, anicteric ENT- oropharynx clear Neck- supple, no JVD, no adenopathy, no thyromegaly; carotids +2/2, no bruits appreciated Lungs- clear to auscultation bilaterally, no rales/wheezes Heart- normal rate, regular rhythm; no murmur, no gallop, no rub appreciated Abdomen- normal bowel sounds, nondistended, soft, nontender, no masses or hepatosplenomegaly Extremities- no pretibial edema, no calf tenderness; peripheral pulses intact Neuro- alert, oriented x 3; CN 2-12 grossly intact; motor 5/5 bilaterally;sensation 100% on all extremities; no other gross focal neurologic deficits Skin- warm & dry Results & Data Results & Data Vital Signs (Past 12 Hours) Vital Signs Temp Pulse Pulse Resp BP Pulse Ox O2 Del Method 01/23/24 15:36 91 H 01/23/24 12:58 132/86 01/23/24 11:59 150/98 H 01/23/24 11:34 36.7 C 75 16 147/89 H 98 Room Air 01/23/24 08:17 36.5 C 69 16 137/85 95 Room Air 01/23/24 07:51 72 01/23/24 07:45 Room Air 01/23/24 04:00 36.5 C 71 18 130/84 96 Room Air all noted and reviewed including below
[2024-01-23] MEDS ORDERED: STROKE PATIENT DISCHARGE STA (18:34)
--- NOTE | 2024-01-23 18:41 | Discharge Summary ---
Discharge Summary Date of Service January 23, 2024 Notes For Next Care Provider Medication Changes From Visit HCTZ discontinued to prevent hypotension which may be causing dizziness. Please reevaluate on follow-up visit with PCP in 1 week Admission HPI Per Admitting Provider History obtained from patient and records. Medical history significant for HTN, hyperlipidemia, DM 2 on oral medications, mood disorder, past tobacco abuse. Last ER visit November 2023 for ectopic . Patient given methotrexate at the ER and discharged home by OB service. Few days history of dizziness described as both spinning and lightheadedness. Symptoms somewhat made worse with head motion and bending over.. No actual headache, hearing loss, or tinnitus symptoms. Intermittent episodes lasting minutes throughout the day. Patient wondering if symptoms secondary to decision to stop smoking recently. No chest pain, no SOB, no unusual cough symptoms. Medical History as above Surgical History : Carpal tunnel surgery, section Family History : DM, heart disease Personal/Social history : Past tobacco abuse, occasional EtOH intake, [employer] Admission Exam Per Admitting Provider GENERAL: Comfortable, pleasant, obese, no respiratory distress SKIN: Normal color, warm HEENT: [place] palpebral conjunctivae, no ptosis, dry buccal mucosa NECK : Supple, no tenderness CHEST : CTA, no tenderness HEART : RRR, no obvious murmurs ABDOMEN: Some distention, nontender EXTREMITIES : Minimal LE swelling, no LE, tenderness, no other conspicuous deformities noted NEUROLOGIC : Coherent, no facial asymmetry, no other gross focality Principal Dx & Hospital Course #1 = Principal Diagnosis (1) Dizziness: Rule out orthostasis -- Monitor orthostatic vitals: Negative Possible BPPV -- Physical therapy ordered: Negative Zhao-Hallpike test Acute cerebrovascular accident ruled out Right vertebral artery stenosis versus occlusion --Seen on CT angiogram head CT head: Unremarkable -- Brain MRI: No acute CVA -- Neurologist consulted, discussed with Dr. Dolores Gruber She thinks right vertebral artery stenosis is chronic, does not account for dizziness, does not recommend starting aspirin at this point Follow-up with neurology clinic in 2 weeks Dizziness resolved Hold HCTZ for now to prevent hypotension which could be contributing to di zziness PCP follow-up in 1 week, neurologist in 2 weeks Acute renal failure -- Resolved HTN --Usually on HCTZ, lisinopril, metoprolol, amlodipine, hydralazine Patient has not been taking all her BP meds for the past 1 to 2 weeks as she ran out of supply and insurance would not refill until January 22 --Currently, metoprolol, amlodipine, lisinopril, hydralazine continued HCTZ on hold Blood pressure seems to be at goal so far --HCTZ discontinued for now, also since patient received IV contrast for CT angiogram of the head and neck Monitor blood pressure as an outpatient hyperlipidemia, not on maintenance Rx DM 2 on oral medications, suboptimal control as of hemoglobin A1c of 7.16 December 2203 --On metformin and Victoza Hold metformin as patient received IV contrast yesterday, resume on January 24 --Follow-up as an outpatient mood disorder, stable past tobacco abuse DVT prophylaxis with Heparin subcu Full code Disposition Patient advised to stay for another night for continued monitoring Patient declined to stay as she has work tomorrow and could not afford to be absent She was advised to rest at home for at least 1 day prior to returning to work plan of care discussed with patient in detail and at length all questions answered She is understanding, agreeable, comfortable with the plan of care Discharge Exam General- oriented x 3, not in distress, speaks in sentences with no effort or accessory muscle use Head- atraumatic Eyes- PERRL, EOMI, anicteric ENT- oropharynx clear Neck- supple, no JVD, no adenopathy, no thyromegaly; carotids +2/2, no bruits appreciated Lungs- clear to auscultation bilaterally, no rales/wheezes Heart- normal rate, regular rhythm; no murmur, no gallop, no rub appreciated Abdomen- normal bowel sounds, nondistended, soft, nontender, no masses or hepatosplenomegaly Extremities- no pretibial edema, no calf tenderness; peripheral pulses intact Neuro- alert, oriented x 3; CN 2-12 grossly intact; motor 5/5 bilaterally;sensation 100% on all extremities; no other gross focal neurologic deficits Skin- warm & dry Updated Medication List Medication Instructions Recorded Confirmed Type lisinopril 40 mg tablet 40 mg PO QAM 11/22/18 01/23/24 History metformin 500 mg tablet,extended 1,000 mg PO QDD 11/22/18 01/23/24 History release 24 hr metoprolol succinate 100 mg 100 mg PO QAM 11/22/18 01/23/24 History tablet,extended release 24 hr albuterol sulfate 90 mcg/actuation 2 puff inhalation Q4H PRN Wheezing 09/21/22 01/23/24 History aerosol inhaler amlodipine 5 mg tablet 5 mg PO QAM 09/21/22 01/23/24 History metoprolol succinate 50 mg 50 mg PO QAM 09/21/22 01/22/24 History tablet,extended release 24 hr hydralazine 25 mg tablet 25 mg PO DAILY 03/01/23 01/22/24 History liraglutide 0.6 mg/0.1 mL (18 mg/3 1.8 mg subcut DAILY 01/22/24 01/22/24 History mL) subcutaneous pen injector (Valopaatoza 3-Raul) escitalopram oxalate 10 mg tablet 10 mg PO QAM 01/23/24 01/23/24 History Hospital Stay Data Consultations 01/22/24 23:48 ED Decision to Admit Stat 01/23/24 08:29 Consult Neurology Routine Diagnostic Imagining Performed Laboratory Results WBC 8.28 K/ul (4.8-10.8) 01/23/24 07:08 RBC 4.83 M/uL (4.20-5.40) 01/23/24 07:08 Hgb 12.5 g/dl (12.0-16.0) 01/23/24 07:08 Hct 38.6 % (37.0-47.0) 01/23/24 07:08 MCV 79.9 fL (80.0-100.0) L 01/23/24 07:08 MCH 25.9 pg (25.0-34.0) 01/23/24 07:08 MCHC 32.4 g/dL (32.0-36.0) 01/23/24 07:08 RDW Std Deviation 44.4 fL (36.4-46.3) 01/23/24 07:08 RDW Coeff of Kd 15.3 % (11.5-14.5) H 01/23/24 07:08 Plt Count 267 K/uL (130-400) 01/23/24 07:08 MPV 11.4 fL (9.4-12.4) 01/23/24 07:08 Immature Gran % (Auto) 0.2 % 01/23/24 07:08 Neut % (Auto) 47.4 % 01/23/24 07:08 Lymph % (Auto) 38.6 % 01/23/24 07:08 Johnson % (Auto) 11.1 % 01/23/24 07:08 Eos % (Auto) 1.6 % 01/23/24 07:08 Baso % (Auto) 1.1 % 01/23/24 07:08 Neut # (Auto) 3.92 K/uL (1.40-6.50) 01/23/24 07:08 Lymph # (Auto) 3.20 K/uL (1.20-3.40) 01/23/24 07:08 Johnson # (Auto) 0.92 K/uL (0.11-0.59) H 01/23/24 07:08 Eos # (Auto) 0.13 K/uL (0.00-0.50) 01/23/24 07:08 Baso # (Auto) 0.09 K/uL (0.00-0.20) 01/23/24 07:08 Immature Gran # (Auto) 0.02 K/uL (0.01-0.20) 01/23/24 07:08 Sodium 137 mmol/L (136-145) 01/23/24 07:08 Potassium 3.5 mmol/L (3.5-5.1) 01/23/24 07:08 Chloride 106 mmol/L (98-107) 01/23/24 07:08 Carbon Dioxide 25 mmol/L (21-32) 01/23/24 07:08 Anion Gap 6 (3-11) 01/23/24 07:08 BUN 19 mg/dl (6-23) 01/23/24 07:08 Creatinine 0.83 mg/dl (0.6-1.2) D 01/23/24 07:08 Est Cr Clr Drug Dosing 111.8 ml/min 01/23/24 07:08 Est GFR ( Amer) 100.8 ml/min 01/23/24 07:08 Est GFR (Non-Af Amer) 87.0 ml/min 01/23/24 07:08 BUN/Creatinine Ratio 22.9 (10-20) H 01/23/24 07:08 Glucose 92 mg/dl (70-99(Fasting)) 01/23/24 07:08 POC Glucose 147 mg/dl (70-99) H 01/23/24 17:14 Calcium 8.5 mg/dl (8.6-10.3) L 01/23/24 07:08 Magnesium 1.4 mg/dl (1.7-2.4) L 01/22/24 21:04 Total Bilirubin 0.5 mg/dl (0.2-1.0) 01/22/24 21:04 AST 17 U/L (13-39) 01/22/24 21:04 ALT 19 U/L (7-52) 01/22/24 21:04 Alkaline Phosphatase 36 U/L (34-104) 01/22/24 21:04 Troponin I High Sens 10.0 pg/ml (0-14) 01/22/24 21:04 Total Protein 7.8 gm/dl (6.0-8.3) 01/22/24 21:04 Albumin 4.4 gm/dl (3.4-5.0) 01/22/24 21:04 Globulin 3.4 gm/dl (2.5-4.0) 01/22/24 21:04 Albumin/Globulin Ratio 1.3 (0.9-2) 01/22/24 21:04 Triglycerides 133 mg/dl (0-150) 01/23/24 07:08 Cholesterol 160 mg/dl (0-200) 01/23/24 07:08 LDL Cholesterol, Calc 87 mg/dl 01/23/24 07:08 VLDL Cholesterol, Calc 27 mg/dl (0-30) 01/23/24 07:08 HDL Cholesterol 46 mg/dl 01/23/24 07:08 Cholesterol/HDL Ratio 3.5 (0-5) 01/23/24 07:08 Lipase 52 U/L (11-82) 01/22/24 21:04 HCG, Qual Negative (Negative) 01/22/24 21:05 Urine Color Dark Yellow 01/22/24:44 Urine Appearance Turbid (Clear) A 01/22/24: Urine pH 5.0 (4.5-7.5) 01/22/24 21: Ur Specific [place] 1.029 (1.000-1.030) 01/22/24 21:44 Urine Protein 2+ (Negative) H 01/22/24: Urine Glucose (UA) Negative (Negative) 03/11/24 21:44 Urine Ketones 1+ (Negative) H 01/22/24 21:44 Urine Blood Negative (Negative) 01/22/24 21:44 Urine Nitrite Negative (Negative) 01/22/24 21:44 Urine Bilirubin 1+ (Negative) H 01/22/24 21:44 Urine Urobilinogen Negative (Negative) 01/22/24 21:44 Ur Leukocyte Esterase Trace (Negative) H 01/22/24 21:44 Urine WBC (Auto) 10-30 /hpf (0-5) H 01/22/24 21:44 Urine RBC (Auto) 0-4 /hpf (0-4) 01/22/24 21:44 U Hyaline Cast (Auto) 1-5 /lpf (0-5) 01/22/24 21:44 U Epithel Cells (Auto) >30 /lpf (0-5) H 01/22/24 21:44 Urine Bacteria (Auto) 4+ (Negative) H 01/22/24 21:44 Urine Yeast Not Reportable 01/22/24 21:44 Impressions Chest X-Ray 01/22/24 20:55 XR chest 1V portable CLINICAL HISTORY: Chest pain, nonspecific COMPARISON STUDY: Chest radiograph and chest CT April or 2023. FINDINGS: Lung volumes are normal. Lungs are clear. There is no pneumothorax or pleural effusion. Cardiac size is normal. Mediastinal contours are normal. There is no evidence for pulmonary edema. IMPRESSION: No acute cardiopulmonary findings. ACT 112: Negative or not required by law. Electronically signed by: Augustus Herrera M.D. 01/23/2024 7:27 AM Head CTA 01/22/24 21:27 Exam(s): CTA HEAD W/WO Contrast IV Amt: 118 cc opti 320 EXAM: CT Angiography Head Without and With Intravenous Contrast CLINICAL HISTORY: Reason for exam: dizzy. TECHNIQUE: Axial computed tomographic angiography images of the head without and with intravenous contrast. CTDI is 38.03 mGy and DLP is 1204.43 mGy-cm. Automated exposure control was utilized for the study. A dose lowering technique was utilized adhering to the principles of ALARA. MIP reconstructed images were created and reviewed. CONTRAST: Patient received 118 cc opti 320 of IV contrast COMPARISON: None. FINDINGS: VASCULATURE: Right internal carotid artery: No acute findings. Intracranial segment is patent with no significant stenosis. No aneurysm. Right anterior cerebral artery: Unremarkable. No occlusion or significant stenosis. No aneurysm. Right middle cerebral artery: Unremarkable. No occlusion or significant stenosis. No aneurysm. Right posterior cerebral artery: Unremarkable. No occlusion or significant stenosis. No aneurysm. Right vertebral artery: There is diffuse very small size/hypoplastic right vertebral artery with the distal aspect suboptimally visualized, difficult to exclude stenosis or near occlusion versus congenital small size. Left internal carotid artery: No acute findings. Intracranial segment is patent with no significant stenosis. No aneurysm. Left anterior cerebral artery: Unremarkable. No occlusion or significant stenosis. No aneurysm. Left middle cerebral artery: Unremarkable. No occlusion or significant stenosis. No aneurysm. Left posterior cerebral artery: Unremarkable. No occlusion or significant stenosis. No aneurysm. Left vertebral artery: There is a dominant left-sided vertebral artery otherwise patent and within normal limits. Basilar artery: Unremarkable. No occlusion or significant stenosis. No aneurysm. HEAD: Brain: No acute findings. No hemorrhage. No edema. Normal enhancement. Ventricles: Unremarkable. No ventriculomegaly. Bones/joints: No acute fracture. Soft tissues: Unremarkable. Sinuses: Unremarkable as visualized. No acute sinusitis. Mastoid air cells: Unremarkable as visualized. No mastoid effusion. 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 Otherwise negative CT angiogram of the brain with no focal stenosis, occlusion or aneurysm. Electronically signed by: Rose Mclean MD 01/22/24 22:29 PM Neck CTA 01/22/24 21:27 Exam(s): CTA NECK With Contrast IV Amt: 118 cc opti 320 EXAM: CT Angiography Neck With Intravenous Contrast CLINICAL HISTORY: Reason for exam: dizzy. TECHNIQUE: Routine carotid CT angiography protocol was performed with intravenous contrast. NASCET criteria using the distal ICAs for comparison were used for evaluation of stenoses. CTDI is 38.03 mGy and DLP is 1204.43 mGy-cm. Automated exposure control was utilized for the study. A dose lowering technique was utilized adhering to the principles of ALARA. MIP reconstructed images were created and reviewed. CONTRAST: Patient received 118 cc opti 320 of IV contrast COMPARISON: None. FINDINGS: VASCULATURE: Right common carotid artery: Unremarkable. No occlusion or significant stenosis. No dissection. Right internal carotid artery: Unremarkable. Extracranial segment is patent with no occlusion or significant stenosis. No dissection. Right external carotid artery: Unremarkable. No occlusion. Right vertebral artery: Diffuse very small size of the right vertebral artery otherwise normal preserved patency. No occlusion or significant stenosis. No dissection. Left common carotid artery: Unremarkable. No occlusion or significant stenosis. No dissection. Left internal carotid artery: Unremarkable. Extracranial segment is patent with no occlusion or significant stenosis. No dissection. Left external carotid artery: Unremarkable. No occlusion. Left vertebral artery: Dominant left-sided vertebral artery otherwise normal left vertebral artery. No occlusion or significant stenosis. No dissection. NECK: Bones/joints: Unremarkable. No acute fracture. Soft tissues: Unremarkable. Lung apices: Clear. CAROTID STENOSIS REFERENCE USING NASCET CRITERIA: % ICA stenosis = (1 - narrowest ICA diameter/diameter of distal cervical ICA) x 100. Mild - <50% stenosis. Moderate - 50-69% stenosis. Severe - 70-94% stenosis. Near occlusion - 95-99% stenosis. Occluded - 100% stenosis. IMPRESSION: Negative CT angiogram of the neck with no focal stenosis, occlusion or dissection seen. Electronically signed by: Rose Mclean MD 01/22/24 22:23 PM Brain MRI 01/23/24 01:33 Exam(s): MRI HEAD Without Contrast EXAM: MR Head Without Intravenous Contrast CLINICAL HISTORY: Reason for exam: vertigo. TECHNIQUE: Magnetic resonance images of the head/brain without intravenous contrast in multiple planes. COMPARISON: CT brain 03/01/2023. FINDINGS: Brain: Few, small scattered, foci of increased signal within the deep white matter most compatible with mild microangiopathic disease versus sequela of migraine headaches. No hemorrhage. No restricted diffusion abnormality to suggest acute stroke. Ventricles: Unremarkable. No ventriculomegaly. Bones/joints: Unremarkable. No acute fracture. Sinuses: Unremarkable as visualized. No acute sinusitis. Mastoid air cells: Unremarkable as visualized. No mastoid effusion. Orbits: Unremarkable as visualized. IMPRESSION: Mild microangiopathic white matter changes versus sequela of chronic headaches. Otherwise no acute stroke or intracranial hemorrhage. No intracranial space-occupying lesion. Electronically signed by: Rose Mclean MD 01/23/24 02:43 AM Pending Results Patient Have Any Pending Studies at Discharge: No Discharge Instructions Given to Patient (Per Discharging Provider) PLEASE REFER TO YOUR NEW MEDICATION LIST AND FOLLOW INSTRUCTIONS CAREFULLY. Stop HCTZ for now. Further advised to be given by your primary care physician on a follow-up visit. Since you received IV contrast for CT scan, please hold metformin for now to avoid kidney injury. You may resume your metformin on January 25, 2024. PLEASE CALL YOUR PRIMARY CARE PHYSICIAN OR RETURN TO THE ER IF WITH WORSENING OF SYMPTOMS, INCLUDING Dizziness, lightheadedness, headache, weakness, Problems in urination, fevers or chills, etc. FOLLOW UP WITH PRIMARY CARE PHYSICIAN IN 1 WEEK. Total Time Total Time Spent Total Time Spent (In Minutes): >30 minutes
--- NOTE | 2024-01-24 06:02 | Electrocardiogram Report ---
Test Reason : Blood Pressure : / mmHG Vent. Rate : 085 BPM Atrial Rate : 085 BPM P-R Int : 156 ms QRS Dur : 106 ms QT Int : 372 ms P-R-T Axes : 064 052 043 degrees QTc Int : 442 ms Normal sinus rhythm Normal ECG When compared with ECG of 14-NOV-2023 16:58, No significant change was found Confirmed by Javier Key ([id number]) on 01/24/2024 6:02:07 AM Referred By: REFERRED SELF Confirmed By:Javier Key
== END 2024-01-23 18:46 | disposition home or self-care (01) ==
LOC: ED 20:47 → 2N 20:47 → SUATTDRO 01-23 01:32 → 2N 01-23 02:23

== ENCOUNTER 2025-03-15 12:53 | Observation (INO) ==
[2025-03-15] MEDS: OPTIRAY 320 125ml IV ONE (12:57)
--- OUTSIDE RECORDS SUMMARY | 2025-03-15 12:58 | External Medical Summary | Summary of Care ---
Author Name Unknown Organization [facility] Address [address] [place] [address] Phone [phone] Care Team Providers Care Hydrostatic Tester Name Role Phone Unavailable Primary Care Provider Unavailabl e Reason for Visit * Reason Comments Outpatient Testing Encounter Details Date Type Department Care Team (Late st Contact Info) Description 02/28/2025 4:30 PM EDT Laboratory Laboratory, [facility] [address] [place] [id number] [facility] [address] [place] [address] LLQ pain; Constipation, unspecified constipation type Allergies No known active allergiesdocumented as of this encounter (statuses as of 02/28/2025) Medications OneTouch Verio w/Device KitIndications:T ype 2 diabetes mellitus with hemoglobin A1c goal of less than 7.0% (HCC) Use up to 4 times a day E11.9 1 Kit 03/22/20 21 Active OneTouch Verio In Vitro Strip (Glucose Blood)Indication s:Type 2 diabetes mellitus with hemoglobin A1c goal of less than 7.0% (HCC) Use up to 4 times a day E11.9 100 Strip 11 03/22/20 21 Active OneTouch Delica Lancets 33GIndications:T ype 2 diabetes mellitus with hemoglobin A1c goal of less than 7.0% (HCC) Use up to 4 times a day E11.9 100 Each 4 03/22/20 21 Active BD Pen Needle Jolene 2nd Gen 32G X 4 MM (Insulin Pen Needle) Use once daily with Victoza 100 Each 3 02/21/20 24 Active Victoza 18 MG/3ML Subcutaneous Solution Pen-injector (Liraglutide)Ind ications:Type 2 diabetes mellitus with hemoglobin A1c goal of less than 7.0% (HCC) Inject 1.8mg subcutaneously daily 3 mL 5 04/17/20 24 Active Additional Information Patient not taking.Reported on 02/28/2025 amLODIPine Besylate 5 MG Oral Tablet (Norvasc)Indicat ions:HTN, goal below 130/80 Take 1 Tablet by mouth in the morning. 90 Tablet 3 02/20/20 25 Active hydroCHLOROthiaz deepak 25 MG Oral Tablet (Hydrodiuril) TAKE 1 TABLET BY MOUTH EVERY DAY 90 Tablet 02/20/20 25 Active Lisinopril 40 MG Oral TabletIndication s:HTN, goal below 130/80,Type 2 diabetes mellitus with hemoglobin A1c goal of less than 7.0% (HCC),Microalbum inuria due to type 2 diabetes mellitus (HCC) Take 1 Tablet by mouth in the morning. 90 Tablet 1 02/20/20 25 Active metFORMIN HCl ER 500 MG Oral Tablet Extended Release 24 Hour (Glucophage XR)Indications:T ype 2 diabetes mellitus with hemoglobin A1c goal of less than 7.0% (HCC) Take 2 Tablets by mouth in the morning. 180 Tablet 02/20/20 25 Active Metoprolol Succinate ER 100 MG Oral Tablet Extended Release 24 Hour (toPROL XL)Indications:H TN, goal below 130/80 Take 1 Tablet by mouth in the morning. 90 Tablet 3 02/20/20 25 Active Metoprolol Succinate ER 50 MG Oral Tablet Extended Release 24 Hour (toPROL XL)Indications:i n am Take 1 tablet by mouth in the morning with 100mg tablet for a total of 150mg daily 90 Tablet 3 02/20/20 25 Active Albuterol Sulfate HFA 108 (90 Base) MCG/ACT Inhalation Aerosol Solution INHALE 2 PUFFS BY MOUTH EVERY 4 HOURS NEEDED FOR WHEEZING 18 g 02/20/20 25 Active Polyethylene Glycol 3350 17 GM/SCOOP Oral Powder (MiraLax) Take 17 g by mouth as needed for Constipation. Dissolve one heaping tablespoon in 8 ounces of water or juice. 238 g 02/26/20 25 Active documented as of this encounter (statuses as of 02/28/2025) Active Problems Problem Noted Date Diagnosed Date Type 2 diabetes mellitus wit h diabetic mononeuropathy, without long-term current use of insulin 12/13/2023 Assessment & Plan (02/19/2025 11:25 AM EDT): Orders: HEMOGLOBIN A1C; Future ADULT/PEDS OPHTHALMOLOGY/OPTOMETRY REFERRAL OP Food insecurity 12/26/2022 Overview: Per [facility] Protocol Major depressive disorder, single episode, moder ate 11/18/2022 Chronic kidney disease (CKD) 07/25/2022 Overview (07/25/2022): 07/25/2022: CKD Stage 1 Most recent Hb: 13.8 on 03/17/21 Most recent Cr: 0.9 on 12/28/21 Most recent BUN: 13 on 12/28/21 Most recent GFR: 80 on 12/28/21 Severe obesity with body mas s index (BMI) of 35.0 to 39.9 with serious comorbidity 08/20/2019 History of colon polyps 04/09/2019 Overview (04/09/2019): 03/31-csope, sig tics, xle P- Repeat exam in 3 years given multiple polyps, young age--:- Persistent proteinuria 02/08/2019 Dyslipidemia, goal LDL below 70 01/07/2018 Moderate depressive disorder 12/04/2017 Alcohol ingestion, more than 4 drinks/day on alcohol screening 12/04/2017 Abnormal facial hair 12/22/2015 History of gestational diabetes 09/07/2015 Type 2 diabetes mellitus wit h hemoglobin A1c goal of less than 7.0% 08/30/2015 Overview (03/31/2021): HbA1c 03/17/21: 9.7% Assessment & Plan (02/25/2025 3:14 PM EDT): Follow diabetic diet. Continue metformin and victoza as directed. Orders: DIABETES MANAGEMENT EDUCATION (ADA) REFERRAL Assessment & Plan (02/19/2025 11:25 AM EDT): Check labs today. Discussed diabetic diet in detail. Patient declines referral to building construction supervisor. Orders: Lisinopril 40 MG Oral Tablet; Take 1 Tablet by mouth in the morning. metFORMIN HCl ER 500 MG Oral Tablet Extended Release 24 Hour (Glucophage XR); Take 2 Tablets by mouth in the morning. ALBUMIN / CREATININE RATIO, URINE; Future BASIC METABOLIC PANEL; Future HTN, goal below 130/80 08/30/2015 Assessment & Plan (02/25/2025 3:14 PM EDT): Did not take her medications today. Advise to take medications daily as directed. Assessment & Plan (02/19/2025 11:25 AM EDT): Discussed with patient importance of continuing medication therapy. Patient expressed understanding. Monitor BP readings. If having chest pain, worsening symptoms, needs evaluated. Orders: amLODIPine Besylate 5 MG Oral Tablet (Norvasc); Take 1 Tablet by mouth in the morning. Lisinopril 40 MG Oral Tablet; Take 1 Tablet by mouth in the morning. Metoprolol Succinate ER 100 MG Oral Tablet Extended Release 24 Hour (toPROL XL); Take 1 Tablet by mouth in the morning. Metoprolol Succinate ER 50 MG Oral Tablet Extended Release 24 Hour (toPROL XL); Take 1 tablet by mouth in the morning with 100mg tablet for a total of 150mg daily Tobacco use disorder 08/30/2015 documented as of this encounter (statuses as of 02/28/2025) Resolved Problems Problem Noted Date Diagnosed Date Resolved Date Microalbuminuria due to type 2 diabetes mellitus 01/07/2018 11/18/2022 IUD (intrauterine device) in place 05/15/2017 03/24/2021 Overview (05/15/2017): 02/2015 Obesity, Class I, BMI 30-34.9 02/11/2016 11/18/2022 Depression 08/30/2015 01/03/2018 documented as of this encounter (statuses as of 02/28/2025) Immunizations Name Administration Dates Next Due Covid-19 Ad26, Single Dose (Royal/J&J) 04/06/2021 Hepatitis B, 20+ yrs 08/10/2017,10/26/2016,12/22 PPD 02/19/2025,06/28/2024 Pneumococcal Conjugate Vacci ne, 20-valent ([id number]) 07/31/2023 Pneumococcal Polysaccharide PPV23 (Pneumovax) 01/03/2018 Seasonal Influenza Virus Vac cine, Unspecified Formulation 07/31/2023 Seasonal Influenza, PF, 6 M & above, [...] money to get more. 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 [place] [address] Nae Palafox PA-C [address] [place] [address] 03/26/2025 8:00 AM EDT Telemedicine Virtual, Nutrition Services [address] [place] [address] Martita Hampton, RDN [address] [facility] [place] [address] 03/28/2025 11:00 AM EDT Office Visit Ophthalmology, [place] [address] [place] [address] Conrad Mcadams MD [address] [facility] [place] [address] Pending Results Name Type Priority Associated Diagnoses Date /Time COMPREHENSIVE METABOLIC PANEL Lab Routine LLQ pain Constipation, unspecified constipation type 02/28/2025 4:14 PM EDT Scheduled Procedures Name Priority Associated Diagnoses Date/Ti me COLONOSCOPY FLEXIBLE PROXIMA L DIAGNOSTIC Recall History of colonic polyps Health Maintenance Due Date Last Done Comments DISCUSS TOBACCO CESSATION (REFER TO SMARTSET #5749) 1981 Depression Monitoring 1993 Diabetic Foot Exam 03/17/2022 03/17/2021, 0 05/19/2020, 03/28/2019, Additional history exists Mammogram 05/30/2023 05/30/2022 COVID-19 Vaccine ( season) 2024 04/06/2021 Diabetic Eye Exam 12/13/2024 12/13/2023, , 10/17/2019, Additional history exists Influenza Vaccine (FLU shot) (Season Ended) 2025 07/31/2023, 07/31/2023, 09/14/2020, Additional history exists HbA1c 08/21/2025 02/19/2025, 06/13, 12/19/2023, Additional history exists Albumin/Creatinine Ratio 02/19/2026 025, 09/28/2022, 03/17/2021, Additional history exists B-12 02/19/2026 02/19/2025, 020 06/2023, 09/30/2022, Additional history exists GFR 02/19/2026 02/19/2025, 06/13, 12/19/2023, Additional history exists Colonoscopy 2026 05/06/2022, 04/14, 04/09/2019, Additional history exists Pap Smear 02/06/2027 02/07/2024, 03/13, 07/06/2017, Additional history exists DTap/Tdap Vaccines (2 - Td or Tdap) 05/15/2027 05/15/2017 Cervical Cancer Screening 02/06/2029 HPV/Co-Test 02/06/2029 02/07/2024 Lipid Panel 02/19/2030 02/19/2025, 05/14, 03/17/2021, Additional history exists Hepatitis B Vaccine Completed 08/10/2017, 10/26/2016, 12/22/2015 RETIRED - COLONOSCOPY-ANNUAL AGES 18-100 Discontinued 05/06/2022, 05/06/2022, 04/09/2019, Additional history exists Pneumococcal Vaccine: Pediatrics (0 to 5 Years) and At-Risk Patients (6 to 18 Years and 19+ Years) Completed 07/31/2023, 01/03/2018 HPV (Gardasil) Vaccine Aged Out No lo nger eligible based on patient's age to complete this topic MENINGOCOCCAL (MENACTRA/MENVEO) Aged Out No longer eligible based on patient's age to complete this topic Meningitis B Vaccine (Bexsero/Trumemba) Aged Out No longer eligible based on patient's age to complete this topic documented as of this encounter Medical Devices Not on filedocumented as of this encounter Visit Diagnoses Diagnosis HTN, goal below 130/80- Primary Unspecified essential hypertension Syncope, unspecified syncope type Type 2 diabetes mellitus with hemoglobin A1c goal of less than 7.0% (HCC) Microalbuminuria due to type 2 diabetes mellitus ([facility]) Dizziness Dizziness and giddiness Slow transit constipation Type 2 diabetes mellitus with diabetic mononeuropathy, without long-term current use of insulin ([facility]) PPD screening test Screening examination for pulmonary tuberculosis Type 2 diabetes mellitus with hemoglobin A1c goal of less than 7.0% ([facility])- Primary Slow transit constipation HTN, goal below 130/80 Unspecified essential hypertension Polyp of colon, unspecified part of colon, unspecified type LLQ pain Abdominal pain, left lower quadrant Constipation, unspecified constipation type documented in this encounter Advance Directives * Full Code (Latest Code Status on File) Date Activated Date Inactivated Comments 03/24/2023 8:08 AM 03/24/2023 1:26 PM This order r eflects the patients wishes and were consensually agreed upon. Question Answer Comments Discussion of Advance Directives occurred with: Patient
--- OUTSIDE RECORDS SUMMARY | 2025-03-15 12:58 | External Medical Summary ---
Author Name Unknown Address Unknown Organization [id number]:LABORATORY [facility] - [address] [facility] [address] Laboratory Report Ordering Provider Test Date Status CLARA TRAN 02/28/2025 16:14:22 Final Observation Date Value Abnormality Reference (Units ) Status SYNC LEUKOCYTES IN BLOOD BY AUTOMATED COUNT 02/28/2025 16:14:22 11.95 Above high normal 4.00-10.80 (K/uL) Final Segs 02/28/2025 16:14:22 62.0 40.0-75.0 (%) Final Lymphs % 02/28/2025 16:14:22 25.7 18.0-42.0 (%) Final Monos 02/28/2025 16:14:22 10.1 1.0-11.0 (%) Final Eosinophils 02/28/2025 16:14:22 1.0 0.0-6.0 (%) Final Basos 02/28/2025 16:14:22 0.9 0.0-2.0 (%) Final Immature Granulocyte, Percent 02/28/2025 16:14:22 0.3 0.0-2.0 (%) Final Absolute Segs 02/28/2025 16:14:22 7.40 1.80-7.70 (K/uL) Final Lymphs, absolute 02/28/2025 16:14:22 3.07 1.00-4.80 (K/ul) Final Monos, Abs 02/28/2025 16:14:22 1.21 Above high normal 0.00-1.10 (K/uL) Final Eos, Abs 02/28/2025 16:14:22 0.12 0.00-0.70 (K/uL) Final Basos, Abs 02/28/2025 16:14:22 0.11 0.00-0.20 (K/uL) Final Immature Granulocytes, Number 02/28/2025 16:14:22 0.04 0.00-0.20 (K/uL) Final Performing Location LABORATORY [facility] - [address] [facility] [address]
--- OUTSIDE RECORDS SUMMARY | 2025-03-15 12:58 | External Medical Summary ---
Author Name Unknown Address Unknown Organization [id number]:LABORATORY [facility] - [address] [place] [address] Laboratory Report Ordering Provider Test Date Status LOUIE SOSA 02/19/2025 11:38:17 Final Observation Date Value Abnormality Reference (Units ) Status Vitamin B12 02/19/2025 11:38:17 800 900-1619 (pg/mL) Final Performing Location LABORATORY [facility] - [address] [place] [address]
--- OUTSIDE RECORDS SUMMARY | 2025-03-15 12:58 | External Medical Summary | Summary of Care ---
Author Name Unknown Organization [facility] Address [address] [place] [address] Phone [phone] Care Team Providers Care Spring Inspector Name Role Phone Unavailable Primary Care Provider Unavailabl e Reason for Visit * Reason Onset Date Comments Test Results Imaging Study 02/28/2025 Follow Up 02/28/2025 Encounter Details Date Type Department Care Team (Late st Contact Info) Description [facility] [address] [place] [address] Angela Pelletier PA-C [address] [place] [address] Test Results Imaging Study; Follow Up Allergies No known active allergiesdocumented as of [...] HOURS NEEDED FOR WHEEZING 18 g 1 02/20/20 25 Active Polyethylene Glycol 3350 17 GM/SCOOP Oral Powder (MiraLax) Take 17 g by mouth as needed for Constipation. Dissolve one heaping tablespoon in 8 ounces of water or juice. 238 g 1 02/26/20 25 Active Amoxicillin-Pot Clavulanate 875-125 MG Oral Tablet (Augmentin)Indic ations:Diverticu litis of colon Take 1 Tablet by mouth in the morning and 1 Tablet before bedtime. Do all this for 10 days. 20 Tablet 02/29/20 25 025 Active Ciprofloxacin HCl 500 MG Oral Tablet (Cipro)Indicatio ns:Diverticuliti s of colon Take 1 Tablet by mouth in the morning and 1 Tablet before bedtime. Do all this for 7 days. 14 Tablet 02/29/20 25 025 Active documented as of this encounter (statuses [...] diet in detail. Patient declines referral to tube closing machine operator. 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 Called and discussed results w pt CT ABD/PELVIS WO IV CONTRAST - W ORAL CONTRAST Narrative: EXAM EXAM: CT ABD/PELVIS WO IV CONTRAST - W ORAL CONTRAST DATE TIME: 02/28/2025 - 02/28/2025 4:08 pm HISTORY llq pain TECHNIQUE Contiguous sections were obtained through the abdomen and pelvis from the lung base to the pubic symphysis without IV contrast material. Coronal and sagittal reformations were performed on the CT scanner workstation. Oral Contrast: Radiopaque (positive) oral contrast was administered. Type and volume documented separately by extractions technologist. IV Contrast: IV contrast not administered Other contrast: No additional contrast was administered. COMPARISON [facility] RENAL VASCULAR SCAN-COMPLETE, ACC: [id number], dated 2022-10-03 07:54:23; CT ABD_PELVIS W IV CONTRAST - WO ORAL CONTRAST, ACC: [id number], dated 2019-02-13 02:00:06; US TRANSVAGINAL- NON OBSTETRIC, ACC: [id number], dated 2016-04-07 09:40:16 FINDINGS Note: Exam is limited due to lack of IV contrast, especially in the evaluation of solid organs, vessels and bowel mucosa. LINES AND DEVICES: None. LOWER CHEST: Visualized portions are unremarkable. LIVER: Unremarkable. BILIARY: Unremarkable. PANCREAS: Unremarkable. SPLEEN: Unremarkable. ADRENALS: Unremarkable. KIDNEYS/URETERS: Unremarkable. BLADDER: Unremarkable. REPRODUCTIVE ORGANS: Unremarkable. GASTROINTESTINAL TRACT: There is colonic diverticulosis. There is inflammatory changes at the levelof the splenic flexure consistent with acute diverticulitis. There is no evidence of abscess/rupture. There is no bowel obstruction/dilatation. There is no evidence of acute appendicitis. Please note this exam does not exclude underlying colorectal malignancy and routine screening colonoscopy should be performed as per USPSTF guidelines. LYMPH NODES: No lymphadenopathy by CT size criteria. VESSELS: Unremarkable. PERITONEUM/RETROPERITONEUM: No free air or fluid. No focal fluid collection. ABDOMINAL WALL/SOFT TISSUES: No focal fluid collection or free air. BONES: No acute fracture, malalignment or focal osseous destruction. Lumbar spine degenerative changes. Impression: IMPRESSION 1. There is acute diverticulitis involving the splenic flexure of the transverse colon/descending colon. There is no evidence of abscess/perforation. 2. Please note this exam does not exclude underlying colorectal malignancy and routine screening colonoscopy should be performed as per USPSTF guidelines. 3. Additional findings as above. 4. Added to radiology results pathway communication system in accordance with [place] ACT 112 at 4:20 pm on02/28/2025. Pt stated understanding Pain worsening at about 6/10. Hurts to breath. Rec pt consider ER as these can get much worse. Sending in antibiotic and work note documented in this encounter Plan of Treatment Upcoming Encounters Date Type Department Care Team (Late st Contact Info) Description 03/18/2025 8:00 AM EDT Office Visit [facility] [address] [facility] [place] [address] Nae Palafox PA-C [address] [facility] [place] [address] 03/26/2025 8:00 AM EDT Telemedicine Virtual, Nutrition Services [address] [facility] [place] [address] [facility]ita Hampton RDN [facility] [place] [address] 03/28/2025 11:00 AM EDT Office [facility] [address] [place] [address] Conrad Mcadams MD [address] [place] [address] Scheduled Procedures Name Priority Associated Diagnoses Date/Ti me COLONOSCOPY FLEXIBLE PROXIMA L DIAGNOSTIC Recall History of colonic polyps Health Maintenance Due Date Last Done Comments DISCUSS TOBACCO CESSATION (REFER TO SMARTSET #9244) 1981 Depression Monitoring 1993 Diabetic Foot Exam [...] 03/17/2021, Additional history exists B-12 02/19/2026 02/19/2025, 02/0 06/2023, 09/30/2022, Additional history exists GFR 02/19/2026 02/19/2025, 06/13, 12/19/2023, Additional history exists Colonoscopy 2026 05/06/2022, 04/14, 04/09/2019, Additional history exists Pap Smear 02/06/2027 02/07/2024, 03/13, 07/06/2017, Additional history exists DTap/Tdap Vaccines (2 - Td or Tdap) 05/15/2027 05/15/2017 Cervical Cancer Screening 02/06/2029 HPV/Co-Test 02/06/2029 02/07/2024 Lipid Panel 02/19/2030 02/19/2025, 07/2 11/2021, 03/17/2021, Additional history exists Hepatitis B Vaccine [...] Microalbuminuria due to type 2 diabetes mellitus (HCC) Dizziness Dizziness and giddiness Slow transit constipation Type 2 diabetes mellitus with diabetic mononeuropathy, without long-term current use of insulin (HCC) PPD screening test Screening examination for pulmonary tuberculosis Type 2 diabetes mellitus with hemoglobin A1c goal of less than 7.0% (HCC)- Primary Slow transit constipation HTN, goal below 130/80 Unspecified essential hypertension Polyp of colon, unspecified part of colon, unspecified type Diverticulitis of colon- Primary Diverticulitis of colon (without mention of hemorrhage) documented in this encounter Advance Directives * Full Code (Latest Code Status on File) Date Activated Date Inactivated Comments 03/24/2023 8:08 AM 03/24/2023 1:26 PM This order r eflects the patients wishes and were consensually agreed upon. Question Answer Comments Discussion of Advance Directives occurred with: Patient
--- OUTSIDE RECORDS SUMMARY | 2025-03-15 12:58 | External Medical Summary ---
Author Name Unknown Address Unknown Organization [id number]:LABORATORY [facility] - [address] [place] [id number] Laboratory Report Ordering Provider Test Date Status CANDACE DOHERTY 02/19/2025 11:38:17 Final Observation Date Value Abnormality Reference (Units ) Status HbA1C 02/19/2025 11:38:17 7.7 Above high normal 4. 0-5.6 (%) Final The use of HbA1c to monitor glycemic status is based on normal hemoglobin and HbA composition. This test should not be used in patients with abnormal hemoglobin that affects the half life of the red blood cell or the in vivo glycation rates. Glucose, estimated average 02/19/2025 11:38:17 174 Above high normal <126 (mg/dL) Kevin solis Performing Location LABORATORY [facility] - [address] [facility] [place] [facility] [address]
--- OUTSIDE RECORDS SUMMARY | 2025-03-15 12:58 | External Medical Summary ---
Author Name Unknown Address Unknown Organization K09:LABORATORY [facility] [place] [address] Laboratory Report Ordering Provider Test Date Status CANDACE DOHERTY 02/19/2025 11:38:17 Final Observation Date Value Abnormality Reference (Units ) Status BUN 02/19/2025 11:38:17 8 6-20 (mg/dL) Final Creatinine 02/19/2025 11:38:17 0.7 0.5-1.0 (mg/dL) Final Glomerular filtration rate/1.73 sq M.predicted [Volume Rate/Area] in Serum, Plasma or Blood by Creatinine-based formula (CKD-EPI) 02/19/2025 11:38:17 >90 >=60 (mL/min) Final eGFR is calculated based on the CKD-EPI 2020 equation. Sodium 02/19/2025 11:38:17 143 135-146 (m mol/L) Final Potassium 02/19/2025 11:38:17 4.1 3.5-5.1 (m mol/L) Final Cl 02/19/2025 11:38:17 104 98-107 (mm ol/L) Final CO2 02/19/2025 11:38:17 29 22-32 (mmo l/L) Final Anion gap 02/19/2025 11:38:17 10 7-15 (mmol /L) Final Glucose 02/19/2025 11:38:17 150 Above high normal 70 -120 (mg/dL) Final Calcium 02/19/2025 11:38:17 9.7 8.4-10.2 ( mg/dL) Final Performing Location LABORATORY [place] [address]
--- OUTSIDE RECORDS SUMMARY | 2025-03-15 12:58 | External Medical Summary | Summary of Care ---
Author Name Unknown Organization [facility] Address [address] [place] [address] Phone [phone] Care Team Providers Care Elevator Supervisor Name Role Phone Unavailable Primary Care Provider Unavailabl e Reason for Visit * Reason Onset Date Comments TB Test Reading 02/21/2025 Encounter Details Date Type Department Care Team (Late st Contact Info) Description 02/21/2025 2:30 PM EDT Nurse Only Ancillary [facility] [address] [place] [address] Gely, Nurse Fam Prac [facility] [address] [place] [address] TB Test Reading Allergies No known active allergiesdocumented as of this encounter (statuses as of 02/21/2025) Medications OneTouch Verio w/Device KitIndications:T ype 2 [...] daily 3 mL 5 04/17/20 24 Active amLODIPine Besylate 5 MG Oral Tablet (Norvasc)Indicat ions:HTN, goal below 130/80 Take 1 Tablet by mouth in the morning. 90 Tablet 3 02/20/20 25 Active hydroCHLOROthiaz deepak 25 MG Oral Tablet (Hydrodiuril) TAKE 1 TABLET BY MOUTH EVERY DAY 90 Tablet 3 02/20/20 25 Active Lisinopril 40 MG Oral [...] WHEEZING 18 g 1 02/20/20 25 Active documented as of this encounter (statuses as of 02/21/2025) Active Problems Problem Noted Date Diagnosed Date Type 2 diabetes mellitus wit h diabetic mononeuropathy, without long-term current use of insulin 12/13/2023 Assessment & Plan (02/19/2025 11:25 AM EDT): Orders: HEMOGLOBIN A1C; Future ADULT/PEDS OPHTHALMOLOGY/OPTOMETRY REFERRAL OP Food insecurity 12/26/2022 Overview: Per [facility] Protocol Major depressive disorder, single [...] (03/31/2021): HbA1c 03/17/21: 9.7% Assessment & Plan (02/19/2025 11:25 AM EDT): Check labs today. Discussed diabetic diet in detail. Patient declines referral to grain combiner. Orders: Lisinopril 40 MG Oral Tablet; Take 1 Tablet by mouth in the morning. metFORMIN HCl ER 500 MG Oral Tablet Extended Release 24 Hour (Glucophage XR); Take 2 Tablets by mouth in the morning. ALBUMIN / CREATININE RATIO, URINE; Future BASIC METABOLIC PANEL; Future HTN, goal below 130/80 08/30/2015 Assessment & Plan (02/19/2025 11:25 AM EDT): [...] as of this encounter (statuses as of 02/21/2025) Resolved Problems Problem Noted Date Diagnosed Date Resolved Date Microalbuminuria due to type 2 diabetes mellitus 01/07/2018 11/18/2022 IUD (intrauterine device) in place 05/15/2017 03/24/2021 Overview (05/15/2017): 02/2015 Obesity, Class I, BMI 30-34.9 02/11/2016 11/18/2022 Depression 08/30/2015 01/03/2018 documented as of this encounter (statuses as of 02/21/2025) Immunizations Name Administration Dates Next Due Covid-19 Ad26, Single Dose (Royal/J&J) 04/06/2021 Hepatitis B, 20+ yrs 08/10/2017,10/26/2016,12/22 PPD 02/19/2025,06/28/2024 Pneumococcal Conjugate Vacci ne, 20-valent ([id number]) 07/31/2023 Pneumococcal Polysaccharide PPV23 (Pneumovax) 01/03/2018 Seasonal [...] 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 PPD Results: 0 mm documented in this encounter Plan of Treatment Upcoming Encounters Date Type Department Care Team (Late st Contact Info) Description 02/27/2025 3:40 PM EDT Office Visit Family Practice [facility] [address] [place] [address] Nae Palafox PA-C [address] [place] [id number] Scheduled Procedures Name Priority Associated Diagnoses Date/Ti me COLONOSCOPY FLEXIBLE PROXIMA L DIAGNOSTIC Recall History of colonic polyps Health Maintenance Due Date Last Done Comments DISCUSS TOBACCO CESSATION (REFER TO SMARTSET #9158) 1981 Depression Monitoring 1993 Diabetic Foot Exam [...] filedocumented as of this encounter Advance Directives * Full Code (Latest Code Status on File) Date Activated Date Inactivated Comments 03/24/2023 8:08 AM 03/24/2023 1:26 PM This order r eflects the patients wishes and were consensually agreed upon. Question Answer Comments Discussion of Advance Directives occurred with: Patient
--- OUTSIDE RECORDS SUMMARY | 2025-03-15 12:58 | External Medical Summary | Summary of Care ---
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 Rotary Drill Rig Operator Name Role Phone Unavailable Primary Care Provider Unavailabl e Reason for Referral * Precert (Within 24 hrs (call dept; emergent)) - Authorized Specialty Diagnoses / Procedures Referred By Contac t Referred To Contact Radiology Diagnoses LLQ pain Procedures CT ABD/PELVIS WO IV CONTRAST - W ORAL CONTRAST Angela Pelletier PA-C [address] [place] [address] Phone: tel: fax: Referral ID Status Reason Start Date Expiration Date V isits Requested Visits Authorized [id number] Authorized Precert 02/28/2025 04/29/2025 999 999 Reason for Visit * Reason Comments Abdominal Pain Whole abd, mainly on the L side Back Pain Lower back Other No BM in 5 days x 5 days Encounter Details Date Type Department Care Team (Latest Contact Info) Description 02/28/2025 12:15 PM EDT Convenient Care Visit [facility] [address] [place] [address] Angela Pelletier PA-C [address] [place] [address] LLQ pain*; Constipation, unspecified constipation type Allergies No known [...] juice. 238 g 1 02/26/20 25 Active documented as of this [...] diet in detail. 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 file Not on file Not on file documented as of this encounter Last Filed Vital Signs Vital Sign Reading Time Taken Comments Blood Pressure 136/90 02/28/2025 12:07 PM EDT Pulse 80 02/28/2025 12:07 PM EDT Temperature 36.6 °C (97.8 °F) 02/28/2025 1 2:07 PM EDT Respiratory Rate 20 02/28/2025 12:0 7 PM EDT Oxygen Saturation 99% 02/28/2025 12: 07 PM EDT Inhaled Oxygen Concentration - - Weight 105.8 kg (233 lb 3.2 oz) 025 12:07 PM EDT Height 170.2 cm (5' 7") 02/28/2025 12:0 7 PM EDT Body Mass Index 36.52 02/28/2025 12:07 PM EDT documented in this encounter Patient Instructions * Patient Instructions* Angela Pelletier PA-C - 02/28/2025 12:57 PM EDT 4 hour fasting Veronica Ward: CT at 2:45, arrive 2:15. documented in this encounter Progress Notes * Angela Pelletier PA-C - 02/28/2025 12:38 PM EDT Images from the original note were not included. Subjective Gauri Meehan is a 44 year old female presenting for Abdominal Pain (Whole abd, mainly on theL side), Back Pain (Lower back ), and Other (No BM in 5 days x 5 days) History of Present Illness Matthias, a 44-year-old with no known past medical history, presents with a five- day history of constipation. She reports infrequent bowel movements and when does have BM very little stool. She also experiences lower back pain, which she associates with the constipation. She denies any nausea, vomiting, diarrhea, or black or bloody stools. She describes a feeling of fullness and firmness in the abdomen, with more pronounced pain on the left lower side. This is the first time she has experienced constipation. Pt feels so full that she is having difficulty breathing Objective BP 136/90 | Pulse 80 | Temp 36.6 °C (97.8 °F) (Tympanic) | Resp 20 | Ht 1.702 m (5' 7") | Wt 105.8 kg (233 lb 3.2 oz) | SpO2 99% | BMI 36.52 kg/m² | BSA 2.24 m² Physical Exam CHEST: Lungs clear to auscultation, no wheezes, rales, or rhonchi. Pt able to take a deep breath. CARDIOVASCULAR: Heart normal rate and rhythm. ABDOMEN: Abdomen firm, distended, tender to palpation. Bowel sounds decreased. Left lower quadrant tender with rebound tenderness. MUSCULOSKELETAL: Mid-lumbar region tender. Some difficulty getting on and off exam table. Results CT ABD/PELVIS WO IV CONTRAST - W [...] administered. Type and volume documented separately by electrical engineering technologist. IV Contrast: IV contrast not administered Other contrast: No additional contrast was administered. COMPARISON VASC RENAL VASCULAR SCAN-COMPLETE, ACC: [id number], dated 2022-10-03 07:54:23; CT ABD_PELVIS W IV CONTRAST - WO ORAL CONTRAST, ACC: [id number], dated 2019-02-13 02:00:06; US TRANSVAGINAL- NON OBSTETRIC, ACC: [id number], dated 2016-04-07 09:40:16 FINDINGS Note: Exam is [...] with [place] ACT 112 at 4:20 pm 02/28/2025. Assessment and Plan Assessment & Plan Constipation with associated abdominal and back pain Constipation with abdominal distension and back pain. Differential includes bowel obstruction. Withheld antibiotics pending imaging results. - Order abdominal imaging to assess for bowel obstruction. - Advise increased fluid intake and dietary fiber. (R10.32) LLQ pain (primary encounter diagnosis) Plan: CT ABD/PELVIS WO IV CONTRAST - W ORAL CONTRAST, CBC WITH WBC DIFFERENTIAL, COMPREHENSIVE METABOLIC PANEL, CANCELED: CT ABD/PELVIS W WO IV CONTRAST AND W ORAL CONT (K59.00) Constipation, unspecified constipation type Plan: CBC WITH WBC DIFFERENTIAL, COMPREHENSIVE METABOLIC PANEL, CANCELED: CT ABD/PELVIS W WO IV CONTRAST AND W ORAL CONT Over 45 minutes spent with patient exam, counseling, review of previous medical records and with documenting. Wrap-Up Contacted pt and discussed results, see encounter for today. Recommended ER if pain worsens and stressed she should f/u w Primary Care Provider in couple weeks as scheduled Permission obtained from patient to use the [employer] System to develop patient medical note. documented in this encounter Nursing Notes * Checo Walker LPN - 02/28/2025 12:06 PM EDT Gauri Meehan is a 44 year old female who presents to walk-in clinic today complaining of Chief Complaint Patient presents with Abdominal Pain Whole abd, mainly on the L side Back Pain Lower back Other No BM in 5 days x 5 days OTC treatments tried:Miralax, stool softer Effectiveness: none Patient is accompanied by no one for today's visit. documented in this encounter Plan of Treatment Upcoming Encounters Date Type Department Care Team (Late st Contact Info) Description 03/18/2025 8:00 AM EDT Office Visit Family Practice [facility] [address] [facility] [place] [place] [address] Nae Palafox PA-C [address] [facility] [place] [address] 03/26/2025 8:00 AM EDT Telemedicine Virtual, Nutrition Services [address] [place] [address] Martita Hampton, [facility]AN [address] [facility] [address] 03/28/2025 11:00 AM EDT Office Visit Ophthalmology, [place] [address] [address] Conrad Mcadams MD [address] [place] [address] Pending Results Name Type Priority Associated Diagnoses Date /Time CBC WITH WBC DIFFERENTIAL Lab Routine LLQ pain Constipation, unspecified constipation type 02/28/2025 4:14 PM EDT COMPREHENSIVE METABOLIC PANEL Lab Routine LLQ pain Constipation, unspecified constipation type 02/28/2025 4:14 PM EDT CBC Lab Routine LLQ pain Constipation, unspecified constipation type 02/28/2025 4:14 PM EDT DIFFERENTIAL, AUTOMATED Lab Routine LLQ pain Constipation, unspecified constipation type 02/28/2025 4:14 PM EDT Scheduled Orders Name Type Priority Associated Diagnoses Orde r Schedule COMPREHENSIVE METABOLIC PANEL Lab Routine LLQ pain Constipation, unspecified constipation type Expected: 02/28/2025, Expires: 02/28/2026 Scheduled Procedures Name Priority Associated Diagnoses Date/Ti me COLONOSCOPY FLEXIBLE PROXIMA L DIAGNOSTIC Recall History of colonic polyps Health Maintenance Due Date Last Done Comments DISCUSS TOBACCO CESSATION (REFER TO SMARTSET #3295) 1981 Depression Monitoring 1993 Diabetic Foot Exam 03/17/2022 03/17/2021, 0 05/19/2020, 03/28/2019, Additional history exists Mammogram 05/30/2023 05/30/2022 COVID-19 Vaccine ( season) 2024 04/06/2021 Diabetic Eye Exam 12/13/2024 12/13/2023, , 10/17/2019, Additional history exists Influenza Vaccine (FLU shot) (Season Ended) 2025 07/31/2023, 07/31/2023, 09/14/2020, Additional history exists HbA1c 08/21/2025 02/19/2025, 0804/2024, 12/19/2023, Additional history exists Albumin/Creatinine Ratio 02/19/2026 04 025, 09/28/2022, 03/17/2021, Additional history exists B-12 02/19/2026 02/19/2025, 06/2023, 09/30/2022, Additional history exists GFR 02/19/2026 [...] Not on filedocumented as of this encounter Results * CT ABD/PELVIS WO IV CONTRAST - W ORAL CONTRAST (02/28/2025 4:08 PM EDT) Anatomical Region Laterality Modality Body, Abdomen, Pelvis Computed T omography 02/28/2025 4:23 PM EDT Impressions 02/28/2025 4:20 PM EDT IMPRESSION 1. There is acute diverticulitis involving [...] with PA ACT 112 at 4:20 pm on 02/28/2025. Narrative 02/28/2025 4:20 PM EDT EXAM EXAM: CT ABD/PELVIS WO IV CONTRAST [...] administered. Type and volume documented separately by electrical engineering technologist. IV Contrast: IV contrast not administered Other contrast: No additional contrast was administered. COMPARISON VASC RENAL VASCULAR SCAN-COMPLETE, ACC: [id number], dated 2022-10-03 07:54:23; CT ABD_PELVIS W IV CONTRAST - WO ORAL CONTRAST, ACC: [id number], dated 2019-02-13 02:00:06; US TRANSVAGINAL- NON OBSTETRIC, ACC: [id number], dated 2016-04-07 09:40:16 FINDINGS Note: Exam is [...] diverticulosis. There is inflammatory changes at the level of the splenic flexure consistent with acute diverticulitis. [...] focal osseous destruction. Lumbar spine degenerative changes. Procedure Note Krysta, Umer Clint, MD - 02/28/2025 EXAM EXAM: CT ABD/PELVIS WO IV CONTRAST - W ORAL CONTRAST DATE TIME: 02/28/2025 - 02/28/2025 4:08 pm HISTORY llq pain TECHNIQUE Contiguous sections were obtained through the abdomen and pelvis from thelung base to the pubic symphysis without IV contrast material. Coronal andsagittal reformations were performed on the CT scanner workstation. Oral Contrast: Radiopaque (positive) oral contrast was administered. Typeand volume documented separately by electrical engineering technologist. IV Contrast: IV contrast not administered Other contrast: No additional contrast was administered. COMPARISON VASC RENAL VASCULAR SCAN-COMPLETE, ACC: [id number], dated :54:23; CT ABD_PELVIS W IV CONTRAST - WO ORAL CONTRAST, ACC: [id number], [id number] 02:00:06; US TRANSVAGINAL- NON OBSTETRIC, ACC: [id number], dated 2016-04-07 09:40:16 FINDINGS Note: Exam is limited due to lack of IV contrast, especially in theevaluation of solid organs, vessels and bowel mucosa. LINES AND DEVICES: None. LOWER CHEST: Visualized portions are unremarkable. LIVER: Unremarkable. BILIARY: Unremarkable. PANCREAS: Unremarkable. SPLEEN: Unremarkable. ADRENALS: Unremarkable. KIDNEYS/URETERS: Unremarkable. BLADDER: Unremarkable. REPRODUCTIVE ORGANS: Unremarkable. GASTROINTESTINAL TRACT: There is colonic diverticulosis. There isinflammatory changes at the level of the splenic flexure consistent withacute diverticulitis. There is no evidence of abscess/rupture. There isno bowel obstruction/dilatation. There is no evidence of acuteappendicitis. Please note this exam does not exclude underlying colorectalmalignancy and routine screening colonoscopy should be performed as perUSPSTF guidelines. LYMPH NODES: No lymphadenopathy by CT size criteria. VESSELS: Unremarkable. PERITONEUM/RETROPERITONEUM: No free air or fluid. No focal fluidcollection. ABDOMINAL WALL/SOFT TISSUES: No focal fluid collection or free air. BONES: No acute fracture, malalignment or focal osseous destruction.Lumbar spine degenerative changes. IMPRESSION IMPRESSION 1. There is acute diverticulitis involving the splenic flexure of thetransverse colon/descending colon. There is no evidence ofabscess/perforation. 2. Please note this exam does not exclude underlying colorectal malignancyand routine screening colonoscopy should be performed as per USPSTFguidelines. 3. Additional findings as above. 4. Added to radiology results pathway communication system in accordance withPA ACT 112 at 4:20 pm on 02/28/2025. Angela Pelletier PA-C RAD CT Final Result documented in this encounter Visit Diagnoses Diagnosis HTN, goal [...] unspecified part of colon, unspecified type LLQ pain- Primary Abdominal pain, left lower quadrant Constipation, unspecified constipation type LLQ pain Abdominal pain, left lower quadrant documented in this encounter Advance Directives * Full Code (Latest Code Status on File) Date Activated Date Inactivated Comments 03/24/2023 8:08 AM 03/24/2023 1:26 PM This order r eflects the patients wishes and were consensually agreed upon. Question Answer Comments Discussion of Advance Directives occurred with: Patient
--- OUTSIDE RECORDS SUMMARY | 2025-03-15 12:58 | External Medical Summary ---
Author Name Unknown Address Unknown Organization K01:LABORATORY [facility] [address] Laboratory Report Ordering Provider Test Date Status CLARA TRAN 02/28/2025 16:14:22 Final Observation Date Value Abnormality Reference (Units ) Status WBC, Total 02/28/2025 16:14:22 11.95 Above high normal 4.00-10.80 (K/uL) Final RBC 02/28/2025 16:14:22 5.04 3.85-5.15 (M/uL) Final Hemoglobin 02/28/2025 16:14:22 13.5 12.0-15.3 (g/dL) Final HCT 02/28/2025 16:14:22 41.9 36.0-45.2 (%) Final MCV 02/28/2025 16:14:22 83.1 81.5-97.5 (fL) Final MCH 02/28/2025 16:14:22 26.8 27.0-34.0 (pg) Final MCHC 02/28/2025 16:14:22 32.2 32.0-36.0 (g/dL) Final RDW 02/28/2025 16:14:22 15.4 11.5-15.5 (%) Final Platelets 02/28/2025 16:14:22 241 140-400 (K/uL) Final MPV 02/28/2025 16:14:22 11.9 6.6-11.1 (fL) Final Nucleated erythrocytes/100 leukocytes [Ratio] in Blood by Automated count 02/28/2025 16:14:22 0 <=0 (/100 WBCs) Final Performing Location [facility] [address] [address]
--- OUTSIDE RECORDS SUMMARY | 2025-03-15 12:58 | External Medical Summary | Summary of Care ---
Author Name Unknown Organization [facility] Address [address] [place] [address] Phone [phone] Care Team Providers Care Coal Equipment Operator Name Role Phone Unavailable Primary Care Provider Unavailabl e Reason for Referral * Evaluate & Treat - Unlimited Visits (Within 10 days (routine)) - Pending Review Specialty Diagnoses / Procedures Referred By Nancy garza Referred To Contact Optometry Diagnoses Type 2 diabetes mellitus with diabetic mononeuropathy, without long-term current use of insulin ([facility]) Nae Palafox PA-C [address] [place] [address] Phone: tel: fax: Referral ID Status Reason Start Date Expiration Date Visits Requested Visits Authorized [id number] Pending Review Specialty Services Required 02/19/[phone] Question Answer Referral Priority Within 10 days (routine) Where should this appointment be scheduled? [facility] Referring for: Optometry Conditions Optometry Conditions Diabetic Eye Exam without Retinopathy Reason for Visit * Reason Comments Hospital Follow-Up Encounter Details Date Type Department Care Team (Late st Contact Info) Description 02/19/2025 10:00 AM EDT Office Visit Family Practice [facility] [place] [address] [place] [address] Nae Palafox PA-C [address] [place] [address] HTN, goal below 130/80*; Syncope, unspecified syncope type; Type 2 diabetes mellitus with hemoglobin A1c goal of less than 7.0% (HCC); Microalbuminuria due to type 2 diabetes mellitus (HCC); Dizziness; Slow transit constipation; Type 2 diabetes mellitus with diabetic mononeuropathy, without long-term current use of insulin (HCC); PPD screening test Allergies No known active allergiesdocumented as of this encounter (statuses as of 02/20/2025) Medications [employer] Verio w/Device KitIndications:T ype 2 diabetes mellitus with hemoglobin A1c goal of less than 7.0% (HCC) Use up to 4 times a day E11.9 1 Kit 03/22/20 21 Active [employer] In Vitro Strip (Glucose Blood)Indication s:Type 2 diabetes mellitus with hemoglobin A1c goal of less than 7.0% (HCC) Use up to 4 times a day E11.9 100 Strip 11 03/22/20 21 Active [employer] Lancets 33GIndications:T ype 2 diabetes mellitus with [...] than 7.0% ([facility]) Inject 1.8mg subcutaneously daily 3 mL 5 [...] than 7.0% ([facility]),Microalbum inuria due to type 2 diabetes mellitus ([facility]) Take 1 Tablet by mouth in the morning. 90 Tablet 1 02/20/20 25 Active metFORMIN HCl ER 500 MG Oral Tablet Extended Release 24 Hour (Glucophage XR)Indications:T ype 2 diabetes mellitus with hemoglobin A1c goal of less than 7.0% ([facility]) Take 2 Tablets by mouth in the [...] WHEEZING 18 g 1 02/20/20 25 Active Albuterol Sulfate HFA 108 (90 Base) MCG/ACT Inhalation Aerosol Solution INHALE 2 PUFFS BY MOUTH EVERY 4 HOURS NEEDED FOR WHEEZING 18 g 1 02/08/20 23 025 Discontin ued(Refil l) Lisinopril 40 MG Oral TabletIndication s:Type 2 diabetes mellitus with hemoglobin A1c goal of less than 7.0% ([facility]),Microalbum inuria due to type 2 diabetes mellitus (HCC),HTN, goal below 130/80 Take 1 Tablet by mouth in the morning. 90 Tablet 1 02/21/20 24 025 Discontin ued(Refil l) hydroCHLOROthiaz deepak 25 MG Oral Tablet (Hydrodiuril) TAKE 1 TABLET BY MOUTH EVERY DAY 90 Tablet 3 02/21/20 24 025 Discontin ued(Refil l) amLODIPine Besylate 5 MG Oral Tablet (Norvasc)Indicat ions:HTN, goal below 130/80 Take 1 Tablet by mouth in the morning. 90 Tablet 3 02/21/20 24 025 Discontin ued(Refil l) Metoprolol Succinate ER 100 MG Oral Tablet Extended Release 24 Hour (toPROL XL)Indications:H TN, goal below 130/80 Take 1 Tablet by mouth in the morning. 90 Tablet 3 06/28/20 24 025 Discontin ued(Refil l) metFORMIN HCl ER 500 MG Oral Tablet Extended Release 24 Hour (Glucophage XR)Indications:T ype 2 diabetes mellitus with hemoglobin A1c goal of less than 7.0% (HCC) TAKE 2 TABLETS BY MOUTH EVERY MORNING 180 Tablet 08/26/20 24 025 Discontin ued(Refil l) documented as of this encounter (statuses as of 02/20/2025) Active Problems Problem Noted Date Diagnosed Date [...] diet in detail. Patient declines referral to life insurance sales agent. Orders: Lisinopril 40 MG Oral Tablet; Take [...] as of this encounter (statuses as of 02/20/2025) Resolved Problems Problem Noted Date Diagnosed Date Resolved Date Microalbuminuria due to type 2 diabetes mellitus 01/07/2018 11/18/2022 IUD (intrauterine device) in place 05/15/2017 03/24/2021 Overview (05/15/2017): 02/2015 Obesity, Class I, BMI 30-34.9 02/11/2016 11/18/2022 Depression 08/30/2015 01/03/2018 documented as of this encounter (statuses as of 02/20/2025) Immunizations Name Administration Dates Next Due Covid-19 Ad26, Single Dose (Royal/J&J) 04/06/2021 Hepatitis B, 20+ yrs 08/10/2017,10/26/2016,12/22 PPD 02/19/2025,06/28/2024 Pneumococcal Conjugate Vacci ne, 20-valent ([id number]) 07/31/2023 Pneumococcal Polysaccharide PPV23 (Pneumovax) 01/03/2018 Seasonal [...] 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 Not on file Not on file Not on file documented as of this encounter Last Filed Vital Signs Vital Sign Reading Time Taken Comments Blood Pressure 150/90 02/19/2025 10:49 AM EDT Pulse 76 02/19/2025 10:49 AM EDT Temperature 36 °C (96.8 °F) 02/19/2025 10:49 AM EDT Respiratory Rate 18 02/19/2025 10:49 AM EDT Oxygen Saturation 97% 02/19/2025 10:49 AM EDT Inhaled Oxygen Concentration - - Weight 104.8 kg (231 lb) 02/19/2025 10:49 AM EDT Height - - Body Mass Index 36.18 06/28/2024 9:01 AM EDT documented in this encounter Progress Notes * Julissa Hamilton LPN - 02/19/2025 11:28 AM EDT Pt here for PPD administration. Has patient ever had a positive PPD Screening Test? No Has patient ever had the BCG tuberculosis vaccine? No If the patient responds yes to any of the questions, they are NOT eligible for a PPD. DO NOT administer the PPD Screening Test and Notify the provider. Time Out Procedure Performed: Yes Patient Identified (Ask Name/Date of ): Yes Immunization(s) verified: Yes, Immunization Name: PPD, VIS Sheet(s) given: Yes Verified Side and Site: Yes Verified Shot(s) with Parent(s)/Patient: Yes PPD applied at 11:28 AM and patient tolerated well. Patient to return to clinic in 48 hours for PPD Reading. * Nae Palafox PA-C - 02/19/2025 9:09 AM EDT Images from the original note were not included. Subjective Gauri Meehan is a 44 year old female that presents for Hospital Follow-Up Patient states that on 02/15/2025, patient states that she was unresponsive in her bed. She was awarebut not following directions, per patient LAURA was called and taken to [facility] records of patient at the hospital. Per patient her EKG was normal and labs showed slightly low potassium. She does not think she ate regular meals that day. Discussed referral to life insurance sales agent, brooklyn whitley. Admits that she feels like her glucose is dropping at times. Has spells of dizziness. No chest pain. Admits to chronic shortness of breath, is smoking 1/2 ppd, no desire to quit at this time. Patient states she was discharged home the same day. Since then, she has been having waves of dizziness, feels like it is her glucose dropping but did not check glucose. No further loss of consciousness. She has been off of all of her mediations. She needs refills of all of her medications today. BP slightly elevated today, patient denies any chest pain or palpitations. Recently got her insurance back so she wants to get updated labs and refills. She wants a referral for an eye exam as well, was previously told that she had cataracts. Admits that she always has constipation. Discussedadjusting diet and increasing fiber intake. She is not taking any medications or supplements for constipation presently. Denies chest pain, palpitations, wheezing, abdominal pain, nausea, vomiting, fevers, chills. Review of Systems Constitutional: Positive for fatigue (chronic). Negative for chills and fever. HENT: Negative for congestion, ear pain, rhinorrhea and sore throat. Eyes: Negative for pain. Respiratory: Positive for shortness of breath (chronic). Negative for cough and wheezing. Cardiovascular: Negative for chest pain and palpitations. Gastrointestinal: Positive for constipation (chronic). Negative for abdominal pain, diarrhea, nausea and vomiting. Musculoskeletal: Negative for arthralgias. Skin: Negative. Neurological: Positive for dizziness. Negative for headaches. Psychiatric/Behavioral: The patient is not nervous/anxious. Objective BP 150/90 | Pulse 76 | Temp 96.8 °F (36 °C) (Tympanic) | Resp 18 | Wt 231 lb (104.8 kg) | SpO2 97% | BMI 36.18 kg/m² | BSA 2.23 m² BP Readings from Last 3 Encounters: 02/19/25 150/90 07/09/24 140/90 07/01/24 138/80 Wt Readings from Last 3 Encounters: 02/19/25 231 lb (104.8 kg) 07/09/24 234 lb (106.1 kg) 06/28/24 235 lb (106.6 kg) BMI Readings from Last 3 Encounters: 02/19/25 36.18 kg/m² 07/09/24 36.65 kg/m² 06/28/24 36.81 kg/m² Physical Exam Vitals and nursing note reviewed. Constitutional: Appearance: Normal appearance. HENT: Head: Normocephalic and atraumatic. Right Ear: Tympanic membrane and external ear normal. Left Ear: Tympanic membrane and external ear normal. Nose: Nose normal. Mouth/Throat: Mouth: Mucous membranes are moist. Pharynx: Oropharynx is clear. Eyes: Pupils: Pupils are equal, round, and reactive to light. Cardiovascular: Rate and Rhythm: Normal rate and regular rhythm. Pulmonary: Effort: Pulmonary effort is normal. No respiratory distress. Breath sounds: Wheezing (minimal wheezing right upper lobe) present. Chest: Chest wall: No tenderness. Abdominal: General: Bowel sounds are normal. Palpations: Abdomen is soft. Tenderness: There is no abdominal tenderness. Musculoskeletal: Cervical back: Neck supple. No tenderness. Lymphadenopathy: Cervical: No cervical adenopathy. Skin: General: Skin is warm and dry. Neurological: General: No focal deficit present. Mental Status: She is alert and oriented to person, place, and time. Psychiatric: Mood and Affect: Mood normal. Behavior: Behavior normal. Thought Content: Thought content normal. Assessment and Plan HTN, goal below 130/80 Discussed with patient importance of continuing medication [...] tablet for a total of 150mg daily Syncope, unspecified syncope type Unsure on work up at this time as [facility] does not have records of this patient. Labs orderedtoday with close follow up. If experiencing suymptoms, advise to return to the ER. Patient expressed understanding. Type 2 diabetes mellitus with hemoglobin A1c goal of less than 7.0% ([facility]) Check labs today. Discussed diabetic diet in detail. Patient declines referral to life insurance sales agent. Orders: Lisinopril 40 MG Oral Tablet; Take 1 Tablet by mouth in the morning. metFORMIN HCl ER 500 MG Oral Tablet Extended Release 24 Hour (Glucophage XR); Take 2 Tablets by mouth in the morning. ALBUMIN / CREATININE RATIO, URINE; Future BASIC METABOLIC PANEL; Future Microalbuminuria due to type 2 diabetes mellitus (HCC) Check labs today. Orders: Lisinopril 40 MG Oral Tablet; Take 1 Tablet by mouth in the morning. Dizziness Monitor symptoms. Improved today. Stay hydrated daily and eat protein rich meals. Slow transit constipation Increase fiber and water in diet. Exercise as tolerated. Miralax if needed for constipation. Type 2 diabetes mellitus with diabetic mononeuropathy, without long-term current use of insulin (HCC) Orders: HEMOGLOBIN A1C; Future ADULT/PEDS OPHTHALMOLOGY/OPTOMETRY REFERRAL OP PPD screening test Orders: PPD Wrap-Up Follow-up: Return in about 1 week (around 02/26/2025), or if symptoms worsen or fail to improve. | Check-out note: Follow up in 1 week Labs today Consult to optometry I spent a total of 40-54 minutes (exact time 46 mins) on the date of service in preparation, delivery, and documentation of the care provided to Gauri Meehan excluding any time spent in the performance of separately billed services. documented in this encounter Nursing Notes * Licha Glover NA - 02/19/2025 10:39 AM EDT Gauri Meehan presents for ED follow up. Facility: [facility] Service Date: 02/16/25 Unable to retrieve records at this time. How are you feeling today? Patient states she presented to the ER because her family found her unresponsive in bed. Today, patient complains of feeling weak and lightheaded. Denies any dizziness, chest pain or discomfort, nausea. Patient also reports she has not been taking her medication since she has run out. Needs refills onall her medications today to remain compliant. Medications & HM reviewed. documented in this encounter Miscellaneous Notes * Assessment & Plan Note - Nae Palafox PA-C - 02/19/2025 11:25 AM EDT Associated Problem(s): HTN, goal below 130/80 Discussed with patient importance of continuing medication [...] tablet for a total of 150mg daily * Assessment & Plan Note - Nae Palafox PA-C - 02/19/2025 11:25 AM EDT Associated Problem(s): Type 2 diabetes mellitus with hemoglobin A1c goal of less than 7.0% (HCC) Check labs today. Discussed diabetic diet in detail. Patient declines referral to life insurance sales agent. Orders: Lisinopril 40 MG Oral Tablet; Take 1 Tablet by mouth in the morning. metFORMIN HCl ER 500 MG Oral Tablet Extended Release 24 Hour (Glucophage XR); Take 2 Tablets by mouth in the morning. ALBUMIN / CREATININE RATIO, URINE; Future BASIC METABOLIC PANEL; Future * Assessment & Plan Note - Nae Palafox PA-C - 02/19/2025 11:25 AM EDT Associated Problem(s): Type 2 diabetes mellitus with diabetic mononeuropathy, without long-term current use of insulin (HCC) Orders: HEMOGLOBIN A1C; Future ADULT/PEDS OPHTHALMOLOGY/OPTOMETRY REFERRAL OP documented in this encounter Plan of Treatment Upcoming Encounters Date Type Department Care Team (Late st Contact Info) Description 02/27/2025 3:40 PM EDT Office Visit [address] [place] [address] Nae Palafox PA-C [address] [facility] [place] [address] Scheduled Procedures Name Priority Associated Diagnoses Date/Ti me COLONOSCOPY FLEXIBLE PROXIMA L DIAGNOSTIC Recall History of colonic polyps Scheduled Referrals Name Type Priority Associated Diagnoses Orde r Schedule ADULT/PEDS OPHTHALMOLOGY/OPTOM ETRY REFERRAL OP Referral Within 10 days (routine) Type 2 diabetes mellitus with diabetic mononeuropathy, without long-term current use of insulin (HCC) Ordered: 02/19/2025 Health Maintenance Due Date Last Done Comments DISCUSS TOBACCO CESSATION (REFER TO SMARTSET #[id number]) 1981 Depression Monitoring 1993 Diabetic Foot Exam [...] filedocumented as of this encounter Results * (ABNORMAL) BASIC METABOLIC PANEL (02/19/2025 11:38 AM EDT) BUN 8 6 - 20 mg/dL 02/19/2025 12:45 PM EDT [address] CREATININE 0.7 0.5 - 1.0 mg/dL 02/19/2025 12:45 PM EDT [address] EGFR >90 >=60 mL/min 02/19/2025 12:45 PM EDT [facility] 56 Comment:eGFR is calculated b ased on the CKD-EPI 2020 equation. SODIUM 143 135 - 146 mmol/L 02/19/2025 12:45 PM EDT [facility] 56 POTASSIUM 4.1 3.5 - 5.1 mmol/L 02/19/2025 12:45 PM EDT [address] CHLORIDE 104 98 - 107 mmol/L 02/19/2025 12:[address]T [address] CO2 29 22 - 32 mmol/L 02/19/2025 12:45 PM EDT [address] ANION GAP 10 7 - 15 mmol/L 02/19/2025 12:45 PM EDT [address] GLUCOSE 150(H) 70 - 120 mg/dL 02/19/2025 12:45 PM EDT [address] CALCIUM 9.7 8.4 - 10.2 mg/dL 02/19/2025 12:45 PM EDT [address] Blood Venous blood specimen / Unknown Venipuncture / Unknown 02/19/2025 11:38 AM EDT 02/19/2025 11:38 AM EDT Nae Palafox PA-C LAB BLOOD ORDERABLES Final Result [facility] [address] [place] [address] * (ABNORMAL) HEMOGLOBIN A1C (02/19/2025 11:38 AM EDT) Hemoglobin A1C 7.7(H) 4.0 - 5.6 % 02/19/2025 5:57 PM EDT LAB[facility]ORY C Comment:The use of HbA1c to monitor glycemic status is based on normal hemoglobin and HbA composition. This test should not be used in patients with abnormal hemoglobin that affects the half life of the red blood cell or the in vivo glycation rates. Estimated Average Glucose 174(H) <126 mg/dL 02/19/2025 5:57 PM EDT [facility] Blood Venous blood specimen / Unknown Venipuncture / Unknown 02/19/2025 11:38 AM EDT 02/19/2025 11:38 AM EDT Nae Palafox PA-C LAB BLOOD ORDERABLES Final Result LAB[facility]ATORY [facility] [address] [place] [address] documented in this encounter Visit Diagnoses Diagnosis [...] screening test Screening examination for pulmonary tuberculosis documented in this encounter Advance Directives * Full Code (Latest Code Status on File) Date Activated Date Inactivated Comments 03/24/2023 8:08 AM 03/24/2023 1:26 PM This order r eflects the patients wishes and were consensually agreed upon. Question Answer Comments Discussion of Advance Directives occurred with: Patient"
--- OUTSIDE RECORDS SUMMARY | 2025-03-15 12:58 | External Medical Summary ---
Author Name Unknown Address Unknown Organization K01:LABORATORY [facility] [address] [facility] [address] Laboratory Report Ordering Provider Test Date Status LOUIE SOSA 02/19/2025 11:40:41 Final Normal: <30 mg/g creatinine< br/>High: 30-300 mg/g creatinine
Very High: >300 mg/g creatinine
Nephrotic: >2200 mg/g creatinine Observation Date Value Abnormality Reference (Units ) Status Albumin, Urine 02/19/2025 11:40:41 23.00 (mg/dL) Final Creatinine, Urine 02/19/2025 11:40:41 318 (mg/dL) Final Albumin/Creatinine [Mass Ratio] in Urine 02/19/2025 11:40:41 72 Above high normal <30 (mg/g Creat) Final Performing Location [facility]ATORY [facility] [address] [facility] [address]
--- OUTSIDE RECORDS SUMMARY | 2025-03-15 12:58 | External Medical Summary | Summary of Care ---
Author Name Unknown Organization [facility] Address [address] [place] [address] Phone [phone] Care Team Providers Care Account Officer Name Role Phone Unavailable Primary Care Provider Unavailabl e Reason for Visit * Reason Onset Date Comments Medication Refill 03/07/2025 Encounter Details Date Type Department Care Team (Late st Contact Info) Description 03/07/2025 Refill Family Practice [facility] [address] [facility] [place] [address] Nae Palafox PA-C [address] [facility] [place] [address] HTN, goal below 130/80; Type 2 diabetes mellitus with hemoglobin A1c goal of less than 7.0% (HCC); Microalbuminuria due to type 2 diabetes mellitus (HCC) Allergies No known active allergiesdocumented as of this encounter (statuses as of 03/10/2025) Medications OneTouch Verio w/Device KitIndications:T ype 2 [...] Use once daily with Victoza 100 Each 02/21/20 24 Active Victoza 18 MG/3ML Subcutaneous Solution Pen-injector (Liraglutide)Ind ications:Type 2 diabetes mellitus with hemoglobin A1c goal of less than 7.0% (HCC) Inject 1.8mg subcutaneously daily 3 mL 5 04/17/20 24 Active Additional Information Patient not taking.Reported on 02/28/2025 amLODIPine Besylate 5 MG Oral Tablet (Norvasc)Indicat ions:HTN, goal below 130/80 Take 1 Tablet by mouth in the morning. 90 Tablet 02/20/20 25 Active hydroCHLOROthiaz deepak 25 MG Oral Tablet (Hydrodiuril) TAKE 1 TABLET BY MOUTH EVERY DAY 90 Tablet 02/20/20 25 Active Lisinopril 40 MG Oral TabletIndication s:HTN, goal below 130/80,Type 2 diabetes mellitus with hemoglobin A1c goal of less than 7.0% ([facility]),Microalbum inuria due to type 2 diabetes mellitus ([facility]) Take 1 Tablet by mouth in the morning. 90 Tablet 1 02/20/20 25 Active metFORMIN HCl ER 500 MG Oral Tablet Extended Release 24 Hour (Glucophage XR)Indications:T ype 2 diabetes mellitus with hemoglobin A1c goal of less than 7.0% ([facility]) Take 2 Tablets by mouth in the morning. 180 Tablet 02/20/20 25 Active Metoprolol Succinate ER 100 MG Oral Tablet Extended Release 24 Hour (toPROL XL)Indications:H TN, goal below 130/80 Take 1 Tablet by mouth in the morning. 90 Tablet 02/20/20 25 Active Metoprolol Succinate ER 50 MG Oral Tablet Extended Release 24 Hour (toPROL XL)Indications:i n am Take 1 tablet by mouth in the morning with 100mg tablet for a total of 150mg daily 90 Tablet 02/20/20 25 Active Albuterol Sulfate HFA 108 [...] days. 20 Tablet 02/29/20 25 025 Active documented as of this encounter (statuses as of 03/10/2025) Active Problems Problem Noted Date Diagnosed Date [...] diet in detail. Patient declines referral to retail tire sales manager. Orders: Lisinopril 40 MG Oral Tablet; Take [...] as of this encounter (statuses as of 03/10/2025) Resolved Problems Problem Noted Date Diagnosed Date Resolved Date Microalbuminuria due to type 2 diabetes mellitus 01/07/2018 11/18/2022 IUD (intrauterine device) in place 05/15/2017 03/24/2021 Overview (05/15/2017): 02/2015 Obesity, Class I, BMI 30-34.9 02/11/2016 11/18/2022 Depression 08/30/2015 01/03/2018 documented as of this encounter (statuses as of 03/10/2025) Immunizations Name Administration Dates Next Due Covid-19 Ad26, Single Dose (Royal/J&J) 04/06/2021 Hepatitis B, 20+ yrs 08/10/2017,10/26/2016,12/22 PPD 02/19/2025,06/28/2024 Pneumococcal Conjugate Vacci ne, 20-valent ([id number]) 07/31/2023 Pneumococcal Polysaccharide PPV23 (Pneumovax) 01/03/2018 Seasonal [...] 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 Last ordered 02/19/25 for 90 day supplies with refills. * Telephone Encounter - Nunu Barber OSA - 03/07/2025 11:20 AM EDT Pending Prescriptions: Disp Refills amLODIPine Besylate 5 MG Oral Tablet (Nor*90 Tab*3 Sig: Take 1 Tablet by mouth in the morning. Lisinopril 40 MG Oral Tablet 90 Tab*1 Sig: Take 1 Tablet by mouth in the morning. Last Visit: 02/25/2025 (in office), Visit date not found (telemedicine) Next Visit: 03/18/2025 Last date the medication was ordered: 02/19/2025 Patient Active Problem List Diagnosis Type 2 diabetes mellitus with hemoglobin A1c goal of less than 7.0% ([facility]) HTN, goal below 130/80 Tobacco use disorder History of gestational diabetes Abnormal facial hair Moderate depressive disorder Alcohol ingestion, more than 4 drinks/day on alcohol screening Dyslipidemia, goal LDL below 70 Persistent proteinuria History of colon polyps Severe obesity with body mass index (BMI) of 35.0 to 39.9 with serious comorbidity ([facility]) Chronic kidney disease (CKD) Major depressive disorder, single episode, moderate ([facility]) Food insecurity Type 2 diabetes mellitus with diabetic mononeuropathy, without long-term current use of insulin ([facility]) Labs: Lab Results Component Value Date/Time CREAT GFR 0.79 02/20/2016 01:20 AM CREATININE - [facility] 0.6 02/28/2025 04:14 PM CREATININE - [facility] 0.67 12/01/2023 12:00 AM CREATININE - [facility] 0.8 05/19/2020 12:43 PM CREATININE, RANDOM URINE - [facility] 318 02/19/2025 11:40 AM CREATININE, RANDOM URINE - [facility] 388 08/20/2019 04:21 PM Lab Results Component Value Date/Time POTASSIUM - [facility] 4.1 02/28/2025 04:14 PM POTASSIUM - [facility] 3.4 (L) 12/01/2023 12:00 AM POTASSIUM - [facility] 3.8 05/19/2020 12:43 PM Lab Results Component Value Date/Time TSH - [facility] 1.14 06/28/2024 10:08 AM TSH - [facility] 1.01 05/19/2020 12:43 PM Lab Results Component Value Date/Time LDL CHOLESTEROL (CALCULATED) - [facility] 117 02/19/2025 11:38 AM LDL CHOLESTEROL (CALCULATED) - [facility] 117 06/02/2022 01:12 PM LDL CHOLESTEROL (CALCULATED) - [facility] 71 03/28/2019 01:28 PM LDL CHOLESTEROL (CALCULATED) - [facility] 118 01/03/2018 01:46 PM LDL CHOLESTEROL (DIRECT MEASURE) - [facility] 89 06/19/2018 12:10 PM LDL CHOLESTEROL (DIRECT MEASURE) - [facility] NOT APPLICABLE 08/28/2015 01:16 PM Lab Results Component Value Date/Time ALT - [facility] 18 02/28/2025 04:14 PM ALT - [facility] 21 01/15/2020 11:06 AM ALT-OUTSIDE LAB 22 07/26/2016 12:00 AM Hemoglobin AIC Results: Lab Results Component Value Date/Time HEMOGLOBIN A1C - [facility] 7.7 (H) 02/19/2025 11:38 AM HEMOGLOBIN A1C - [facility] 8.3 (H) 06/28/2024 10:08 AM HEMOGLOBIN A1C - [facility] 7.3 (H) 12/19/2023 02:37 PM HEMOGLOBIN A1C - [facility] 7.8 (H) 05/19/2020 12:43 PM HEMOGLOBIN A1C - [facility] 7.6 (H) 03/28/2019 01:28 PM HEMOGLOBIN A1C - [facility] 7.1 (H) 06/19/2018 12:10 PM documented in this encounter Plan of Treatment Upcoming Encounters Date Type Department Care Team (Late st Contact Info) Description 03/18/2025 8:00 AM EDT Office Visit Family Practice [facility] [address] [facility] [place] [address] Nae Palafox PA-C [address] [facility] [place] [address] 03/26/2025 8:00 AM EDT Telemedicine Virtual, Nutrition Services [address] [place] [address] Martita Hampton, ANGELICA [address] [facility] [place] [address] 03/28/2025 11:00 AM EDT Office Visit Delaney J[facility] [address] [place] [address] Conrad Mcadams MD [address] [place] [address] Scheduled Procedures Name Priority Associated Diagnoses Date/Ti me COLONOSCOPY FLEXIBLE PROXIMA L DIAGNOSTIC Recall History of colonic polyps Health Maintenance Due Date Last Done Comments DISCUSS TOBACCO CESSATION (REFER TO SMARTSET #7231) 1981 Depression Monitoring 1993 Diabetic Foot Exam [...] 02/0 06/2023, 09/30/2022, Additional history exists GFR 02/28/2026 02/28/2025, 04/0 07/2025, 06/28/2024, Additional history exists Colonoscopy 2026 05/06/2022, 04/14, [...] colon, unspecified part of colon, unspecified type HTN, goal below 130/80 Unspecified essential hypertension Type 2 diabetes mellitus with hemoglobin A1c goal of less than 7.0% (HCC) Microalbuminuria due to type 2 diabetes mellitus (HCC) documented in this encounter Advance Directives * Full Code (Latest Code Status on File) Date Activated Date Inactivated Comments 03/24/2023 8:08 AM 03/24/2023 1:26 PM This order r eflects the patients wishes and were consensually agreed upon. Question Answer Comments Discussion of Advance Directives occurred with: Patient
--- OUTSIDE RECORDS SUMMARY | 2025-03-15 12:58 | External Medical Summary | Summary of Care ---
Author Name Unknown Organization [facility] Address [address] [place] [address] Phone [phone] Care Team Providers Care Terrazzo Helper Name Role Phone Unavailable Primary Care Provider Unavailabl e Reason for Visit * Reason Comments Outpatient Testing Encounter Details Date Type Department Care Team (Late st Contact Info) Description 02/19/2025 11:40 AM EDT Laboratory Laboratory [facility] [address] [place] [address] [facility] 200 [facility] [place] [address] Dyslipidemia, goal LDL below 70; Encounter for long-term (current) use of medications; Type 2 diabetes mellitus with diabetic mononeuropathy, without long-term current use of insulin (HCC); Type 2 diabetes mellitus with hemoglobin A1c goal of less than 7.0% (HCC) Allergies No known active allergiesdocumented as of this encounter (statuses as of 02/19/2025) Medications OneTouch Verio w/Device KitIndications:T ype 2 [...] 4 times a day E11.9 100 Each 03/22/20 21 Active BD Pen Needle Jolene [...] as of this encounter (statuses as of 02/19/2025) Active Problems Problem Noted Date Diagnosed Date Type 2 diabetes mellitus wit h diabetic mononeuropathy, without long-term current use of insulin 12/13/2023 Assessment & Plan (02/19/2025 11:25 AM EDT): Orders: HEMOGLOBIN A1C; Future ADULT/PEDS OPHTHALMOLOGY/OPTOMETRY REFERRAL OP Food insecurity 12/26/2022 Overview: Per [email or web address] Protocol Major depressive disorder, single episode, [...] diet in detail. Patient declines referral to trial attorney. Orders: Lisinopril 40 MG Oral Tablet; Take [...] as of this encounter (statuses as of 02/19/2025) Resolved Problems Problem Noted Date Diagnosed Date Resolved Date Microalbuminuria due to type 2 diabetes mellitus 01/07/2018 11/18/2022 IUD (intrauterine device) in place 05/15/2017 03/24/2021 Overview (05/15/2017): 02/2015 Obesity, Class I, BMI 30-34.9 02/11/2016 11/18/2022 Depression 08/30/2015 01/03/2018 documented as of this encounter (statuses as of 02/19/2025) Immunizations Name Administration Dates Next Due Covid-19 Ad26, Single Dose (Royal/J&J) 04/06/2021 Hepatitis B, 20+ yrs 08/10/2017,10/26/2016,12/22 PPD 02/19/2025,06/28/2024 Pneumococcal Conjugate Vacci ne, 20-valent ([id number]) 07/31/2023 Pneumococcal Polysaccharide PPV23 (Pneumovax) 01/03/2018 Seasonal [...] 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 file Not on file Not on file documented as of this encounter Plan of Treatment Upcoming Encounters Date Type Department Care Team (Late st Contact Info) Description 02/27/2025 3:40 PM EDT Office Visit Family Practice [facility] [address] [place] [address] Nae Palafox PA-C [address] [place] [address] Pending Results Name Type Priority Associated Diagnoses Date /Time LIPID PANEL WITH DIRECT LDL IF TG IS HIGH Lab Routine Dyslipidemia, goal LDL below 70 02/19/2025 11:38 AM EDT VITAMIN B12 Lab Routine Encounter for long-term (current) use of medications 02/19/2025 11:38 AM EDT HEMOGLOBIN A1C Lab Routine Type 2 diabetes mellitus with diabetic mononeuropathy, without long-term current use of insulin (HCC) 02/19/2025 11:38 AM EDT ALBUMIN / CREATININE RATIO, URINE Lab Routine Encounter for long-term (current) use of medications 02/19/2025 11:40 AM EDT Scheduled Procedures Name Priority Associated Diagnoses Date/Ti me COLONOSCOPY FLEXIBLE PROXIMA L DIAGNOSTIC Recall History of colonic polyps Health Maintenance Due Date Last Done Comments DISCUSS TOBACCO CESSATION (REFER TO SMARTSET #3291) 1981 Depression Monitoring 1993 Diabetic Foot Exam 03/17/2022 03/17/2021, 0 05/19/2020, 03/28/2019, Additional history exists Mammogram 05/30/2023 05/30/2022 Albumin/Creatinine Ratio 09/28/2023 022, 03/17/2021, 08/20/2019, Additional history exists B-12 12/21/2023 12/21/2022, 09/13, 12/28/2021, Additional history exists COVID-19 Vaccine ( season) 2024 04/06/2021 Diabetic Eye Exam 12/13/2024 12/13/2023, , 10/17/2019, Additional history exists HbA1c 12/29/2024 06/28/2024, 02/0 04/2024, 04/19/2023, Additional history exists GFR 06/28/2025 02/19/2025, 06/13, 12/19/2023, Additional history exists Influenza Vaccine (FLU shot) (Season Ended) 2025 07/31/2023, 07/31/2023, 09/14/2020, Additional history exists Colonoscopy 2026 05/06/2022, 04/14, 04/09/2019, Additional history exists Pap Smear 02/06/2027 02/07/2024, 03/13, 07/06/2017, Additional history exists DTap/Tdap Vaccines (2 - Td or Tdap) 05/15/2027 05/15/2017 Lipid Panel 06/02/2027 06/02/2022, 05/0 03/2021, 03/28/2019, Additional history exists Cervical Cancer Screening 02/06/2029 HPV/Co-Test 02/06/2029 02/07/2024 Hepatitis B Vaccine Completed 08/10/2017, 10/26/2016, 12/22/2015 [...] Not on filedocumented as of this encounter Procedures Procedure Name Priority Date/Time Associated Diagnosis Comments BASIC METABOLIC PANEL Routine 02/19/2025 11:38 AM EDT Type 2 diabetes mellitus with hemoglobin A1c goal of less than 7.0% (HCC) documented in this encounter Results * (ABNORMAL) BASIC METABOLIC PANEL (02/19/2025 11:38 AM EDT) BUN 8 6 - 20 mg/dL 02/19/2025 12:45 PM EDT [facility] [place] 56-02 CREATININE 0.7 0.5 - 1.0 mg/dL 02/19/2025 12:45 PM EDT [facility]ORY [facility] [place] 56-02 EGFR >90 >=60 mL/min 02/19/2025 12:45 PM EDT LABORATORY [facility] 56-02 Comment:eGFR is calculated b ased on the CKD-EPI 2020 equation. SODIUM 143 135 - 146 mmol/L 02/19/2025 12:45 PM EDT LAB[facility]ATORY [facility] 56-02 POTASSIUM 4.1 3.5 - 5.1 mmol/L 02/19/2025 12:45 PM EDT [address] CHLORIDE 104 98 - 107 mmol/L 02/19/2025 12:45 PM EDT [address] CO2 29 22 - 32 mmol/L 02/19/2025 12:45 PM EDT [address] ANION GAP 10 7 - 15 mmol/L 02/19/2025 12:45 PM EDT [address] GLUCOSE 150(H) 70 - 120 mg/dL 02/19/2025 12:45 PM EDT [address] CALCIUM 9.7 8.4 - 10.2 mg/dL 02/19/2025 12:45 PM EDT [address] Blood Venous blood specimen / Unknown Venipuncture / Unknown 02/19/2025 11:38 AM EDT 02/19/2025 11:38 AM EDT Nae Palafox PA-C LAB BLOOD ORDERABLES Final Result [place] [address] [place] [address] documented in this encounter Visit Diagnoses Diagnosis [...] screening test Screening examination for pulmonary tuberculosis Dyslipidemia, goal LDL below 70 Other and unspecified hyperlipidemia Encounter for long-term (current) use of medications Encounter for long-term (current) use of other medications Type 2 diabetes mellitus with diabetic mononeuropathy, without long-term current use of insulin (HCC) Type 2 diabetes mellitus with hemoglobin A1c [...]
--- OUTSIDE RECORDS SUMMARY | 2025-03-15 12:58 | External Medical Summary | Summary of Care ---
Author Name Unknown Organization [facility] Address [address] [place] [address] Phone [phone] Care Team Providers Care Log Brander Name Role Phone Unavailable Primary Care Provider Unavailabl e Reason for Visit * Reason Comments Outpatient Testing Encounter Details Date Type Department Care Team (Late st Contact Info) Description 02/19/2025 11:40 AM EDT Laboratory Laboratory [facility] [address] [place] [address] [facility] 200 [facility] [place] [address] Dyslipidemia, goal LDL below 70; Encounter for [...] REFERRAL OP Food insecurity 12/26/2022 Overview: Per [facility] Protocol Major depressive disorder, single episode, [...] diet in detail. Patient declines referral to manufacturing process technician. 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 SODIUM 143 135 - 146 mmol/L 02/19/2025 12:45 PM EDT LAB[facility]ATORY [facility] 56-02 POTASSIUM 4.1 3.5 - 5.1 mmol/L 02/19/2025 12:45 PM EDT [address] CHLORIDE 104 98 - 107 mmol/L 02/19/2025 12:45 PM EDT [address] CO2 29 22 - 32 mmol/L 02/19/2025 12:45 PM EDT [address] ANION GAP 10 7 - 15 mmol/L 02/19/2025 12:45 PM EDT [address] GLUCOSE 150(H) 70 - 120 mg/dL 02/19/2025 12:45 PM EDT [address] CALCIUM 9.7 8.4 - 10.2 mg/dL 02/19/2025 12:45 PM EDT [address] Blood Venous blood specimen / Unknown Venipuncture / Unknown 02/19/2025 11:38 AM EDT 02/19/2025 11:38 AM EDT Nae Palafox PA-C LAB BLOOD ORDERABLES Final Result [place] [address] [place] [address] documented in this encounter Visit Diagnoses Diagnosis [...]
--- OUTSIDE RECORDS SUMMARY | 2025-03-15 12:58 | External Medical Summary | Summary of Care ---
Author Name Unknown Organization [facility] Address [address] [place] [address] Phone [phone] Care Team Providers Care Human Resources Operations Coordinator Name Role Phone Unavailable Primary Care Provider Unavailabl e Reason for Visit * Reason Onset Date Comments Advice 03/06/2025 Not any better Encounter Details Date Type Department Care Team ([facility] st Contact Info) Description 03/06/2025 Telephone [facility] [address] [place] [address] Angela Pelletier PA-C [address] [place] [address] Advice (Not any better) Allergies No known active allergiesdocumented as of this encounter (statuses as of 03/07/2025) Medications OneTouch Verio w/Device KitIndications:T ype 2 [...] or juice. 238 g 02/26/20 25 Active Amoxicillin-Pot Clavulanate 875-125 MG [...] as of this encounter (statuses as of 03/07/2025) Active Problems Problem Noted Date Diagnosed Date Type 2 diabetes mellitus wit h diabetic mononeuropathy, without long-term current use of insulin 12/13/2023 Assessment & Plan (02/19/2025 11:25 AM EDT): Orders: HEMOGLOBIN A1C; Future ADULT/PEDS OPHTHALMOLOGY/OPTOMETRY REFERRAL OP Food insecurity 12/26/2022 Overview: Per [facility] Protocol Major depressive disorder, [...] diet in detail. Patient declines referral to bench grinder. Orders: Lisinopril 40 MG Oral Tablet; Take [...] as of this encounter (statuses as of 03/07/2025) Resolved Problems Problem Noted Date Diagnosed Date Resolved Date Microalbuminuria due to type 2 diabetes mellitus 01/07/2018 11/18/2022 IUD (intrauterine device) in place 05/15/2017 03/24/2021 Overview (05/15/2017): 02/2015 Obesity, Class I, BMI 30-34.9 02/11/2016 11/18/2022 Depression 08/30/2015 01/03/2018 documented as of this encounter (statuses as of 03/07/2025) Immunizations Name Administration Dates Next Due Covid-19 Ad26, Single Dose (Royal/J&J) 04/06/2021 Hepatitis B, 20+ yrs 08/10/2017,10/26/2016,12/22 PPD 02/19/2025,06/28/2024 Pneumococcal Conjugate Vacci ne, 20-valent ([id number]) 07/31/2023 Pneumococcal Polysaccharide PPV23 (Pneumovax) 01/03/2018 Seasonal [...] 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 Pt was seen here 6 d ago and dx w diverticulitis, is taking the meds. When seen she had already had 5 d of constipation Recommended pt go to ER as need to eval that something more is not going on, like obstruction. Pt stated understanding. * Telephone Encounter - Nunu Barber OSA - 03/06/2025 6:45 PM EDT Called and wants advise as she is not feeling any better Please call documented in this encounter Plan of Treatment Upcoming Encounters Date Type Department Care Team (Late st Contact Info) Description 03/18/2025 8:00 AM EDT Office Visit Family Practice [facility] [place] [address] [place] [address] Nae Palafox PA-C [address] [place] [address] 03/26/2025 8:00 AM EDT Telemedicine Virtual, Nutrition Services [address] [place] [address] Martita Hampton, RDN [address] [facility] [place] [address] 03/28/2025 11:00 AM EDT Office Visit Ophthalmology, [place] [address] [address] Conrad Mcadams MD [address] [place] [address] Scheduled Procedures Name Priority Associated Diagnoses Date/Ti [...] 02/19/2025, 06/2023, 09/30/2022, Additional history exists GFR 02/28/2026 02/28/2025, 0 07/2025, 06/28/2024, Additional history exists Colonoscopy 2026 [...]
--- OUTSIDE RECORDS SUMMARY | 2025-03-15 12:58 | External Medical Summary ---
Author Name Unknown Address Unknown Organization K01:[facility] [address] [facility] [address] Laboratory Report Ordering Provider Test Date Status CLARA TRAN 02/28/2025 16:14:22 Final Observation Date Value Abnormality Reference (Units ) Status BUN 02/28/2025 16:14:22 8 6-20 (mg/dL) Final Creatinine 02/28/2025 16:14:22 0.6 0.5-1.0 (mg/dL) Final Glomerular filtration rate/1.73 sq M.predicted [Volume Rate/Area] in Serum, Plasma or Blood by Creatinine-based formula (CKD-EPI) 02/28/2025 16:14:22 >90 >=60 (mL/min) Final eGFR is calculated based on the CKD-EPI 2020 equation. Sodium 02/28/2025 16:14:22 133 Below low normal 135 -146 (mmol/L) Final Potassium 02/28/2025 16:14:22 4.1 3.5-5.1 (m mol/L) Final Cl 02/28/2025 16:14:22 98 98-107 (mm ol/L) Final CO2 02/28/2025 16:14:22 22 22-32 (mmo l/L) Final Anion gap 02/28/2025 16:14:22 13 7-15 (mmol /L) Final Glucose 02/28/2025 16:14:22 169 Above high normal 70 -120 (mg/dL) Final Albumin 02/28/2025 16:14:22 4.1 3.8-5.0 (g /dL) Final AST (Aspartate aminotransferase) 02/28/2025 16:14:22 18 10-35 (U/L) Fin al Results may be falsely eleva nithya due to hemolysis. Alk Phos 02/28/2025 16:14:22 44 35-130 (U/ L) Final Bilirubin, Total 02/28/2025 16:14:22 0.3 <=1 .2 (mg/dL) Final Calcium 02/28/2025 16:14:22 9.2 8.4-10.2 ( mg/dL) Final Protein 02/28/2025 16:14:22 7.3 6.0-8.3 (g /dL) Final ALT (Alanine aminotransferase) 02/28/2025 16:14:22 18 10-35 (U/L) Final Performing Location [facility] [place] [address] [facility] [address]
--- OUTSIDE RECORDS SUMMARY | 2025-03-15 12:58 | External Medical Summary ---
Author Name Unknown Address Unknown Organization K01:[facility]ORATORY [facility] [place] - [address] [facility] [address] Laboratory Report Ordering Provider Test Date Status LOUIE SOSA 02/19/2025 11:38:17 Final Observation Date Value Abnormality Reference (Units ) Status Triglyceride 02/19/2025 11:38:17 106 <=174 ( mg/dL) Final Triglyceride Reference Range s (mg/dL):
<150 Acceptable
150-174 Borderline high
175-499 High
>=500 Very high Cholesterol 02/19/2025 11:38:17 198 <200 (mg /dL) Final Total Cholesterol Reference Ranges (mg/dL):
<200 Desirable
200-239 Borderline high
>=240 High HDL 02/19/2025 11:38:17 60 >49 (mg/dL ) Final HDL Cholesterol Reference Ra nges (mg/dL):
>=60 High (Desirable)
<50 Low (Undesirable) For Females
<40 Low (Undesirable) For Males NON-HDL CHOLESTEROL 02/19/2025 11:38:17 138 <=159 (mg/dL) Final Non-HDL Cholesterol Referenc e Range (mg/dL):
<100 Target level for high risk ASCVD patient
<130 Optimal for general population
130-159 Near optimal for general population
160-189 Borderline High
190-219 High
>=220 Very High LDL, (calculated) 02/19/2025 11:38:17 117 <= 129 (mg/dL) Final LDL Cholesterol Reference Ra nges (mg/dL):
<70 Target level for high risk ASCVD patient
<100 Optimal for general population
100-129 Near optimal for general population
130-159 Borderline high
160-189 High
>=190 Very high
Patient has high LDL cholesterol. Consider screening for Familial Hypercholesterolemia. Performing Location [facility]ATORY [facility] [place] - [address] [facility] [id number]
--- NOTE | 2025-03-15 13:11 | Emergency Department Note ---
Impression & Plan Stroke-like symptoms, Weakness ED Provider Note NAME: MEAGAN DONNELLY AGE: 44 SEX: F : 1980 ARRIVES VIA: Ambulance INFORMANT: Patient, EMS ED PROVIDER(S): Esvin Rey DO CHIEF COMPLAINT: Stroke alert HPI: The patient is a 44-year-old female who presented to the emergency department by ambulance for an evaluation of possible stroke like symptoms. The patient was last seen well at approximately 10 AM by family. She arrives via ambulance for an acute alteration of mental status. The patient has global weakness. The patient is not answering questions. There is no reported trauma. Additional history is obtained from the EMS personnel as well as the family. ROS: See above HPI for pertinent positives & negatives. A total of 10 systems reviewed and were otherwise negative. PAST MEDICAL HISTORY: See Below PAST SURGICAL HISTORY: See Below FAMILY HISTORY: See Below SOCIAL HISTORY: See Below HOME MEDICATIONS: See Below ALLERGIES: See Below VITALS: See Below PHYSICAL EXAMINATION: GENERAL: The patient is awake and alert. She is looking around the room but will not answer questions. EYES: The conjunctivae are clear. The pupils are round and reactive. EARS, NOSE, MOUTH AND THROAT: The nose is without any evidence of any deformity. NECK: The neck is nontender and supple. RESPIRATORY: Normal respiratory effort is noted there is no evidence of wheezing rhonchi or rales CARDIOVASCULAR: Regular rate and rhythm noted there no murmurs rubs or gallops normal S1 normal S2. GASTROINTESTINAL: The abdomen is soft. Abdomen is nontender. MUSCULOSKELETAL/EXTREMITIES: There is no evidence of gross deformity full range of motion is noted in the hips and shoulders. SKIN: There is no obvious evidence of any rash. There are no petechiae, pallor or cyanosis noted. NEUROLOGIC: Patient is awake alert however she will not answer questions. I am unable to assess orientation at this time. Strength was diminished but symmetric. MEDICAL DECISION MAKING: The patient is a 44-year-old female who presented to the emergency department for an evaluation. The patient was made a stroke alert prior to arrival as the onset of symptoms was inside the possible TNK window. The patient's exam was peculiar at first. She did not have any lateralizing symptoms. She was aphasic but she could follow commands. I discussed the patient's laboratory and radiographic studies with her. I discussed her condition with the telestroke neurologist. Ultimately the patient was not found to have any acute process on CT or CT angiography. The patient was found to have a slightly elevated alcohol level after her sister came to the emergency department and told us that she had been drinking. Her alcohol was not overly elevated but her exam continued to improve while she was in the emergency department. I ordered an MRI which does appear to be consistent with some degree of a subacute stroke. For this reason I [facility] The patient does not appear to have any signs of large vessel occlusion. At this time she is outside the TNK window. Her exam was reassuring and symptoms have improved significantly. Triage Nursing notes reviewed. Prior medical records reviewed Vital Signs: reviewed and remarkable for elevated blood pressure. Differential diagnosis: Infection, dehydration, metabolic abnormality, hypo/hyperglycemia, electrolyte disturbance, anemia, hypoxia, cardiac sources, intracerebral event, toxicologic, neurologic, as well as other pathologies. ER treatment provided: See below Diagnostics interpreted by me: ECG: EKG was obtained in the emergency department. My interpretation is normal sinus rhythm at [address] abnormalities are noted. This was compared to a tracing from February 16, 2025. No changes were noted. Cardiac Monitoring: An order was placed for continuous cardiac monitoring. The monitor shows a rate of 88 bpm with sinus rhythm. Laboratory studies: As stated above and show below. Imaging studies: See below. Radiographic imaging was reviewed by myself Consultation(s): I discussed this case with Dr. Toledo who is on-call for the [facility] neurology group. I discussed this case with Dr Davey who was customer [facility] ED COURSE: Procedures: none Critical Care: I have personally spent greater than 35 minutes of critical care time in the direct management of this patient. This includes bedside care, interpretation of diagnostic studies, and testing, discussion with consultants, patient, and family members, and other required patient management activities. This 35 minutes is in excess of all separately billable procedures. Past Med/Surg History Problem List (Updated 03/15/25 @ 18:00 by Madelin Singh PA-C) DM II (diabetes mellitus, type II), controlled HLD (hyperlipidemia) Tobacco use Alcohol use Stroke-like symptoms CVA (cerebral vascular accident) Lightheadedness Hyperglycemia (Acute) Hypomagnesemia (Acute) Abnormal angiogram of head (Acute) Vertigo (Acute) Ectopic (Acute) COVID-19 (Acute) Sprain of right foot (Acute) Medical History (Updated 03/15/25 @ 18:00 by Madelin Singh PA-C) Diabetes Hypertension Surgical History (Updated 03/15/25 @ 18:01 by Madelin Singh PA-C) History of delivery 2006, 2012, 2013 Hx of colonoscopy History of carpal tunnel surgery Family History (Updated 03/15/25 @ 18:02 by Madelin Singh PA-C) Mother Diabetes Hypertension Kidney disease Brother Hypertension Heart disease Social History Smoking Status: Current every day smoker Tobacco Type: Cigarettes Second Hand Exposure: No; Do You Dip or Chew Tobacco: No; Hx Alcohol Use: No Hx Substance Use: No Preferred Language: Kenyan Communication Ability: Effective Home Support Worker Required: No Beliefs That Will Affect Care: None Current Living Situation: Family Feels Safe at Home: Yes Assistive Devices: None Allergies Allergies Allergy/AdvReac Type Severity Reaction Status Date / Time No Known Allergies Allergy Verified 03/15/25 16:30 Home Meds Home Medications Medication Instructions Recorded Confirmed lisinopril 40 mg tablet 40 mg PO QAM 11/22/18 03/15/25 metformin 500 mg tablet,extended 1,000 mg PO QAM 11/22/18 03/15/25 release 24 hr metoprolol succinate 100 mg 100 mg PO QAM 11/22/18 03/15/25 tablet,extended release 24 hr albuterol sulfate 90 mcg/actuation 2 puff inhalation Q4H PRN Wheezing 09/21/22 03/15/25 aerosol inhaler amlodipine 5 mg tablet 5 mg PO QAM 09/21/22 03/15/25 metoprolol succinate 50 mg 50 mg PO QAM 09/21/22 03/15/25 tablet,extended release 24 hr hydralazine 25 mg tablet 25 mg PO DAILY 03/01/23 03/15/25 hydrochlorothiazide 25 mg tablet 25 mg PO QAM 03/15/25 03/15/25 Results & Data (ED) Vital Signs Vital Signs - 24 hr 03/15/25 12:49 03/15/25 12:49 03/15/25 13:33 Temperature 36.4 C L Temperature Source Oral Pulse Rate 85 82 Pulse Rate [Apical] Pulse Rhythm [Apical] Respiratory Rate 20 15 Respiratory Effort / Characteristics Non-Labored Spontaneous Respiratory Depth Normal Respiratory Pattern Regular Blood Pressure 139/85 158/106 H Blood Pressure [Left Arm] Blood Pressure Mean 103 123 Blood Pressure Mean [Left Arm] Blood Pressure Position Sitting Pulse Oximetry 95 95 95 Oxygen Delivery Method Room Air Room Air Room Air Sepsis Recent Fever Within 48 Hours No Sepsis New/Unexplained Change in Mental Status N/A Sepsis Action Taken by Nursing No Action Required 03/15/25 13:40 03/15/25 16:40 03/15/25 17:45 Temperature Temperature Source Pulse Rate 83 88 Pulse Rate [Apical] 78 Pulse Rhythm [Apical] Respiratory Rate 11 L Respiratory Effort / Characteristics Respiratory Depth Respiratory Pattern Blood Pressure Blood Pressure [Left Arm] 145/91 H Blood Pressure Mean Blood Pressure Mean [Left Arm] 109 Blood Pressure Position Pulse Oximetry 99 Oxygen Delivery Method Room Air Sepsis Recent Fever Within 48 Hours Sepsis New/Unexplained Change in Mental Status Sepsis Action Taken by Nursing 03/15/25 18:00 03/15/25 19:02 Temperature Temperature Source Pulse Rate Pulse Rate [Apical] 85 82 Pulse Rhythm [Apical] Regular Respiratory Rate 16 17 Respiratory Effort / Characteristics Respiratory Depth Normal Respiratory Pattern Blood Pressure Blood Pressure [Left Arm] 151/113 H 160/113 H Blood Pressure Mean Blood Pressure Mean [Left Arm] 125 128 Blood Pressure Position Pulse Oximetry 96 96 Oxygen Delivery Method Room Air Room Air Sepsis Recent Fever Within 48 Hours Sepsis New/Unexplained Change in Mental Status Sepsis Action Taken by [facility] Medications Current Medication List: was personally reviewed by me Laboratory Data Attestation: I reviewed the patient's lab results. 03/15/25 13:10 03/15/25 13:10 Lab Results 03/15/25 03/15/25 03/15/25 Range/Units 13:09 13:10 13:15 WBC 7.86 (4.8-10.8) K/ul RBC 5.14 (4.20-5.40) M/uL Hgb 13.6 (12.0-16.0) g/dl Hct 40.2 (37.0-47.0) % MCV 78.2 L (80.0-100.0) fL MCH 26.5 (25.0-34.0) pg MCHC 33.8 (32.0-36.0) g/dL RDW Std Deviation 41.3 (36.4-46.3) fL RDW Coeff of Kd 14.5 (11.5-14.5) % Plt Count 323 (130-400) K/uL MPV 11.0 (9.4-12.4) fL Immature Gran % (Auto) 0.3 % Neut % (Auto) 47.3 % Lymph % (Auto) 41.6 % [place] % (Auto) 8.0 % Eos % (Auto) 1.1 % Baso % (Auto) 1.7 % Neut # (Auto) 3.72 (1.40-6.50) K/uL Lymph # (Auto) 3.27 (1.20-3.40) K/uL [place] # (Auto) 0.63 H (0.11-0.59) K/uL Eos # (Auto) 0.09 (0.00-0.50) K/uL Baso # (Auto) 0.13 (0.00-0.20) K/uL Immature Gran # (Auto) 0.02 (0.01-0.20) K/uL PT 10.9 (9.0-12.0) Seconds INR 1.0 (0.9-1.1) APTT 23 (21-31) Seconds PTT Ratio 0.9 Sodium 138 (136-145) mmol/L Potassium 3.3 L (3.5-5.1) mmol/L Chloride 100 (98-107) mmol/L Carbon Dioxide 26 (21-32) mmol/L Anion Gap 12 H (3-11) BUN 10 (6-23) mg/dl Creatinine 0.67 (0.6-1.2) mg/dl Est Cr Clr Drug Dosing 135.1 ml/min eGFR 111.15 BUN/Creatinine Ratio 14.9 (10-20) Glucose 160 H (70-99(Fasting)) mg/dl POC Glucose 163 H (70-99) mg/dl Calcium 8.5 L (8.6-10.3) mg/dl Magnesium 1.7 (1.7-2.4) mg/dl Total Bilirubin 0.3 (0.2-1.0) mg/dl AST 25 (13-39) U/L ALT 23 (7-52) U/L Alkaline Phosphatase 35 (34-104) U/L Troponin I High Sens 5.7 (0-14) pg/ml Total Protein 7.2 (6.0-8.3) gm/dl Albumin 3.8 (3.4-5.0) gm/dl Globulin 3.4 (2.5-4.0) gm/dl Albumin/Globulin Ratio 1.1 (0.9-2) HCG, Qual Negative (Negative) Urine Color Urine Appearance (Clear) Urine pH (4.5-7.5) Ur Specific [place] (1.000-1.030) Urine Protein (Negative) Urine Glucose (UA) (Negative) Urine Ketones (Negative) Urine Blood (Negative) Urine Nitrite (Negative) Urine Bilirubin (Negative) Urine Urobilinogen (Negative) Ur Leukocyte Esterase (Negative) Urine WBC (Auto) (0-5) /hpf Urine RBC (Auto) (0-2) /hpf U Hyaline Cast (Auto) (0-2) /lpf U Epithel Cells (Auto) (0-2) /hpf Urine Bacteria (Auto) (None Seen) Urine Opiates Screen (Neg) Ur Methadone, Qual (Neg) Urine Fentanyl Screen (Neg) Urine Barbiturates (Neg) Ur Phencyclidine (PCP) (Neg) U Amphetamin/Meth Scrn (Neg) MDMA (Ecstasy) Screen (Neg) U Benzodiazepines Scrn (Neg) Ur Cocaine Metabolite (Neg) U Marijuana (THC) Screen (Neg) Ethyl Alcohol mg/dL 190.5 H (<10.0) mg/dl 03/15/25 03/15/25 Range/Units 15:17 16:43 WBC (4.8-10.8) K/ul RBC (4.20-5.40) M/uL Hgb (12.0-16.0) g/dl Hct (37.0-47.0) % MCV (80.0-100.0) fL MCH (25.0-34.0) pg MCHC (32.0-36.0) g/dL RDW Std Deviation (36.4-46.3) fL RDW Coeff of Kd (11.5-14.5) % Plt Count (130-400) K/uL MPV (9.4-12.4) fL Immature Gran % (Auto) % Neut % (Auto) % Lymph % (Auto) % [place] % (Auto) % Eos % (Auto) % Baso % (Auto) % Neut # (Auto) (1.40-6.50) K/uL Lymph # (Auto) (1.20-3.40) K/uL [place] # (Auto) (0.11-0.59) K/uL Eos # (Auto) (0.00-0.50) K/uL Baso # (Auto) (0.00-0.20) K/uL Immature Gran # (Auto) (0.01-0.20) K/uL PT (9.0-12.0) Seconds INR (0.9-1.1) APTT (21-31) Seconds PTT Ratio Sodium (136-145) mmol/L Potassium (3.5-5.1) mmol/L Chloride (98-107) mmol/L Carbon Dioxide (21-32) mmol/L Anion Gap (3-11) BUN (6-23) mg/dl Creatinine (0.6-1.2) mg/dl Est Cr Clr Drug Dosing ml/min eGFR BUN/Creatinine Ratio (10-20) Glucose (70-99(Fasting)) mg/dl POC Glucose 129 H (70-99) mg/dl Calcium (8.6-10.3) mg/dl Magnesium (1.7-2.4) mg/dl Total Bilirubin (0.2-1.0) mg/dl AST (13-39) U/L ALT (7-52) U/L Alkaline Phosphatase (34-104) U/L Troponin I High Sens (0-14) pg/ml Total Protein (6.0-8.3) gm/dl Albumin (3.4-5.0) gm/dl Globulin (2.5-4.0) gm/dl Albumin/Globulin Ratio (0.9-2) HCG, Qual (Negative) Urine Color Yellow Urine Appearance Clear (Clear) Urine pH 5.5 (4.5-7.5) Ur Specific [place] > 1.045 H (1.000-1.030) Urine Protein 1+ H (Negative) Urine Glucose (UA) Negative (Negative) Urine Ketones Negative (Negative) Urine Blood 3+ H (Negative) Urine Nitrite Negative (Negative) Urine Bilirubin Negative (Negative) Urine Urobilinogen Negative (Negative) Ur Leukocyte Esterase Negative (Negative) Urine WBC (Auto) 0-5 (0-5) /hpf Urine RBC (Auto) >20 H (0-2) /hpf U Hyaline Cast (Auto) 0-2 (0-2) /lpf U Epithel Cells (Auto) 0-2 (0-2) /hpf Urine Bacteria (Auto) None Seen (None Seen) Urine Opiates Screen Neg (Neg) Ur Methadone, Qual Neg (Neg) Urine Fentanyl Screen Neg (Neg) Urine Barbiturates Neg (Neg) Ur Phencyclidine (PCP) Neg (Neg) U Amphetamin/Meth Scrn Neg (Neg) MDMA (Ecstasy) Screen Neg (Neg) U Benzodiazepines Scrn Neg (Neg) Ur Cocaine Metabolite Neg (Neg) U Marijuana (THC) Screen Neg (Neg) Ethyl Alcohol mg/dL (<10.0) mg/dl Administered Medications Discontinued Medications Aspirin (Aspirin Chew 324 Mg) 324 mg PO ONE ONE Stop: 03/15/25 17:57 Last Admin: 03/15/25 18:17 Dose: 324 mg Documented By: PEDRO Promethazine HCl (Phenergan) 6.25 mg in 50.25 mls @ 201 mls/hr IV NOW STA Stop: 03/15/25 18:22 Last Admin: 03/15/25 19:02 Dose: 201 mls/hr Documented By: PEDRO Acetaminophen (Ofirmev) 1,000 mg in 100 mls @ 400 mls/hr IV NOW STA Stop: 03/15/25 18:22 Last Infusion: 03/15/25 18:53 Dose: Infused Documented By: Admin: 03/15/25 18:18 Dose: 400 mls/hr Documented By: PEDRO Ioversol (Optiray 320 125ml) 119 ml IV ONCE ONE Stop: 03/15/25 12:58 Last Admin: 03/15/25 12:57 Dose: 119 ml Documented By: EDK Imaging Data Attestation: I personally reviewed and interpreted this imaging study as follows: My Impression: 1 view chest x-ray was obtained in the emergency department. My interpretation is no free air or definite infiltrate, final report below. CT of the head was obtained in the emergency department. My interpretation is no intracranial hemorrhage or mass effect, final report below. Radiologist's Impression: Chest X-Ray 03/15/25 12:52 Clinical History: Possible stroke Technique: A frontal view of the chest was obtained Comparison is made to the prior examination dated 02/16/2025 Findings: There are no confluent pulmonary infiltrates. The heart size is within normal limits. No pleural effusion or pneumothorax is seen. There is no definite pulmonary nodule. No fracture is noted. No foreign body is seen Impression: No active disease Electronically signed by Max Ling 03-15-2025 13:[address] 03/15/25 12:52 Clinical History: Possible stroke. Technique: Axial computed tomography images were obtained of the brain from the vertex to the skull base without intravenous contrast. Findings: There is no sign of intracranial hemorrhage. There is normal perez-white matter differentiation with no sign of acute or old infarction. No midline shift or other form of herniation is identified. There is no hydrocephalus. No obvious mass lesion is seen on this noncontrast examination. The visualized portions of the orbits and paranasal sinuses appear unremarkable. The mastoid air cells appear clear Impression: Unremarkable noncontrast CT of the brain These findings were discussed with Dr. Rey at 1:10 PM and 03/15/2025 Electronically signed by Max Ling 03-15-2025 13:11 PM Head CTA 03/15/25 12:52 Clinical history: Possible stroke Technique: Axial computed tomography images were obtained of the brain after the administration of intravenous contrast according to the CT angiogram protocol Comparison is made to the prior examination dated 01/22/2024 Findings: No definite stenosis or aneurysm is seen of the anterior, middle, or posterior cerebral artery circulations. The visualized vertebral arteries and the basilar artery appear unremarkable. As before, the distal right vertebral artery is diminutive, likely on a congenital basis. Impression: Unremarkable CTA of the brain These findings were discussed with Dr. Rey at 1:10 PM and 03/15/2025 Electronically signed by Max Ling 03-15-2025 13:12 PM Neck CTA 03/15/25 12:52 Clinical history: Possible stroke Technique: Axial computed tomography images were obtained of the neck after the administration of intravenous contrast according to the CT angiogram protocol Comparison is made to the prior CTA dated 01/22/2024 Findings: No stenosis is seen of the common carotid arteries bilaterally. The carotid bulbs appear normal. The remainder of the internal carotid arteries appear patent bilaterally. No stenosis of the external carotid arteries is seen The left vertebral artery is dominant. No definite vertebral artery stenosis is seen. The visualized thoracic aorta appears unremarkable Impression: Unremarkable CTA of the neck Electronically signed by Max Ling 03-15-2025 13:14 PM Brain MRI 03/15/25 13:45 EXAM: MR brain wo con CLINICAL HISTORY: stroke-like symptoms. TECHNIQUE: MRI of the brain was performed without contras,t with multiplanar sequences obtained. COMPARISON: Comparison is made with prior MR dated 01/23/2024. FINDINGS: Brain Parenchyma: Right light radiata high T2/FLAIR signal focus, with mild high DWI, mild low ADC, denoting acute infarction. Interval new patch of bright FLAIR and T2 signal in the posterior limb right internal capsule Stable rest of the periventricular bright foci of microvascular ischemic/ migraine related. Normal perez-white matter differentiation. No mass lesions or focal cortical abnormalities identified. Ventricles and Sulci: Normal size and configuration of the lateral ventricles, third ventricle, and fourth ventricle. No evidence of hydrocephalus or ventriculomegaly. Sylvian fissures, sulci, and cisterns are within normal limits. Posterior Fossa: Cerebellum and brainstem appear normal without evidence of mass lesions or signal abnormalities. Cranial Nerves: Normal course and appearance of cranial nerves identified. Vessels: No evidence of vascular malformations or aneurysms. Intracranial arteries and veins appear normal without evidence of stenosis or occlusion. Orbits and Skull Base: Orbits and skull base structures are normal without evidence of abnormalities. IMPRESSION: 1. Right light radiata high T2/FLAIR signal focus, with mild diffuse restriction, denoting acute infarction. 2. Interval new foci and patches of altered signal in the right centrum semiovale (subacute ischemic), and right internal capsule (chronic ischemic). 3. Unchanged rest of white matter, periventricular microvascular changes. Electronically signed by Nura Varghese 03-15-2025 5:37 PM Discharge Plan Visit Data Chief Complaint: Stroke Alert ED Provider: Esvin Rey Discharge Problem: Stroke-like symptoms, Weakness Patient Disposition: Being Evaluated by Hospitalist Condition: Good Forms Stand Alone Forms: My [facility] [employer] Prescriptions Prescriptions: No Action metoprolol succinate 100 mg tablet extended release 24 hr 100 mg PO QAM Rx Instructions: TOTAL DOSE 150 MG--TAKES WITH 50 MG TAB. lisinopril 40 mg tablet 40 mg PO QAM metformin 500 mg tablet extended release 24 hr 1,000 mg PO QAM Hold Instructions: Resume on 01/25/24. metoprolol succinate 50 mg tablet extended release 24 hr 50 mg PO QAM Rx Instructions: TOTAL DOSE 150 MG--TAKES WITH 100 MG TAB. amlodipine 5 mg tablet 5 mg PO QAM albuterol sulfate 90 mcg/actuation HFA aerosol inhaler 2 puff INHALATION Q4H PRN (Reason: Wheezing) hydralazine 25 mg tablet 25 mg PO DAILY Rx Instructions: Per pt 25mg by mouth daily. However, per pharmacy this hasn't been filled since mid - 2023. Thinks HCTZ replaced this medication. hydrochlorothiazide 25 mg tablet 25 mg PO QAM Referrals Referrals: Nae Palafox PA-C [Primary Care Provider] - 03/18/25 8:00 am (Nae Palafox PA-C [facility]) PCP,NO [Physician] -
--- NOTE | 2025-03-15 13:15 | CT Scan Report ---
Clinical history: Possible stroke Technique: Axial computed tomography images were obtained of the neck after the administration of intravenous contrast according to the CT angiogram protocol Comparison is made to the prior CTA dated 01/22/2024 Findings: No stenosis is seen of the common carotid arteries bilaterally. The carotid bulbs appear normal. The remainder of the internal carotid arteries appear patent bilaterally. No stenosis of the external carotid arteries is seen The left vertebral artery is dominant. No definite vertebral artery stenosis is seen. The visualized thoracic aorta appears unremarkable Impression: Unremarkable CTA of the neck Electronically signed by Max Ling 03-15-2025 13:14 PM
[2025-03-15 13:37] LABS: Basophils # (auto) 0.13 K/uL (0.00-0.20); Basophils % (auto) 1.7 %; Eosinophils # (auto) 0.09 K/uL (0.00-0.50); Eosinophils % (auto) 1.1 %; Hematocrit (blood only) 40.2 % (37.0-47.0); Hemoglobin 13.6 g/dl (12.0-16.0); Immature Granulocytes # (auto) 0.02 K/uL (0.01-0.20); Immature Granulocytes % (auto) 0.3 %; Lymphocytes # (auto) 3.27 K/uL (1.20-3.40); Lymphocytes % (auto) 41.6 %; Mean Corpuscular Hemoglobin 26.5 pg (25.0-34.0); Mean Corpuscular Hgb Conc 33.8 g/dL (32.0-36.0); Mean Corpuscular Volume 78.2 fL (80.0-100.0); Monocytes # (auto) 0.63 K/uL (0.11-0.59); Neutrophils # (auto) 3.72 K/uL (1.40-6.50); Neutrophils % (auto) 47.3 %; Platelet Count 323 K/uL (130-400); RDW Coefficient of Variation 14.5 % (11.5-14.5); RDW Standard Deviation 41.3 fL (36.4-46.3); Red Blood Count 5.14 M/uL (4.20-5.40); White Blood Count 7.86 K/ul (4.8-10.8)
--- NOTE | 2025-03-15 13:38 | XRay Report ---
Clinical History: Possible stroke Technique: A frontal view of the chest was obtained Comparison is made to the prior examination dated 02/16/2025 Findings: There are no confluent pulmonary infiltrates. The heart size is within normal limits. No pleural effusion or pneumothorax is seen. There is no definite pulmonary nodule. No fracture is noted. No foreign body is seen Impression: No active disease Electronically signed by Max Ling 03-15-2025 13:38 PM
[2025-03-15 13:50] LABS: Pregnancy Test, Serum Negative (Negative)
[2025-03-15 13:55] LABS: Albumin Globulin Ratio 1.1 (0.9-2); Albumin Level 3.8 gm/dl (3.4-5.0); BUN Creatinine Ratio 14.9 (10-20); Bilirubin,Total 0.3 mg/dl (0.2-1.0); Calcium 8.5 mg/dl (8.6-10.3); Creatinine Clr Calc Pharmacy 135.1 ml/min; Globulin 3.4 gm/dl (2.5-4.0); Magnesium 1.7 mg/dl (1.7-2.4); Potassium 3.3 mmol/L (3.5-5.1); Total Protein 7.2 gm/dl (6.0-8.3)
[2025-03-15 14:02] LABS: Troponin I High Sensitivity 5.7 pg/ml (0-14)
[2025-03-15 14:04] LABS: Partial Thromboplastin Ratio 0.9; Partial Thromboplastin Time 23 Seconds (21-31); Prothrombin Time 10.9 Seconds (9.0-12.0)
[2025-03-15 17:17] LABS: Appearance Urine Clear (Clear); Bacteria Urine Automated None Seen (None Seen); Bilirubin Urine Negative (Negative); Blood Urine 3+ (Negative); Cast Urine Automated 0-2 /lpf (0-2); Color Urine Yellow; Epithelial Cell Urine Auto 0-2 /hpf (0-2); Glucose Urine UA Negative (Negative); Ketones Urine Negative (Negative); Leukocyte Esterase Urine Negative (Negative); Nitrite Urine Negative (Negative); Protein Urine 1+ (Negative); RBC Urine Automated >20 /hpf (0-2); Specific Gravity Urine > 1.045 (1.000-1.030); Urobilinogen Urine Negative (Negative); WBC Urine Automated 0-5 /hpf (0-5); pH Urine 5.5 (4.5-7.5)
--- NOTE | 2025-03-15 17:37 | Magnetic Resonance Report ---
EXAM: MR brain wo con CLINICAL HISTORY: stroke-like symptoms. TECHNIQUE: MRI of the brain was performed without contras,t with multiplanar sequences obtained. COMPARISON: Comparison is made with prior MR dated 01/23/2024. FINDINGS: Brain Parenchyma: Right light radiata high T2/FLAIR signal focus, with mild high DWI, mild low ADC, denoting acute infarction. Interval new patch of bright FLAIR and T2 signal in the posterior limb right internal capsule Stable rest of the periventricular bright foci of microvascular ischemic/ migraine related. Normal perez-white matter differentiation. No mass lesions or focal cortical abnormalities identified. Ventricles and Sulci: Normal size and configuration of the lateral ventricles, third ventricle, and fourth ventricle. No evidence of hydrocephalus or ventriculomegaly. Sylvian fissures, sulci, and cisterns are within normal limits. Posterior Fossa: Cerebellum and brainstem appear normal without evidence of mass lesions or signal abnormalities. Cranial Nerves: Normal course and appearance of cranial nerves identified. Vessels: No evidence of vascular malformations or aneurysms. Intracranial arteries and veins appear normal without evidence of stenosis or occlusion. Orbits and Skull Base: Orbits and skull base structures are normal without evidence of abnormalities. IMPRESSION: 1. Right light radiata high T2/FLAIR signal focus, with mild diffuse restriction, denoting acute infarction. 2. Interval new foci and patches of altered signal in the right centrum semiovale (subacute ischemic), and right internal capsule (chronic ischemic). 3. Unchanged rest of white matter, periventricular microvascular changes. Electronically signed by Nura Varghese 03-15-2025 5:37 PM
[2025-03-15 18:08] LABS: Amphetamines+Metham, Urine Neg (Neg); Barbiturates, Urine Neg (Neg); Benzodiazepine, Urine Neg (Neg); Cocaine, Urine Neg (Neg); Fentanyl, Urine Neg (Neg); MDMA (Ecstacy), Urine Neg (Neg); Marijuana, Urine Neg (Neg); Methadone, Urine Neg (Neg); Opiate, Urine Neg (Neg); Phencyclidine, Urine Neg (Neg)
--- NOTE | 2025-03-15 18:11 | History & Physical Report ---
Date of Service March 15, 2025 Assessment & Plan (1) CVA (cerebral vascular accident): (2) Stroke-like symptoms: (3) Alcohol use: (4) Tobacco use: (5) HLD (hyperlipidemia): (6) DM II (diabetes mellitus, type II), controlled: Plan Acute, Subacute and Chronic CVA - Admit to PCU for observation - Stroke order set completed, no indication for thrombolytic - Patient underwent CTA of the head and neck were unremarkable in the ER. - Brain MRI which shows right cornea radiata high signal focus with mild diffuse restriction, denoting an acute infarction. Interval new foci of patches of the altered signal in the right centrum semimobile (subacute ischemic), and right internal capsule (chronic ischemic). Unchanged for rest of white matter, periventricular microvascular changes. - Tele-neurology contacted by the ER prior to MRI findings - Consult neurology - Start aspirin and plavix and atorvastatin for plaque stabilization now - Will allow permissive hypertension with SBP 140-170 - she is on multiple antihypertensives, see below. - PT/OT consults placed - Recent cholesterol panel was obtained on 02/19/25 with Total cholesterol - 198, LDL 117, HDL 60, triglycerides 106 : not previously on statin therapy T wave inversion, inferior leads Concern for underlying inferior ischemia HTN - Will continue metoprolol succ 150 daily, hold amlodpine, hctz, lisinopril for now to allow for permissinve htn. - Daily ekg, repeat tomorrow - Check Echo - Troponins trending, pending DM II - Last A1C 7.7 on 02/19/25 - Holding metformin at this time, continue ISS with accuchecks achs for now - Victoza was ordered as outpt but states she did not start it. 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 - minimal Po intake x 4 days, alcohol use/binge drinking - Denies homicidal and suicidal ideations - Not on any antidepressant medications - would possibly benefit from such - Would recommend outpatient therapy after discharge if pt is willing to attend, CM to provide resources for counseling/therapy prior to dc DVT ppx: heparin subq Lines: 1 PIV RUE FEN/GI: Heart healthy diet CODE: Full code Dispo: From home, likely to remain in the hospital x 1-2 days I spent a total of 75 minutes with greater than 50% of that time face to face with the patient, personally reviewing all current laboratories, imaging studies, past medication reconciliation, outpatient chart review, and discussion with specialists to collaborate care for the patient excluding time spent in the performance of separately billed services or time spent by another provider/QHP. Please see attending documentation for corrections and/or additions. History of Present Illness Chief Complaint: [facility] Primary Care Provider: Nae Palafox PA-C This is a 44-year-old female with PMHx of HTN, HLD, DM type II, tobacco abuse, alcohol use, moderate to severe depressive disorder, CKD who presented to the hospital as a stroke alert with complaints of strokelike symptoms including: slurred speech, left sided leg weakness, left eye blurred vision. She has difficulty recalling events of earlier today. Children x 3 are sitting at bedside and state she was in normal state of health around 10 am and developed slurring of speech around noon. Oldest child was home at 2 pm and notes that when he arrived home she had increased weakness and had difficulty getting up out of bed. Pt reports poor Po intake over the past 4 days due to significant stress regarding relationship issues with boyfriend. She also admits this is why she was drinking alcohol this morning. Pt does not offer up kind of alcohol/amount information as she says she is having issues remembering. Denies any thoughts of homicide or suicide, denies any drug use. She does smoke cigarettes, 1 ppd for many years. Pt was recently on a course of antibiotics for diverticulitis finishing around 2 weeks ago. Denies issues with abdominal complaints since then. Pt children live at home with her, ages 21, 12 and 10. The are present at bedside and support the history with timing. Pt reports mother had cva at unknown age. Patient underwent CTA of the head and neck were unremarkable in the ER. She underwent a brain MRI which shows right cornea radiata high signal focus with mild diffuse restriction, denoting an acute infarction. Interval new foci of patches of the altered signal in the right centrum semimobile (subacute ischemic), and right internal capsule (chronic ischemic). Unchanged for rest of white matter, periventricular microvascular changes. Allergies Allergy/AdvReac Type Severity Reaction Status Date / Time No Known Allergies Allergy Verified 03/15/25 16:30 Home Medications Medication Instructions Recorded Confirmed Type lisinopril 40 mg tablet 40 mg PO QAM 11/22/18 03/15/25 History metformin 500 mg tablet,extended 1,000 mg PO QAM 11/22/18 03/15/25 History release 24 hr metoprolol succinate 100 mg 100 mg PO QAM 11/22/18 03/15/25 History tablet,extended release 24 hr albuterol sulfate 90 mcg/actuation 2 puff inhalation Q4H PRN Wheezing 09/21/22 03/15/25 History aerosol inhaler amlodipine 5 mg tablet 5 mg PO QAM 09/21/22 03/15/25 History metoprolol succinate 50 mg 50 mg PO QAM 09/21/22 03/15/25 History tablet,extended release 24 hr hydralazine 25 mg tablet 25 mg PO DAILY 03/01/23 03/15/25 History hydrochlorothiazide 25 mg tablet 25 mg PO QAM 03/15/25 03/15/25 History Past Med/Surg History Problem List (Updated 03/15/25 @ 18:00 by Madelin Singh PA-C) DM II (diabetes mellitus, type II), controlled HLD (hyperlipidemia) Tobacco use Alcohol use Stroke-like symptoms CVA (cerebral vascular accident) Lightheadedness Hyperglycemia (Acute) Hypomagnesemia (Acute) Abnormal angiogram of head (Acute) Vertigo (Acute) Ectopic (Acute) COVID-19 (Acute) Sprain of right foot (Acute) Medical History (Updated 03/15/25 @ 18:00 by Madelin Singh PA-C) Diabetes Hypertension Surgical History (Updated 03/15/25 @ 18:01 by Madelin Singh PA-C) History of delivery 2006, 2012, 2013 Hx of colonoscopy History of carpal tunnel surgery Family History (Updated 03/15/25 @ 18:02 by Madelin Singh PA-C) Mother Diabetes Hypertension Kidney disease Brother Hypertension Heart disease Social History Smoking Status: Current every day smoker Tobacco Type: Cigarettes Second Hand Exposure: No; Do You Dip or Chew Tobacco: No; Hx Alcohol Use: No Hx Substance Use: No Preferred Language: Irish Communication Ability: Effective Purchasing And Claims Supervisor Required: No Beliefs That Will Affect Care: None Current Living Situation: Family Feels Safe at Home: Yes Assistive Devices: None Review of Systems Review of Systems: Constitutional: No fever, sweats or chills Eyes: No diplopia, no worsening, + blurred vision left eye this morning as per HPI. ENT: normal hearing, no trouble swallowing, passed beside swallow evaluation. Respiratory: No cough, sputum, dyspnea at rest or on exertion Cardiovascular: No chest pain, tightness or palpitations Abdomen: No pain, nausea, vomiting, diarrhea or constipation Musculoskeletal: No joint pain, calf pain, swelling Neurologic: No weakness, numbness/tingling, or balance problems Psychiatric: No anxiety or depression Skin: No rash or itch Physical Exam Physical Exam: General: awake, alert, no apparent distress, black, obese female, flat affect, tearful at times Head: Normocephalic, atraumatic ENT: PERRL, EOMI, no pharyngeal exudate, mucous membranes moist Chest: Clear to auscultation but decreased, on room air, no adventitious breath sounds Cardiac: Regular rate and rhythm, no murmur, no JVD, normal peripheral pulses, good capillary refill Abdominal: NABS x 4 quadrants, soft, nondistended, nontender to palpation, no rebound or guarding Extremities: Normal inspection, no peripheral edema or erythema, calfs nontender to palpation Psych: flat affect, tearful at times. Denies homicidal or suicidal ideations Neuro: AAO x 3, strength RUE and RLE rated 5/5, LUE with 3-4 trimming operator strength but can raise arms above head so rated 4/5, and LLE with weakness, rated 2/5 in lower extremity with dorsiflexion and states she is unable to bend the left knee, speech is clear, no peripheral sensory deficits, had difficulty performing smile to show teeth, no specific asymmetry or facial droop. Results & Data Results & Data Vital Signs (Past 12 Hours) Vital Signs Temp Pulse Resp BP Pulse Ox O2 Del Method 03/15/25 17:45 88 03/15/25 13:40 83 03/15/25 13:33 82 15 158/106 H 95 Room Air 03/15/25 12:49 95 Room Air 03/15/25 12:49 36.4 C L 85 20 139/85 95 Room Air Laboratory Results 03/15/25 03/15/25 03/15/25 16:43 15:17 13:15 WBC RBC Hgb Hct MCV MCH MCHC RDW Std Deviation RDW Coeff of Kd Plt Count MPV Immature Gran % (Auto) Neut % (Auto) Lymph % (Auto) [place] % (Auto) Eos % (Auto) Baso % (Auto) Neut # (Auto) Lymph # (Auto) [place] # (Auto) Eos # (Auto) Baso # (Auto) Immature Gran # (Auto) PT INR APTT PTT Ratio Sodium Potassium Chloride Carbon Dioxide Anion Gap BUN Creatinine Est Cr Clr Drug Dosing eGFR BUN/Creatinine Ratio Glucose POC Glucose 129 H Calcium Magnesium Total Bilirubin AST ALT Alkaline Phosphatase Troponin I High Sens Total Protein Albumin Globulin Albumin/Globulin Ratio HCG, Qual Urine Color Yellow Urine Appearance Clear Urine pH 5.5 Ur Specific Continental > 1.045 H Urine Protein 1+ H Urine Glucose (UA) Negative Urine Ketones Negative Urine Blood 3+ H Urine Nitrite Negative Urine Bilirubin Negative Urine Urobilinogen Negative Ur Leukocyte Esterase Negative Urine WBC (Auto) 0-5 Urine RBC (Auto) >20 H U Hyaline Cast (Auto) 0-2 U Epithel Cells (Auto) 0-2 Urine Bacteria (Auto) None Seen Ethyl Alcohol mg/dL 190.5 H 03/15/25 03/15/25 13:10 13:09 WBC 7.86 RBC 5.14 Hgb 13.6 Hct 40.2 MCV 78.2 L MCH 26.5 MCHC 33.8 RDW Std Deviation 41.3 RDW Coeff of Kd 14.5 Plt Count 323 MPV 11.0 Immature Gran % (Auto) 0.3 Neut % (Auto) 47.3 Lymph % (Auto) 41.6 [place] % (Auto) 8.0 Eos % (Auto) 1.1 Baso % (Auto) 1.7 Neut # (Auto) 3.72 Lymph # (Auto) 3.27 [place] # (Auto) 0.63 H Eos # (Auto) 0.09 Baso # (Auto) 0.13 Immature Gran # (Auto) 0.02 PT 10.9 INR 1.0 APTT 23 PTT Ratio 0.9 Sodium 138 Potassium 3.3 L Chloride 100 Carbon Dioxide 26 Anion Gap 12 H BUN 10 Creatinine 0.67 Est Cr Clr Drug Dosing 135.1 eGFR 111.15 BUN/Creatinine Ratio 14.9 Glucose 160 H POC Glucose 163 H Calcium 8.5 L Magnesium 1.7 Total Bilirubin 0.3 AST 25 ALT 23 Alkaline Phosphatase 35 Troponin I High Sens 5.7 Total Protein 7.2 Albumin 3.8 Globulin 3.4 Albumin/Globulin Ratio 1.1 HCG, Qual Negative Urine Color Urine Appearance Urine pH Ur Specific Continental Urine Protein Urine Glucose (UA) Urine Ketones Urine Blood Urine Nitrite Urine Bilirubin Urine Urobilinogen Ur Leukocyte Esterase Urine WBC (Auto) Urine RBC (Auto) U Hyaline Cast (Auto) U Epithel Cells (Auto) Urine Bacteria (Auto) Ethyl Alcohol mg/dL Diagnostic Findings Chest X-Ray 03/15/25 12:52 Clinical History: Possible stroke Technique: A frontal view of the chest was obtained Comparison is made to the prior examination dated 02/16/2025 Findings: There are no confluent pulmonary infiltrates. The heart size is within normal limits. No pleural effusion or pneumothorax is seen. There is no definite pulmonary nodule. No fracture is noted. No foreign body is seen Impression: No active disease Electronically signed by Max iLng 03-15-2025 13:[address] 03/15/25 12:52 Clinical History: Possible stroke. Technique: Axial computed tomography images were obtained of the brain from the vertex to the skull base without intravenous contrast. Findings: There is no sign of intracranial hemorrhage. There is normal perez-white matter differentiation with no sign of acute or old infarction. No midline shift or other form of herniation is identified. There is no hydrocephalus. No obvious mass lesion is seen on this noncontrast examination. The visualized portions of the orbits and paranasal sinuses appear unremarkable. The mastoid air cells appear clear Impression: Unremarkable noncontrast CT of the brain These findings were discussed with Dr. Rey at 1:10 PM and 03/15/2025 Electronically signed by Max Ling 03-15-2025 13:11 PM Head CTA 03/15/25 12:52 Clinical history: Possible stroke Technique: Axial computed tomography images were obtained of the brain after the administration of intravenous contrast according to the CT angiogram protocol Comparison is made to the prior examination dated 01/22/2024 Findings: No definite stenosis or aneurysm is seen of the anterior, middle, or posterior cerebral artery circulations. The visualized vertebral arteries and the basilar artery appear unremarkable. As before, the distal right vertebral artery is diminutive, likely on a congenital basis. Impression: Unremarkable CTA of the brain These findings were discussed with Dr. Rey at 1:10 PM and 03/15/2025 Electronically signed by Max Ling 03-15-2025 13:12 PM Neck CTA 03/15/25 12:52 Clinical history: Possible stroke Technique: Axial computed tomography images were obtained of the neck after the administration of intravenous contrast according to the CT angiogram protocol Comparison is made to the prior CTA dated 01/22/2024 Findings: No stenosis is seen of the common carotid arteries bilaterally. The carotid bulbs appear normal. The remainder of the internal carotid arteries appear patent bilaterally. No stenosis of the external carotid arteries is seen The left vertebral artery is dominant. No definite vertebral artery stenosis is seen. The visualized thoracic aorta appears unremarkable Impression: Unremarkable CTA of the neck Electronically signed by Max Ling 03-15-2025 13:14 PM Brain MRI 03/15/25 13:45 EXAM: MR brain wo con CLINICAL HISTORY: stroke-like symptoms. TECHNIQUE: MRI of the brain was performed without contras,t with multiplanar sequences obtained. COMPARISON: Comparison is made with prior MR dated 01/23/2024. FINDINGS: Brain Parenchyma: Right light radiata high T2/FLAIR signal focus, with mild high DWI, mild low ADC, denoting acute infarction. Interval new patch of bright FLAIR and T2 signal in the posterior limb right internal capsule Stable rest of the periventricular bright foci of microvascular ischemic/ migraine related. Normal perez-white matter differentiation. No mass lesions or focal cortical abnormalities identified. Ventricles and Sulci: Normal size and configuration of the lateral ventricles, third ventricle, and fourth ventricle. No evidence of hydrocephalus or ventriculomegaly. Sylvian fissures, sulci, and cisterns are within normal limits. Posterior Fossa: Cerebellum and brainstem appear normal without evidence of mass lesions or signal abnormalities. Cranial Nerves: Normal course and appearance of cranial nerves identified. Vessels: No evidence of vascular malformations or aneurysms. Intracranial arteries and veins appear normal without evidence of stenosis or occlusion. Orbits and Skull Base: Orbits and skull base structures are normal without evidence of abnormalities. IMPRESSION: 1. Right light radiata high T2/FLAIR signal focus, with mild diffuse restriction, denoting acute infarction. 2. Interval new foci and patches of altered signal in the right centrum semiovale (subacute ischemic), and right internal capsule (chronic ischemic). 3. Unchanged rest of white matter, periventricular microvascular changes. Electronically signed by Nura Varghese 03-15-2025 5:37 PM ECG Additional Comments: NSR, T wave abnormality, consider inferior ischemia. T wave inversions in inferior leads, QTC is 446 Code Status & VTE Plan Code Status Full code Supervising Physician Co-Signing Physician Notes Patient is a 44-year-old female with history of diabetes mellitus, tobacco use disorder, hypertension, hyperlipidemia, morbid obesity, depression and other medical problems presents with history of left-sided weakness, slurred speech, left eye visual change and headache. Patient with known to be at baseline at around 10 AM this morning. Patient is very poor historian and most of the history is obtained from patient's family, ER physician and outpatient records. She admits to drinking alcohol this morning. She states going through a lot of stress/relationship issue and so was drinking alcohol. She also admits to smoke 1 pack of cigarettes per day. Denies any drug use. At around noon patient was noted by family to have left-sided weakness, visual change. Speech is clear currently. She also admits to have transient intermittent chest pain as today but denies any chest pain today. She is unaware of prior strokes. She reports her her mother had stroke in the past. She also has been having some memory issues lately. She has not been eating and drinking for last 4 days, feels depressed but denies any SI. Please review HPI for complete details of presentation. I personally reviewed blood work and imaging studies. Noted hypokalemia with potassium 3.3. Alcohol level 190. Chest x-ray showed no acute process. CT head is unremarkable. Head and neck CTA within normal limits. MRI brain showed findings suggestive of acute CVA and right light radiata. Also showed findings suggestive of subacute and chronic ischemia in the right internal capsule. EKG showed T wave changes in inferior leads III and aVF. Normal sinus rhythm, QTc 446. Physical Exam: Vitals signs as noted above General Appearance:Obese, no apparent distress Head: normocephalic, Atraumatic Eyes: normal inspection, EOMI Neck: supple, Trachea midline Respiratory/Chest: Decreased breath sounds, CTA, No accessory muscle use Cardiovascular: S1, S2, No murmur Abdomen/GI:Soft, Non tender, Bowel sounds present Extremities/Musculoskeletal:normal inspection, no edema Neurologic/Psych:AAOX3, LLE 3/5, LUE 3-4/5, decreased L trimming operator strength Skin: normal color, warm Acute CVA Hypokalemia Chest pain with abnormal EKG, currently chest pain-free Acute stress disorder Tobacco use disorder Alcohol abuse DM II Hypertension, hyperlipidemia, CKD as per records Obesity Will start on aspirin, Plavix, Lipitor Obtain resting echo, lipid panel, trend troponins, repeat EKG tomorrow Consult neurology, neurochecks Counseled to quit smoking tobacco use Monitor for alcohol withdrawal Allow permissive hypertension I personally interviewed and examined the patient at bedside. I have reviewed the advanced practitioner's documentation on the date of service referred in note and agree with plan. Patient's care is coordinated with Madelin Singh PA-C. Please refer to the documentation above for details of patient's presentation and for discussion of other issues. I spent a total [id number] coordinating, documenting, and providing care for this patient excluding time spent in the performance of separately billed services or time spent by another provider/QHP.
[2025-03-15] MEDS: ASPIRIN CHEW 324 MG PO ONE (18:17)
[2025-03-15] MEDS: ACETAMINOPHEN 1,000 MG/100 ML VIAL IV STA (18:18)
[2025-03-15] MEDS: PROMETHAZINE 6.25 MG/50.25 ML BAG IV STA (19:02)
[2025-03-15] MEDS ORDERED: POLYETHYLENE (MIRALAX) 17 GM PACK PO PRN (20:51)
[2025-03-15] MEDS ORDERED: GLUCOSE 10 TAB/TUBE PO PRN (20:51)
[2025-03-15] MEDS ORDERED: CARBOHYDRATES FOR HYPOGLYCEMIA PO PRN (20:51)
[2025-03-15] MEDS ORDERED: DEXTROSE 50% 50 ML SYRINGE IV PRN (20:51)
[2025-03-15] MEDS ORDERED: ONDANSETRON INJ 2 MG/ML 2 ML VIAL IV PRN (20:51)
[2025-03-15] MEDS ORDERED: GLUCAGON FOR INJ 1 MG VIAL SQ PRN (20:51)
[2025-03-15] MEDS ORDERED: LORazepam 1 MG TAB PO PRN ×3 (20:51)
[2025-03-15] MEDS ORDERED: Ativan PO Alcohol Withdrawal--Active Protocol PO PRN (20:51)
[2025-03-15] MEDS ORDERED: GLUCOSE 40% GEL 15 GM TUBE PO PRN (20:51)
[2025-03-15] MEDS ORDERED: PHARMACIST DISCHARGE MED REC CONSULT PRN (20:51)
[2025-03-15] MEDS: POTASSIUM CHLORIDE 10 MEQ TABCR PO ONE (21:31)
[2025-03-15] MEDS: HEPARIN SOD 5,000 UNIT/0.5 ML VIAL SQ SCH (21:31)
[2025-03-15] MEDS: INSULIN ASPART PER UNIT CHARGE SC SCH (21:54)
[2025-03-15] MEDS: NICOTINE 21 MG/24 HR TDSY TD SCH (23:12)
[2025-03-15 23:20] VITALS: RESP 18; TEMP 97.9
[2025-03-16] MEDS: METOPROLOL SUCC 25MG EXT REL TAB PO STA (01:54)
[2025-03-16] MEDS: MELATONIN 3 MG TAB PO PRN (02:13)
[2025-03-16 06:58] LABS: Basophils # (auto) 0.11 K/uL (0.00-0.20); Basophils % (auto) 2.1 %; Eosinophils % (auto) 1.9 %; Hematocrit (blood only) 39.5 % (37.0-47.0); Hemoglobin 13.4 g/dl (12.0-16.0); Immature Granulocytes # (auto) 0.01 K/uL (0.01-0.20); Immature Granulocytes % (auto) 0.2 %; Lymphocytes # (auto) 2.17 K/uL (1.20-3.40); Lymphocytes % (auto) 40.8 %; Mean Corpuscular Hemoglobin 26.6 pg (25.0-34.0); Mean Corpuscular Hgb Conc 33.9 g/dL (32.0-36.0); Mean Corpuscular Volume 78.4 fL (80.0-100.0); Mean Platelet Volume 11.3 fL (9.4-12.4); Monocytes # (auto) 0.53 K/uL (0.11-0.59); Platelet Count 304 K/uL (130-400); RDW Coefficient of Variation 14.6 % (11.5-14.5); RDW Standard Deviation 41.5 fL (36.4-46.3); Red Blood Count 5.04 M/uL (4.20-5.40); White Blood Count 5.32 K/ul (4.8-10.8)
[2025-03-16 07:22] LABS: Anion Gap 10 (3-11); BUN Creatinine Ratio 16.9 (10-20); Blood Urea Nitrogen 12 mg/dl (6-23); Calcium 8.3 mg/dl (8.6-10.3); Carbon Dioxide 28 mmol/L (21-32); Chloride 102 mmol/L (98-107); Chol HDL Ratio 4.6 (0-5); Cholesterol 176 mg/dl (0-200); Creatinine Clr Calc Pharmacy 125.4 ml/min; Glucose 135 mg/dl (70-99(Fasting)); HDL Cholesterol 38 mg/dl; Magnesium 1.6 mg/dl (1.7-2.4); Potassium 3.4 mmol/L (3.5-5.1); Sodium 140 mmol/L (136-145); Triglycerides 448 mg/dl (0-150)
[2025-03-16] MEDS: CLOPIDOGREL BISULFATE 75 MG TAB PO SCH (08:16)
[2025-03-16] MEDS: MULTIVITAMIN TAB PO SCH (08:16)
[2025-03-16] MEDS: FOLIC ACID 1 MG TAB PO SCH (08:16)
[2025-03-16] MEDS: METOPROLOL SUCC 50MG EXT REL TAB PO SCH ×2 (08:16)
[2025-03-16] MEDS: ASPIRIN 81 MG ECTAB PO SCH (08:16)
[2025-03-16] MEDS: ATORVASTATIN 40 MG TAB PO SCH (08:16)
[2025-03-16] MEDS: THIAMINE HCL 100 MG TAB PO SCH (08:16)
--- NOTE | 2025-03-16 08:44 | Electrocardiogram Report ---
Test Reason : Blood Pressure : */* mmHG Vent. Rate : 82 BPM Atrial Rate : 82 BPM P-R Int : 152 ms QRS Dur : 100 ms QT Int : 408 ms P-R-T Axes : 74 15 0 degrees QTcB Int : 476 ms Normal sinus rhythm Left atrial enlargement Cannot r/o septal IL age undetermined vs lead placement Normal ECG When compared with ECG of 15-Mar-2025 13:06, (unconfirmed) Nonspecific T wave abnormality no longer evident in Lateral leads Confirmed by Mariah Paredes ([id number]) on 03/16/2025 8:43:52 AM Referred By: REFERRED SELF Confirmed By: Mariah Paredes
[2025-03-16] MEDS ORDERED: NICOTINE 21 MG/24 HR TDSY TD SCH (09:00)
[2025-03-16] MEDS: POTASSIUM CHLORIDE CRTAB 20 MEQ TABCR PO STA (09:10)
[2025-03-16] MEDS: MAGNESIUM OXIDE 400 MG TAB PO SCH (09:10)
--- NOTE | 2025-03-16 09:31 | Electrocardiogram Report ---
Test Reason : Blood Pressure : */* mmHG Vent. Rate : 78 BPM Atrial Rate : 78 BPM P-R Int : 164 ms QRS Dur : 106 ms QT Int : 392 ms P-R-T Axes : 69 55 -8 degrees QTcB Int : 446 ms Normal sinus rhythm Left atrial enlargement T wave abnormality, consider inferior ischemia Abnormal ECG When compared with ECG of 16-Feb-2025 00:59, T wave inversion now evident in Inferior leads Nonspecific T wave abnormality now evident in Lateral leads Qtc has decreased Confirmed by Mariah Paredes ([id number]) on 03/16/2025 9:31:26 AM Referred By: REFERRED SELF Confirmed By: Mariah Paredes
[2025-03-16 11:18] VITALS: BP 161/111; O2SAT 98
[2025-03-16] MEDS: ACETAMINOPHEN 325 MG TAB PO PRN (12:10)
--- NOTE | 2025-03-16 13:41 | Neurology Consultation ---
Date of Consultation March 16, 2025 Assessment & Plan (1) Acute ischemic stroke: Acute to subacute right hemispheric ischemic stroke Recommend hypercoagulable workup Echocardiogram as part of complete stroke workup Continue frequent neurological assessments Obtain stat CT brain without contrast for any acute neurological decline Continue to monitor/control blood pressure & blood glucose Continue to monitor telemetry closely Recommend ZioPatch at DC if no evidence of arrhythmia during inpatient monitoring Continue to monitor renal and hepatic function, keep euvolemic Metabolic workup should include hgbA1c, fasting lipids Recommend DAPT for at least 3 weeks Recommend high dose statin therapy indefinitely if tolerated Ok from neurology perspective for VTE prophylaxis PT/OT/SLT to eval and treat Recommend eval for PANCHO and consider outpatient polysomnography Follow up outpatient Neurology Telehealth Consultation Telehealth Information Telehealth Information: I performed this visit using a real-time telehealth connection between my location and the patients location ([facility]). After connecting through interactive tele-video, patient was identified by name and date of and/or wristband check.Patient (or authorized healthcare insurance follow up representative) was informed that this was a telemedicine visit and it was being conducted confidentially over secure lines. My office door was closed and no one else was present in the room with me.Patient (or authorized healthcare insurance follow up representative) provided consent to proceed with the visit, expressed an understanding of privacy and security of the telemedicine visit, and gave permission to have a hospital insurance follow up representative in the room in order to assist with the visit and to conduct portions of the visit, as needed. I informed the patient (or authorized healthcare insurance follow up representative) that I reviewed their record and presented the opportunity for them to ask any questions regarding the visit today. The patient agreed to participate. History of Present Illness Reason for Consultation: Stroke like symptoms Requesting Physician: Dr Wilcox Attending Physician: Mary Anne Wilcox MD History of Present Illness 44yo right handed female with known hx of HTN, dyslipidemia, DM tobacco and ETOH usage as well as chronic renal failure presented with report of dysarthria and left hemiparesis and vision changes. She has undergone emergent stroke imaging upon arrival including CT brain without contrast, personally reviewed, revealing no overt evidence of hemorrhage. CT angiographic studies of head and neck, also personally reviewed, reveal no overt evidence of large vessel occlusion or significant/flow limiting stenosis. MRI brain depicts areas of likley acute to subacute infarcts within right hemispheric light radiata. I have performed televideo consultation. She is alert & oriented; able to answer all questions appropriately, name objects on televideo monitor, repeat phrases and perform complex/embedded commands without deficit. Neurological exam reveals no drift BUE, noted LLE weakness. Denies ongoing paresthesia. Reports vision changes resolved. Allergies Allergy/AdvReac Type Severity Reaction Status Date / Time No Known Allergies Allergy Verified 03/15/25 16:30 Home Medications Medication Instructions Recorded Confirmed Type lisinopril 40 mg tablet 40 mg PO QAM 11/22/18 03/15/25 History metformin 500 mg tablet,extended 1,000 mg PO QAM 11/22/18 03/15/25 History release 24 hr metoprolol succinate 100 mg 100 mg PO QAM 11/22/18 03/15/25 History tablet,extended release 24 hr albuterol sulfate 90 mcg/actuation 2 puff inhalation Q4H PRN Wheezing 09/21/22 03/15/25 History aerosol inhaler amlodipine 5 mg tablet 5 mg PO QAM 09/21/22 03/15/25 History metoprolol succinate 50 mg 50 mg PO QAM 09/21/22 03/15/25 History tablet,extended release 24 hr hydralazine 25 mg tablet 25 mg PO DAILY 03/01/23 03/15/25 History hydrochlorothiazide 25 mg tablet 25 mg PO QAM 03/15/25 03/15/25 History Patient History Medical History (Updated 03/16/25 @ 13:43 by Noah Ugalde DO) Diabetes Hypertension Surgical History (Updated 03/15/25 @ 18:01 by Madelin Singh PA-C) History of delivery 2006, 2012, 2013 Hx of colonoscopy History of carpal tunnel surgery Family History (Updated 03/15/25 @ 18:02 by Madelin Singh PA-C) Mother Diabetes Hypertension Kidney disease Brother Hypertension Heart disease Social History Smoking Status: Current every day smoker Tobacco Type: Cigarettes Second Hand Exposure: No; Do You Dip or Chew Tobacco: No; Tobacco Cessation Education Requested by Patient: No Hx Alcohol Use: Yes Alcohol type: hard liquor and other Hx Substance Use: No Preferred Language: Dominican Communication Ability: Effective Counter Installer Required: No Beliefs That Will Affect Care: None Current Living Situation: Other Current Living Situation Comment: Lives with children Other Information That Helps Us Care for You: No Feels Safe at Home: Yes Safety Concerns: Feels Safe At This Time Assistive Devices: None Physical Exam Neurological Examination: Mental Status: Awake and alert. Oriented to person, place, and time. Fluency naming repetition and comprehension appear grossly intact. Affect remains appropriate. CN testing: I: Deferred II: Reports no changes in visual acuity III/IV/: No evidence of gaze preference, hippus, nystagmus or roving eye movements V: Facial sensation reportedly grossly intact to light touch bilaterally VII: Facial movements appear without evidence of asymmetry VIII: Hearing appears grossly intact to loud voice bilaterally IX/X: Palate is unable to be accurately visualized via telemedicine XI: Shoulder shrug appears symmetric/ grossly intact bilaterally XII: Tongue protrudes midline without evidence of biting Motor exam: LLE weakness Sensory: Sensation is reportedly grossly intact throughout Coordination: No apparent evidence of dysmetria or dysdiadochokinesia Reflexes: Deferred Gait: Deferred Results & Data Vital Signs (Past 12 Hours) Vital Signs Temp Pulse Pulse Resp BP BP Pulse Ox 03/16/25 11:17 36.6 C 76 18 161/111 H 98 03/16/25 07:39 81 03/16/25 07:31 36.6 C 88 18 166/116 H 96 03/16/25 02:39 36.6 C 80 18 144/65 H 98 O2 Del Method 03/16/25 11:17 Room Air 03/16/25 07:39 03/16/25 07:31 Room Air 03/16/25 02:39 Room Air Laboratory Results Abnormal lab results 03/15/25 03/15/25 03/15/25 Range/Units 13:10 13:15 15:17 MCV (80.0-100.0) fL RDW Coeff of Kd (11.5-14.5) % Potassium 3.3 L (3.5-5.1) mmol/L Anion Gap 12 H (3-11) Glucose 160 H (70-99(Fasting)) mg/dl POC Glucose 129 H (70-99) mg/dl Calcium 8.5 L (8.6-10.3) mg/dl Magnesium (1.7-2.4) mg/dl Triglycerides (0-150) mg/dl Ur Specific [place] (1.000-1.030) Urine Protein (Negative) Urine Blood (Negative) Urine RBC (Auto) (0-2) /hpf Ethyl Alcohol mg/dL 190.5 H (<10.0) mg/dl 03/15/25 03/15/25 03/16/25 Range/Units 16:43 20:56 00:57 MCV (80.0-100.0) fL RDW Coeff of Kd (11.5-14.5) % Potassium (3.5-5.1) mmol/L Anion Gap (3-11) Glucose (70-99(Fasting)) mg/dl POC Glucose 141 H 113 H (70-99) mg/dl Calcium (8.6-10.3) mg/dl Magnesium (1.7-2.4) mg/dl Triglycerides (0-150) mg/dl Ur Specific [place] > 1.045 H (1.000-1.030) Urine Protein 1+ H (Negative) Urine Blood 3+ H (Negative) Urine RBC (Auto) >20 H (0-2) /hpf Ethyl Alcohol mg/dL (<10.0) mg/dl 03/16/25 03/16/25 03/16/25 Range/Units 06:06 07:28 11:16 MCV 78.4 L (80.0-100.0) fL RDW Coeff of Kd 14.6 H (11.5-14.5) % Potassium 3.4 L (3.5-5.1) mmol/L Anion Gap (3-11) Glucose 135 H (70-99(Fasting)) mg/dl POC Glucose 139 H 132 H (70-99) mg/dl Calcium 8.3 L (8.6-10.3) mg/dl Magnesium 1.6 L (1.7-2.4) mg/dl Triglycerides 448 H (0-150) mg/dl Ur Specific [place] (1.000-1.030) Urine Protein (Negative) Urine Blood (Negative) Urine RBC (Auto) (0-2) /hpf Ethyl Alcohol mg/dL (<10.0) mg/dl Diagnostic Findings Brain MRI 03/15/25 13:45 EXAM: MR brain wo con CLINICAL HISTORY: stroke-like symptoms. TECHNIQUE: MRI of the brain was performed without contras,t with multiplanar sequences obtained. COMPARISON: Comparison is made with prior MR dated 01/23/2024. FINDINGS: Brain Parenchyma: Right light radiata high T2/FLAIR signal focus, with mild high DWI, mild low ADC, denoting acute infarction. Interval new patch of bright FLAIR and T2 signal in the posterior limb right internal capsule Stable rest of the periventricular bright foci of microvascular ischemic/ migraine related. Normal perez-white matter differentiation. No mass lesions or focal cortical abnormalities identified. Ventricles and Sulci: Normal size and configuration of the lateral ventricles, third ventricle, and fourth ventricle. No evidence of hydrocephalus or ventriculomegaly. Sylvian fissures, sulci, and cisterns are within normal limits. Posterior Fossa: Cerebellum and brainstem appear normal without evidence of mass lesions or signal abnormalities. Cranial Nerves: Normal course and appearance of cranial nerves identified. Vessels: No evidence of vascular malformations or aneurysms. Intracranial arteries and veins appear normal without evidence of stenosis or occlusion. Orbits and Skull Base: Orbits and skull base structures are normal without evidence of abnormalities. IMPRESSION: 1. Right light radiata high T2/FLAIR signal focus, with mild diffuse restriction, denoting acute infarction. 2. Interval new foci and patches of altered signal in the right centrum semiovale (subacute ischemic), and right internal capsule (chronic ischemic). 3. Unchanged rest of white matter, periventricular microvascular changes. Electronically signed by Nura Varghese 03-15-2025 5:37 PM Medications Administered Home Medications Medication Instructions Recorded Confirmed Last Taken lisinopril 40 mg tablet 40 mg PO QAM 11/22/18 03/15/25 2 Days Ago ~03/13/25 metformin 500 mg tablet,extended 1,000 mg PO QA 11/22/18 03/15/25 2 Days Ago release 24 hr ~03/13/25 metoprolol succinate 100 mg 100 mg PO QAM 11/22/18 03/15/25 2 Days Ago tablet,extended release 24 hr ~03/13/25 albuterol sulfate 90 mcg/actuation 2 puff inhalation Q4H PRN Wheezing 09/21/22 03/15/25 03/01/23 08:00 aerosol inhaler amlodipine 5 mg tablet 5 mg PO QA 09/21/22 03/15/25 2 Days Ago ~03/13/25 metoprolol succinate 50 mg 50 mg PO QAM 09/21/22 03/15/25 2 Days Ago tablet,extended release 24 hr ~03/13/25 hydralazine 25 mg tablet 25 mg PO DAILY 03/01/23 03/15/25 2 Days Ago ~03/13/25 hydrochlorothiazide 25 mg tablet 25 mg PO QAM 03/15/25 03/15/25 2 Days Ago ~03/13/25 Active Medications Generic Name Dose Route Start Last Admin Trade Name Freq PRN Reason Stop Dose Admin Acetaminophen 650 mg 03/15/25 20:51 03/16/25 12:10 Acetaminophen 325 Mg Tab PO 04/14/25 20:50 650 mg Q4H PRN Administration Pain or Fever Aspirin 81 mg 03/16/25 09:00 03/16/25 08:16 Aspirin 81 Mg Ectab PO 04/15/25 08:59 81 mg QAM KIP Administration Atorvastatin Calcium 40 mg 03/16/25 09:00 03/16/25 08:16 Atorvastatin 40 Mg Tab PO 04/15/25 08:59 40 mg QAM KIP Administration Clopidogrel Bisulfate 75 mg 03/16/25 09:00 03/16/25 08:16 Clopidogrel Bisulfate 75 Mg Tab PO 04/15/25 08:59 75 mg QAM KIP Administration Folic Acid 1 mg 03/16/25 09:00 03/16/25 08:16 Folic Acid 1 Mg Tab PO 04/15/25 08:59 1 mg QAM KIP Administration Heparin Sodium (Porcine) 5,000 units 03/15/25 22:00 03/16/25 06:17 Heparin Sod 5,000 Unit/0.5 Ml Vial SQ 04/14/25 21:59 5,000 units Q8 KIP Administration Insulin Aspart 0 units 03/15/25 21:00 03/16/25 12:06 Insulin Aspart Per Unit Charge SC 04/14/25 20:59 1 units ACHS KIP Administration Magnesium Oxide 400 mg 03/16/25 09:00 03/16/25 09:10 Magnesium Oxide 400 Mg Tab PO 04/15/25 08:59 400 mg BID KIP Administration Melatonin 9 mg 03/16/25 02:03 03/16/25 02:13 Melatonin 3 Mg Tab PO 04/15/25 02:02 9 mg HS PRN Administration Sleep Metoprolol Succinate 50 mg 03/16/25 09:00 03/16/25 08:16 Metoprolol Succ 50mg Ext Rel Tab PO 04/15/25 08:59 50 mg QAM KIP Administration Metoprolol Succinate 100 mg 03/16/25 09:00 03/16/25 08:16 Metoprolol Succ 50mg Ext Rel Tab PO 04/15/25 08:59 100 mg QAM KIP Administration Miscellaneous 1 each 03/16/25 08:59 03/16/25 08:17 Remove Nicoderm Patch N/A 04/15/25 08:58 1 each DAILY@0859 KIP Administration Multivitamins 1 tab 03/16/25 09:00 03/16/25 08:16 Multivitamin Tab PO 04/15/25 08:59 1 tab QAM KIP Administration Nicotine 1 patch 03/15/25 22:45 03/16/25 08:16 Nicotine 21 Mg/24 Hr Tdsy TD 04/14/25 22:44 1 patch QAM KIP Administration Thiamine HCl 100 mg 03/16/25 09:00 03/16/25 08:16 Thiamine Hcl 100 Mg Tab PO 04/15/25 08:59 100 mg QAM KIP Administration
[2025-03-16] MEDS ORDERED: STROKE PATIENT DISCHARGE STA (14:28)
[2025-03-16 14:38] VITALS: PULSE 85
--- NOTE | 2025-03-16 14:40 | Discharge Summary ---
Discharge Summary Date of Service March 16, 2025 Principal Dx & Hospital Course #1 = Principal Diagnosis (1) CVA (cerebral vascular accident): (2) Stroke-like symptoms: (3) Alcohol use: (4) Tobacco use: (5) HLD (hyperlipidemia): (6) DM II (diabetes mellitus, type II), controlled: Plan This is a 44-year-old female with PMHx significant for HTN, HLD, DM type II, tobacco abuse, alcohol use, moderate to severe depressive disorder, CKD who presented to the hospital as a stroke alert with complaints of strokelike symptoms including: slurred speech, left sided leg weakness, left eye blurry vision. She has difficulty recalling events [employer]IN[employer]. Acute Cerebrovascular Accident Head CT, Head and neck CTA all unremarkable- did not meet criteria for thrombolytic Brain MRI noting acute to subacute right hemispheric strokes Echo with EF 65-70%, no ASD and no interarterial shunt, Grade 1 diastolic dysfunction Recent cholesterol panel was obtained on 02/19/25 with Total cholesterol - 198, LDL 117, HDL 60, triglycerides 106 Last A1C 7.7 on 02/19/25 Was started on aspirin and plavix and atorvastatin PT/OT recommended discharge home, speech consult as well with no issues Neurology was consulted, appreciate recs. recommended/stated the following on discharge: -DAPT with aspirin and Plavix for at least 3 weeks -continue statin indefinitely if tolerated -Sleep study on discharge -fci security monitor (eg. Zio patch) -hypercoagulable workup Pt will need close PCP followup after discharge for above. T wave inversion, inferior leads Concern for underlying inferior ischemia HTN Repeat EKGs with no concern for ischemia Pt asymptomatic Troponin negative Echo with EF 65-70%, no ASD and no interarterial shunt, Grade 1 diastolic dysfunction Will need fci security monitor (eg. Zio patch) per recommendations noted above DM II Last A1C 7.7 on 02/19/25 continue home meds with PCP followup Alcohol Use Severe Depression Possible situational depressive episode EtOh level of 190 on admission, pt states she does not routinely drink alcohol but had recent stressors at home minimal Po intake x 4 days, alcohol use/binge drinking Denies homicidal and suicidal ideations Not on any antidepressant medications - would possibly benefit from such Cessation encouraged AWSS protocol MVI, thiamine, folic acid Psychiatry consulted- pt to follow up with [facility] as an outpt. Tobacco Use Encourage cessation Notes For Next Care Provider As above Medication Changes From Visit Daily plavix, aspirin, statin Admission HPI Per Admitting Provider This is a 44-year-old female with PMHx of HTN, HLD, DM type II, tobacco abuse, alcohol use, moderate to severe depressive disorder, CKD who presented to the hospital as a stroke alert with complaints of strokelike symptoms including: slurred speech, left sided leg weakness, left eye blurred vision. She has difficulty recalling events of earlier today. Children x 3 are sitting at bedside and state she was in normal state of health around 10 am and developed slurring of speech around noon. Oldest child was home at 2 pm and notes that when he arrived home she had increased weakness and had difficulty getting up out of bed. Pt reports poor Po intake over the past 4 days due to significant stress regarding relationship issues with boyfriend. She also admits this is why she was drinking alcohol this morning. Pt does not offer up kind of alcohol/amount information as she says she is having issues remembering. Denies any thoughts of homicide or suicide, denies any drug use. She does smoke cigarettes, 1 ppd for many years. Pt was recently on a course of antibiotics for diverticulitis finishing around 2 weeks ago. Denies issues with abdominal complaints since then. Pt children live at home with her, ages 21, 12 and 10. The are present at bedside and support the history with timing. Pt reports mother had cva at unknown age. Patient underwent CTA of the head and neck were unremarkable in the ER. She underwent a brain MRI which shows right cornea radiata high signal focus with mild diffuse restriction, denoting an acute infarction. Interval new foci of patches of the altered signal in the right centrum semimobile (subacute ischemic), and right internal capsule (chronic ischemic). Unchanged for rest of white matter, periventricular microvascular changes. Admission Exam Per Admitting Provider General: awake, alert, no apparent distress, black, obese female, flat affect, tearful at times Head: Normocephalic, atraumatic ENT: PERRL, EOMI, no pharyngeal exudate, mucous membranes moist Chest: Clear to auscultation but decreased, on room air, no adventitious breath sounds Cardiac: Regular rate and rhythm, no murmur, no JVD, normal peripheral pulses, good capillary refill Abdominal: NABS x 4 quadrants, soft, nondistended, nontender to palpation, no rebound or guarding Extremities: Normal inspection, no peripheral edema or erythema, calfs nontender to palpation Psych: flat affect, tearful at times. Denies homicidal or suicidal ideations Neuro: AAO x 3, strength RUE and RLE rated 5/5, LUE with 3-4 tongue and groove machine setter strength but can raise arms above head so rated 4/5, and LLE with weakness, rated 2/5 in lower extremity with dorsiflexion and states she is unable to bend the left knee, speech is clear, no peripheral sensory deficits, had difficulty performing smile to show teeth, no specific asymmetry or facial droop. Discharge Exam General: Alert, oriented. No acute distress Neuro: left sided upper and lower extremity weakness noted HEENT: NC/AT CV: RRR Resp: Breath sounds clear bilaterally, no increased effort of breathing Abdomen: Soft, nontender Extremities: No edema in lower extremities bilaterally. Updated Medication List Medication Instructions Recorded Confirmed Type lisinopril 40 mg tablet 40 mg PO QAM 11/22/18 03/15/25 History metformin 500 mg tablet,extended 1,000 mg PO QAM 11/22/18 03/15/25 History release 24 hr metoprolol succinate 100 mg 100 mg PO QAM 11/22/18 03/15/25 History tablet,extended release 24 hr albuterol sulfate 90 mcg/actuation 2 puff inhalation Q4H PRN Wheezing 09/21/22 03/15/25 History aerosol inhaler amlodipine 5 mg tablet 5 mg PO QAM 09/21/22 03/15/25 History metoprolol succinate 50 mg 50 mg PO QAM 09/21/22 03/15/25 History tablet,extended release 24 hr hydrochlorothiazide 25 mg tablet 25 mg PO QAM 03/15/25 03/15/25 History aspirin 81 mg tablet,delayed 81 mg PO QAM #30 tabs 03/16/25 Rx release atorvastatin 40 mg tablet 40 mg PO QAM #30 tabs 03/16/25 Rx clopidogrel 75 mg tablet 75 mg PO QAM #30 tabs 03/16/25 Rx Hospital Stay Data Consultations 03/15/25 17:57 ED Decision to Admit Stat 03/15/25 20:51 Consult Neurology Routine 03/16/25 08:32 Consult Behavioral Health Liaison Routine Diagnostic Imagining Performed 03/15/25 12:52 CT angio head w con Stat CT angio neck with con Stat CT head/brain wo con Stat 03/15/25 13:45 MR brain wo con Stat Chest X-Ray 03/15/25 12:52 Clinical History: Possible stroke Technique: A frontal view of the chest was obtained Comparison is made to the prior examination dated 02/16/2025 Findings: There are no confluent pulmonary infiltrates. The heart size is within normal limits. No pleural effusion or pneumothorax is seen. There is no definite pulmonary nodule. No fracture is noted. No foreign body is seen Impression: No active disease Electronically signed by Max Ling 03-15-2025 13:[address] 03/15/25 12:52 Clinical History: Possible stroke. Technique: Axial computed tomography images were obtained of the brain from the vertex to the skull base without intravenous contrast. Findings: There is no sign of intracranial hemorrhage. There is normal perez-white matter differentiation with no sign of acute or old infarction. No midline shift or other form of herniation is identified. There is no hydrocephalus. No obvious mass lesion is seen on this noncontrast examination. The visualized portions of the orbits and paranasal sinuses appear unremarkable. The mastoid air cells appear clear Impression: Unremarkable noncontrast CT of the brain These findings were discussed with Dr. Rey at 1:10 PM and 03/15/2025 Electronically signed by Max Ling 03-15-2025 13:11 PM Head CTA 03/15/25 12:52 Clinical history: Possible stroke Technique: Axial computed tomography images were obtained of the brain after the administration of intravenous contrast according to the CT angiogram protocol Comparison is made to the prior examination dated 01/22/2024 Findings: No definite stenosis or aneurysm is seen of the anterior, middle, or posterior cerebral artery circulations. The visualized vertebral arteries and the basilar artery appear unremarkable. As before, the distal right vertebral artery is diminutive, likely on a congenital basis. Impression: Unremarkable CTA of the brain These findings were discussed with Dr. Rey at 1:10 PM and 03/15/2025 Electronically signed by Max Ling 03-15-2025 13:12 PM Neck CTA 03/15/25 12:52 Clinical history: Possible stroke Technique: Axial computed tomography images were obtained of the neck after the administration of intravenous contrast according to the CT angiogram protocol Comparison is made to the prior CTA dated 01/22/2024 Findings: No stenosis is seen of the common carotid arteries bilaterally. The carotid bulbs appear normal. The remainder of the internal carotid arteries appear patent bilaterally. No stenosis of the external carotid arteries is seen The left vertebral artery is dominant. No definite vertebral artery stenosis is seen. The visualized thoracic aorta appears unremarkable Impression: Unremarkable CTA of the neck Electronically signed by Max Ling 03-15-2025 13:14 PM Brain MRI 03/15/25 13:45 EXAM: MR brain wo con CLINICAL HISTORY: stroke-like symptoms. TECHNIQUE: MRI of the brain was performed without contras,t with multiplanar sequences obtained. COMPARISON: Comparison is made with prior MR dated 01/23/2024. FINDINGS: Brain Parenchyma: Right light radiata high T2/FLAIR signal focus, with mild high DWI, mild low ADC, denoting acute infarction. Interval new patch of bright FLAIR and T2 signal in the posterior limb right internal capsule Stable rest of the periventricular bright foci of microvascular ischemic/ migraine related. Normal perez-white matter differentiation. No mass lesions or focal cortical abnormalities identified. Ventricles and Sulci: Normal size and configuration of the lateral ventricles, third ventricle, and fourth ventricle. No evidence of hydrocephalus or ventriculomegaly. Sylvian fissures, sulci, and cisterns are within normal limits. Posterior Fossa: Cerebellum and brainstem appear normal without evidence of mass lesions or signal abnormalities. Cranial Nerves: Normal course and appearance of cranial nerves identified. Vessels: No evidence of vascular malformations or aneurysms. Intracranial arteries and veins appear normal without evidence of stenosis or occlusion. Orbits and Skull Base: Orbits and skull base structures are normal without evidence of abnormalities. IMPRESSION: 1. Right light radiata high T2/FLAIR signal focus, with mild diffuse restriction, denoting acute infarction. 2. Interval new foci and patches of altered signal in the right centrum semiovale (subacute ischemic), and right internal capsule (chronic ischemic). 3. Unchanged rest of white matter, periventricular microvascular changes. Electronically signed by Nura Varghese 03-15-2025 5:37 PM Discharge Instructions Given to Patient (Per Discharging Provider) Gauri, You were diagnosed with an acute stroke. You were seen by the Neurologist who recommended discharge home with the medications plavix and aspirin to be taken daily. They also recommend that you continue with the medication atorvastatin. Neurology would like you to have further testing that your primary care provider can help with. Our nurse navigator will give you a call tomorrow to help set you up with a primary care provider. Again, please keep close follow up with your primary care provider after discharge. Please keep followup with [facility] as well given your recent stressors at home and alcohol use. Please do not hesitate to come back to the emergency room if your symptoms worsen or return. It was a pleasure taking care of you while you were here. Total Time Total Time Spent Total Time Spent (In Minutes): 60
== END 2025-03-16 15:04 | disposition home or self-care (01) | DRG 66 ==
LOC: EDBD → ED 12:53 → 2S 18:00 → SUATTDRO 18:00 → INTOOBSV 18:00 → 2S 20:29